=== PATIENT | female | born 1940 | race Hispanic/Latino ===

== ENCOUNTER 2016-11-04 09:41 | Outpatient (CLI) | payer MEDICARE, OTHER ==
[2016-11-04 10:18] LABS: Blood Urea Nitrogen 13 mg/dL (7-17)
[2016-11-04] MEDS ORDERED: NACL ONE (10:26)
--- NOTE | 2016-11-08 09:40 | Cat Scan Report ---
CT ANGIO ABD/FEMORAL ABD AORTA: HISTORY: Abdominal aortic aneurysm without rupture. TECHNIQUE: Helical CT imaging with 1.25mm reconstructions following IV contrast. Sagittal and Coronal 2D reformatted images. 3 dimensional volume rendering technique. Stenosis was measured using NASCET criteria. COMPARISON: 08/18/15. FINDINGS: ABDOMINAL AORTA: Moderate diffuse partially calcified plaques are identified throughout the abdominal aorta. Fusiform dilatation of the infrarenal aorta has increased slightly since the comparison exam and now measures 4.5 cm. Mural thrombus is stable. No aortic stenosis. The celiac axis and superior mesenteric artery are patent with less than 50% stenosis. The origin of the inferior mesenteric artery is occluded. The left renal artery is widely patent with less than 20% stenosis. There is moderate partially calcified plaque in the proximal right renal artery with stenosis measuring 60%. ILIAC ARTERIES: The right common iliac artery is occluded which is unchanged. Collateral vessels reconstitute flow in the right internal and external iliac arteries which demonstrate less than 30% stenosis. There is moderate irregular calcified plaque in the distal left common iliac artery with 60% stenosis. The left internal and external iliac arteries demonstrate less than 30% stenosis. RIGHT LOWER EXTREMITY: The superficial femoral artery is widely patent with less than 20% stenosis. There is a focal calcific plaque in the right popliteal artery with 70% stenosis. The arterial structures distal to the knee demonstrate mild disease but are patent to the ankle.. LEFT LOWER EXTREMITY: The superficial femoral artery is widely patent with less than 20% stenosis. There is also a focal area of narrowing in the left popliteal artery with 50% stenosis. The arterial structures distal to knee are patent to the ankle. Abdominal and pelvic viscera remain unremarkable. No evidence for mass, adenopathy or inflammatory changes. Right inguinal hernia containing a short segment of small bowel loops is again noted, no obstruction. Impression: The fusiform AAA has increased from 4.2 cm to 4.5 cm. Chronic occlusion of the right common iliac artery. Unchanged. 60 % stenosis in the left common iliac artery. 70% stenosis in the right popliteal artery. Possible right renal artery stenosis measuring 60% or greater.
== END 2016-11-04 09:42 | disposition home or self-care (01) ==
LOC: CT 09:41
PROVIDERS: ATTEND Surgery Vascular Surgery
DX: I66.23 Occlusion and stenosis of bilateral posterior cerebral arteries (principal); I71.4 Abdominal aortic aneurysm, without rupture
CPT/HCPCS: 36415; 75635; 82565; 84520; Q9967

== ENCOUNTER 2017-11-17 10:43 | Emergency (ER) | payer MEDICARE, OTHER ==
[2017-11-17 10:59] VITALS: BP 139/47
[2017-11-17] MEDS ORDERED: NORCO 5/325 PO ONE (11:58)
--- NOTE | 2017-11-17 11:58 | Emergency Department Report ---
Blank Doc - Documentation Documentation: Patient is 77-year-old female who tripped over a suitcase and fell yesterday. Patient has left foot and left rib pain. Patient is having a difficult time taking a deep breath secondary to pain in the ribs. Patient also is unable to bear weight. Patient will be sent to x-ray for x-rays of the left foot and left ribs and be reassessed by the NALLELY
--- NOTE | 2017-11-17 14:06 | XRay Report ---
LEFT FOOT, 3 views: History: Injury. Osteopenia. There is a questionable nondisplaced fracture through the fourth metatarsal neck. Correlate for point tenderness. The remaining bony structures are intact. No erosive joint pathology is appreciated. the soft tissues are unremarkable. IMPRESSION: Osteopenia. Questionable nondisplaced fracture of the fourth metatarsal neck. Correlate for point tenderness.
--- NOTE | 2017-11-17 14:07 | XRay Report ---
LEFT RIBS, 3 VIEWS: History: pain. Routine views of the rib cage demonstrate normal mineralization with no significant contour abnormalities, fractures or destructive lesions. PA view of the chest demonstrates no underlying cardiopulmonary abnormalities, fluid or pneumothorax. IMPRESSION: Unremarkable left rib series.
--- NOTE | 2017-11-17 15:02 | Emergency Department Report ---
ED Lower Extremity HPI - General Chief Complaint: Extremity Injury, Lower Stated Complaint: FALL Time Seen by Provider: 11/17/17 11:46 Source: patient, family Mode of arrival: Wheelchair Limitations: No Limitations - History of Present Illness Initial Comments: This is a 77-year-old female nontoxic, well nourished in appearance, no acute signs of distress presents to the ED with c/o of left foot and left rib pain status post fall. Patient stated she was walking last night and tripped over a suitcase and landed while falling she fell hit her left rib region against the lamp. Patient stated that she has slight difficulty taking deep breaths secondary to pain in the left rib region. Patient states she is unable to bear weight. Patient denies any head trauma or loss of consciousness. Patient denies any other trauma. Patient denies any chest pain, shortness of breath, fever, chills, nausea, vomiting, headache or stiff neck. Denies any numbness or tingling. Denies any joint swelling or joint redness. States allergies to penicillin. MD Complaint: foot injury, other (left rib pain) -: Last night Injury: Foot: Left Type of Injury: blunt Place: home Severity: mild Severity scale (0 -10): 8 Improves With: immobilization Worsens With: movement, palpation Context: fall, direct blow Associated Symptoms: unable to bear weight. denies: snap/pop sensation, swelling, numbness, tingling, able to partially bear weight, ambulatory - Related Data Previous Rx's Medication Instructions Recorded Last Taken Type Acetaminophen/Codeine [Tylenol 1 tab PO Q6H PRN #15 tab 11/17/17 Unknown Rx /Codeine # 3 tab] Allergies Allergy/AdvReac Type Severity Reaction Status Date / Time Penicillins AdvReac Unknown Unverified 06/15/13 12:59 ED Review of Systems ROS: Stated complaint: FALL Other details as noted in HPI Constitutional: denies: chills, fever Eyes: denies: eye pain, eye discharge, vision change ENT: denies: ear pain, throat pain Respiratory: denies: cough, shortness of breath, wheezing Cardiovascular: denies: chest pain, palpitations Endocrine: no symptoms reported Gastrointestinal: denies: abdominal pain, nausea, diarrhea Genitourinary: denies: urgency, dysuria, discharge Musculoskeletal: arthralgia. denies: back pain, joint swelling Skin: denies: rash, lesions Neurological: denies: headache, weakness, paresthesias Psychiatric: denies: anxiety, depression Hematological/Lymphatic: denies: easy bleeding, easy bruising ED Past Medical Hx - Past Medical History Hx Diabetes: Yes Hx COPD: Yes Additional medical history: Hx of A fib. - Surgical History Hx Cholecystectomy: Yes - Social History Smoking Status: Former Smoker Substance Use Type: None - Medications Home Medications: Home Medications Medication Instructions Recorded Confirmed Last Taken Type Acetaminophen/Codeine [Tylenol 1 tab PO Q6H PRN #15 tab 11/17/17 Unknown Rx /Codeine # 3 tab] ED Physical Exam - General Limitations: No Limitations General appearance: alert, in no apparent distress - Head Head exam: Present: atraumatic, normocephalic - Eye Eye exam: Present: normal appearance, PERRL, EOMI Pupils: Present: normal accommodation - ENT ENT exam: Present: normal exam, mucous membranes moist - Neck Neck exam: Present: normal inspection, full ROM. Absent: tenderness, meningismus - Respiratory Respiratory exam: Present: normal lung sounds bilaterally, chest wall tenderness (left lateral rib area). Absent: respiratory distress, wheezes, rales, rhonchi, stridor, accessory muscle use, decreased breath sounds, prolonged expiratory - Cardiovascular Cardiovascular Exam: Present: regular rate, normal rhythm, normal heart sounds. Absent: bradycardia, tachycardia, irregular rhythm, systolic murmur, diastolic murmur, rubs, gallop - GI/Abdominal GI/Abdominal exam: Present: soft, normal bowel sounds - Extremities Exam Extremities exam: Present: normal inspection, full ROM, tenderness, normal capillary refill. Absent: pedal edema, joint swelling, calf tenderness - Expanded Lower Extremity Exam Left Hip exam: Present: normal inspection, full ROM Upper Leg exam: Present: normal inspection, full ROM Knee exam: Present: normal inspection, full ROM Lower Leg exam: Present: normal inspection, full ROM Ankle exam: Present: normal inspection, full ROM. Absent: tenderness, swelling , abrasion, laceration, ecchymosis, deformity, crepidus, dislocation, erythema, anterior draw sign Foot/Toe exam: Present: normal inspection, full ROM, tenderness. Absent: swelling, abrasion, laceration, ecchymosis, deformity, crepidus, dislocation, erythema, amputation, puncture wound, foreign body, calcaneal tenderness, tenderness at base of 5th metatarsal, nail avulsion, subungual hematoma Neuro vascular tendon exam: Present: no vascular compromise. Absent: pulse deficit, abnormal cap refill, motor deficit, sensory deficit, tendon deficit, extremity cold to touch, pallor, abnormal 2-point discrimination, decreased fine /light touch, foot drop, peroneal nerve deficit, significant pain with passive ROM of distal joint Gait: Positive: unable to bear weight 1 - pain - Back Exam Back exam: Present: normal inspection, full ROM. Absent: tenderness, CVA tenderness (R), CVA tenderness (L), muscle spasm, paraspinal tenderness, vertebral tenderness, rash noted - Neurological Exam Neurological exam: Present: alert, oriented X3, normal gait - Psychiatric Psychiatric exam: Present: normal affect, normal mood - Skin Skin exam: Present: warm, dry, intact, normal color. Absent: rash ED Course Vital Signs 11/17/17 10:54 Temperature 98.0 F Pulse Rate 84 Respiratory 16 Rate Blood Pressure 139/47 O2 Sat by Pulse 94 Oximetry - Reevaluation(s) Reevaluation #1: 11/17/17 15:01 Patient is speaking in full sentences with no signs of distress noted. - Consultations Consultation #1: 11/17/17 15:02 Patient has been consulted with Dr. Rhodes about patient history, physical exam , and labs/xray and examined and screened patient and agrees to ED plan of care and discharge plan of care. ED Lower Extremity MDM - Medical Decision Making This is a 77-year-old female that presents with left rib contusion and left 5th metatarsal neck fracture. Patient is stable and was examined by me and Dr. Rhodes. X-ray has been obtained and dictated by the radiologist. Patient is notified of the x-ray report with noted by the patient. No joint swelling. No ecchymosis. no joint redness or swelling. Not warm to touch. No signs of cellulites present. Patient received a ortho shoe and patient stated has a walker at home. Patient was instructed to RICE therapy. Patient received medication for pain and was instructed not to operate any machinery after discharge and stated her son will drive her home.. Patient is discharged with Tylenol No. 3. At time of discharge, the patient does not seem toxic or ill in appearance. No acute signs of distress noted. Patient agrees to discharge treatment plan of care. No further questions noted by the patient. Critical care attestation.: If time is entered above; I have spent that time in minutes in the direct care of this critically ill patient, excluding procedure time. ED Disposition Clinical Impression: Fracture of fifth metatarsal bone Qualifiers: Encounter type: initial encounter Fracture type: closed Fracture alignment: nondisplaced Laterality: left Qualified Code(s): S92.355A - Nondisplaced fracture of fifth metatarsal bone, left foot, initial encounter for closed fracture Contusion of rib on left side Qualifiers: Encounter type: initial encounter Qualified Code(s): S20.212A - Contusion of left front wall of thorax, initial encounter Disposition: TO HOME OR SELFCARE Is pt being admited?: No Does the pt Need Aspirin: No Condition: Stable Instructions: Fall Prevention for Older Adults (ED), RICE Therapy (ED), Acetaminophen/Codeine (By mouth) Additional Instructions: Follow-up with a orthopedic doctor in 3-5 days or if symptoms worsen and continue return to emergency room as soon as possible. Prescriptions: Acetaminophen/Codeine [Tylenol /Codeine # 3 tab] 1 tab PO Q6H PRN #15 tab PRN Reason: Pain Referrals: PRIMARY CARE, [Primary Care Provider] - 3-5 Days NORMA CAMARENA MD [Staff Physician] - 3-5 Days [facility] [Outside] - 3-5 Days [facility] [Outside] - 3-5 Days
== END 2017-11-17 15:41 | disposition home or self-care (01) ==
LOC: ED 10:43
DX: S92.355A Nondisplaced fracture of fifth metatarsal bone, left foot, initial encounter for closed fracture (principal); S20.212A Contusion of left front wall of thorax, initial encounter; E11.9 Type 2 diabetes mellitus without complications; J44.9 Chronic obstructive pulmonary disease, unspecified; Z87.891 Personal history of nicotine dependence; Z88.8 Allergy status to other drugs, medicaments and biological substances; Z88.0 Allergy status to penicillin; W01.190A Fall on same level from slipping, tripping and stumbling with subsequent striking against furniture, initial encounter; Y93.89 Activity, other specified; Y92.89 Other specified places as the place of occurrence of the external cause; Y99.8 Other external cause status
CPT/HCPCS: 99283

== ENCOUNTER 2018-03-01 12:23 | Outpatient (CLI) | payer MEDICARE, OTHER ==
--- NOTE | 2018-03-01 16:29 | XRay Report ---
RIGHT FOOT THREE VIEWS: 03/01/18 12:31:00 CLINICAL: Right foot pain. FINDINGS: No fracture or dislocation. Normal joint spaces. Mild soft tissue swelling of the dorsum of the foot No soft tissue air or foreign body. IMPRESSION: Mild nonspecific soft tissue swelling.
== END 2018-03-01 12:24 | disposition home or self-care (01) ==
LOC: XRAY 12:23
PROVIDERS: ATTEND Orthopaedic Surgery
DX: R22.41 Localized swelling, mass and lump, right lower limb (principal); J44.9 Chronic obstructive pulmonary disease, unspecified; Z88.0 Allergy status to penicillin; Z87.891 Personal history of nicotine dependence; Z90.710 Acquired absence of both cervix and uterus; Z90.49 Acquired absence of other specified parts of digestive tract

== ENCOUNTER 2018-12-11 06:56 | Inpatient (IN) | payer MEDICARE, OTHER ==
[2018-12-11] MEDS ORDERED: DUONEB *Not for PRN Use IH ONE ×2 (07:09→11:39)
--- NOTE | 2018-12-11 07:18 | Emergency Department Report ---
ED Shortness of Breath HPI - General Stated Complaint: KISHAN Time Seen by Provider: 12/11/18 07:04 - History of Present Illness Initial Comments: This is an 78-year-old female with COPD. She states she has not been at this facility for 40 years since she had her last baby. She states she usually goes to [facility]. She was last admitted in September with pneumonia. She is here today for difficulty in breathing. She states that despite her home nebs her breathing difficulty has worsened for the last at least 1 week. She does take prednisone now. She denies chest pain. She denies significant productive sputum. She denies fever or chills. Patient has received breathing treatments en route. Gear Tester states that she is on home O2 and had a pulse oximetry of 90% on their arrival. She had appreciable improvement of her respiratory difficulty since they've begun nebulized therapy, Solu-Medrol and magnesium sulfate. Complaint: shortness of breath -: Gradual, week(s) Known History Of: COPD Associated Symptoms: denies other symptoms Treatments Prior to Arrival: bronchodilator (steroids and magnesium) - Related Data Home Oxygen Therapy: Yes Home Oxygen Amount: 2 Liters Previous Rx's Medication Instructions Recorded Last Taken Type Acetaminophen/Codeine [Tylenol 1 tab PO Q6H PRN #15 tab 11/17/17 Unknown Rx /Codeine # 3 tab] Allergies Allergy/AdvReac Type Severity Reaction Status Date / Time Penicillins AdvReac Unknown Verified 12/11/18 09:40 ED Review of Systems ROS: Stated complaint: KISHAN Other details as noted in HPI Constitutional: denies: chills, fever Eyes: denies: eye pain, eye discharge, vision change ENT: denies: ear pain, throat pain Respiratory: see HPI, shortness of breath, wheezing. denies: cough (denies s ignificant cough) Cardiovascular: denies: chest pain, palpitations Endocrine: no symptoms reported Gastrointestinal: denies: abdominal pain, nausea, diarrhea Genitourinary: denies: urgency, dysuria, discharge Musculoskeletal: denies: back pain, joint swelling, arthralgia Skin: denies: rash, lesions Neurological: denies: headache, weakness, paresthesias Psychiatric: denies: anxiety, depression Hematological/Lymphatic: denies: easy bleeding, easy bruising ED Past Medical Hx - Past Medical History Hx Diabetes: Yes Hx COPD: Yes Additional medical history: Hx of A fib. States history of stenotic vessel in her left shoulder and right groin and abdominal aortic aneurysm. states she has been told that she is not a surgical candidate. Denies any history of percutaneous interventions. - Surgical History Hx Cholecystectomy: Yes - Social History Smoking Status: Former Smoker Substance Use Type: None - Medications Home Medications: Home Medications Medication Instructions Recorded Confirmed Last Taken Type Acetaminophen/Codeine [Tylenol 1 tab PO Q6H PRN #15 tab 11/17/17 Unknown Rx /Codeine # 3 tab] ED Physical Exam - General Limitations: Physical Limitation General appearance: alert, in no apparent distress - Head Head exam: Present: atraumatic, normocephalic - Eye Eye exam: Present: normal appearance. Absent: scleral icterus - ENT ENT exam: Present: mucous membranes moist - Neck Neck exam: Present: normal inspection. Absent: tenderness, meningismus - Respiratory Respiratory exam: Present: wheezes (end expiratory), decreased breath sounds. Absent: respiratory distress - Cardiovascular Cardiovascular Exam: Present: regular rate, normal rhythm. Absent: systolic murmur, diastolic murmur, rubs, gallop - GI/Abdominal GI/Abdominal exam: Present: soft, normal bowel sounds. Absent: distended, tenderness, guarding, rebound - Extremities Exam Extremities exam: Present: normal inspection, pedal edema (mild) - Back Exam Back exam: Present: normal inspection - Neurological Exam Neurological exam: Present: alert, oriented X3, CN II-XII intact. Absent: motor sensory deficit - Psychiatric Psychiatric exam: Present: normal mood, flat affect - Skin Skin exam: Present: warm, dry, intact, normal color. Absent: rash ED Course Vital Signs 12/11/18 07:15 Temperature 97.7 F Pulse Rate 113 H Respiratory 21 Rate Blood Pressure 133/66 O2 Sat by Pulse 97 Oximetry - Reevaluation(s) Reevaluation #1: Patient reiterated her lack of chest pain tightness or pressure. She does have increased [place] phase but no genie wheezing. She has improved somewhat. She does look volume repleted. She'll be given fluids. She was noted to have a mildly elevated troponin. She is noted to be tachycardic. Lactic acid level was normal. I do not know her baseline creatinine but it is not surprising that it is elevated. I'm going to give her a dose of azithromycin* 12/11/18 09:36 Reevaluation #2: Discussed with hospitalist. Empiric antibiotics. Admission. 12/11/18 10:05 ED Medical Decision Making - Lab Data Result diagrams: 12/11/18 08:06 12/11/18 08:06 Laboratory Results - last 24 hr 12/11/18 12/11/18 12/11/18 08:06 08:06 08:06 WBC 10.7 RBC 3.44 L Hgb 8.4 L Hct 25.6 L MCV 74 L MCH 25 L MCHC 33 RDW 17.2 H Plt Count 317 Lymph % (Auto) 5.9 L [place] % (Auto) 5.4 Eos % (Auto) 0.2 Baso % (Auto) 0.2 Lymph # 0.6 L [place] # 0.6 Eos # 0.0 Baso # 0.0 Seg Neutrophils % 88.3 H Seg Neutrophils # 9.5 H PT 16.6 H INR 1.26 H APTT 33.1 Sodium 141 Potassium 3.6 Chloride 100.3 Carbon Dioxide 28 Anion Gap 16 BUN 28 H Creatinine 1.9 H Estimated GFR 25 BUN/Creatinine Ratio 15 Glucose 190 H Lactic Acid Calcium 8.6 Total Bilirubin 0.30 Direct Bilirubin < 0.2 Indirect Bilirubin 0.1 AST 70 H ALT 61 H Alkaline Phosphatase 113 Total Creatine Kinase 41 CK-MB (CK-2) 3.1 CK-MB (CK-2) Rel Index 7.5 H Troponin T 0.048 H NT-Pro-B Natriuret Pep > 67931 H Total Protein 6.5 Albumin 3.1 L Albumin/Globulin Ratio 0.9 Triglycerides 67 Cholesterol 151 LDL Cholesterol Direct 67 HDL Cholesterol 77 H Cholesterol/HDL Ratio 1.96 12/11/18 08:06 WBC RBC Hgb Hct MCV MCH MCHC RDW Plt Count Lymph % (Auto) [place] % (Auto) Eos % (Auto) Baso % (Auto) Lymph # [place] # Eos # Baso # Seg Neutrophils % Seg Neutrophils # PT INR APTT Sodium Potassium Chloride Carbon Dioxide Anion Gap BUN Creatinine Estimated GFR BUN/Creatinine Ratio Glucose Lactic Acid 1.50 Calcium Total Bilirubin Direct Bilirubin Indirect Bilirubin AST ALT Alkaline Phosphatase Total Creatine Kinase CK-MB (CK-2) CK-MB (CK-2) Rel Index Troponin T NT-Pro-B Natriuret Pep Total Protein Albumin Albumin/Globulin Ratio Triglycerides Cholesterol LDL Cholesterol Direct HDL Cholesterol Cholesterol/HDL Ratio - EKG Data -: EKG Interpreted by Me EKG shows normal: sinus rhythm, axis, intervals, QRS complexes, ST-T waves Rate: normal - EKG Data Interpretation: no acute changes - Radiology Data Radiology results: report reviewed (looked to me like the patient had at least mild left infiltrate predominantly. Radiologist read as bilateral infiltrates) Critical care attestation.: If time is entered above; I have spent that time in minutes in the direct care of this critically ill patient, excluding procedure time. ED Disposition Clinical Impression: Pulmonary infiltrates, COPD exacerbation, Elevated troponin, Renal insufficiency Disposition: OP ADMIT IP TO THIS HOSP Is pt being admited?: Yes Does the pt Need Aspirin: Yes Condition: Stable Instructions: Chronic Obstructive Pulmonary Disease (ED) Referrals: PRIMARY CAREMD [Primary Care Provider] - 3-5 Days Time of Disposition: 10:06
[2018-12-11 08:33] LABS: Basophils % (Auto) 0.2 % (0.0-1.8); Eosinophils % (Auto) 0.2 % (0.0-4.3); Hematocrit 25.6 % (30.3-42.9); Hemoglobin 8.4 gm/dl (10.1-14.3); Lymphocytes # (Auto) 0.6 K/mm3 (1.2-5.4); Lymphocytes % (Auto) 5.9 % (13.4-35.0); Mean Corpuscular HGB Conc 33 % (30-34); Mean Corpuscular Volume 74 fl (79-97); Monocytes # (Auto) 0.6 K/mm3 (0.0-0.8); Monocytes % (Auto) 5.4 % (0.0-7.3); Platelet Count 317 K/mm3 (140-440); Red Blood Count 3.44 M/mm3 (3.65-5.03); Red Cell Distribution Width 17.2 % (13.2-15.2)
[2018-12-11 08:41] LABS: INR 1.26 (0.87-1.13)
[2018-12-11 08:42] LABS: Partial Thromboplastin Time 33.1 Sec. (24.2-36.6)
[2018-12-11 08:49] LABS: Creatine Kinase MB 3.1 ng/mL (0.0-4.0)
[2018-12-11 08:52] LABS: Alanine Aminotransferase 61 units/L (7-56); Albumin 3.1 g/dL (3.9-5); BUN/Creatinine Ratio 15; Blood Urea Nitrogen 28 mg/dL (7-17); Calcium 8.6 mg/dL (8.4-10.2); Hemolysis Index 1
[2018-12-11 09:01] LABS: Bilirubin,Direct < 0.2 mg/dL (0-0.2)
[2018-12-11 09:05] LABS: Chol/HDL Ratio 1.96 %; HDL Cholesterol 77 mg/dL (40-59); LDL Cholesterol,Direct 67 mg/dL (50-130)
--- NOTE | 2018-12-11 09:17 | XRay Report ---
AP CHEST: HISTORY: Difficulty in breathing, COPD Underlying emphysema is suspected. Mild cardiomegaly, mild pulmonary venous congestion and trace right pleural effusion are identified. No obvious mass, infiltrate or pneumothorax. The bony structures are grossly intact. Right arm PICC appears to terminate in the right axillary vein. IMPRESSION: Emphysematous changes. Mild CHF.
[2018-12-11] MEDS ORDERED: NACL 0.9% 1000 ML 1,000 ML IV ONE (09:33)
[2018-12-11] MEDS ORDERED: SODIUM CHLORIDE FLUSH SYRINGE 10 ML IV PRN (09:48)
[2018-12-11] MEDS ORDERED: ZOFRAN IV PRN (09:48)
[2018-12-11] MEDS ORDERED: TYLENOL PO PRN (09:48)
--- NOTE | 2018-12-11 09:48 | History and Physical Report ---
History of Present Illness Date of examination: 12/11/18 Date of admission: 12/11/18 Chief complaint: Increasing SOB for 1 month History of present illness: 78 year old female with history of COPD comes in for SOB for one month but worsining over last 24 hours.No fever or chills.No recent travel.Cough productive of mucoid to green sputum.Has been using Nebulizer machine at home with no relief.Smoker till few years ago.On Home O2 2 liters. Past Medical History Diabetes: Yes COPD: Yes Hx of A fib. 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 states she has been told that she is not a surgical candidate. Denies any history of percutaneous interventions. Surgical History Hx Cholecystectomy: Yes Social History Smoking Status: Former Smoker Substance Use Type: None Medications Home Medications: Home Medications Medication Instructions Recorded Confirmed Last Taken Type Acetaminophen/Codeine [Tylenol 1 tab PO Q6H PRN #15 tab 11/17/17 Unknown Rx /Codeine # 3 tab] Review of Systems ROS: Stated complaint: KISHAN Other details as noted in HPI Constitutional: denies: chills, fever Eyes: denies: eye pain, eye discharge, vision change ENT: denies: ear pain, throat pain Respiratory: see HPI, shortness of breath, wheezing. denies: cough (denies significant cough) Cardiovascular: denies: chest pain, palpitations Endocrine: no symptoms reported Gastrointestinal: denies: abdominal pain, nausea, diarrhea Genitourinary: denies: urgency, dysuria, discharge Musculoskeletal: denies: back pain, joint swelling, arthralgia Skin: denies: rash, lesions Neurological: denies: headache, weakness, paresthesias Psychiatric: denies: anxiety, depression Hematological/Lymphatic: denies: easy bleeding, easy bruising Medications and Allergies Allergies Allergy/AdvReac Type Severity Reaction Status Date / Time Penicillins AdvReac Unknown Verified 12/11/18 09:40 Home Medications Medication Instructions Recorded Confirmed Last Taken Type ALBUTEROL Inhaler (OR & NICU) 1 puff IH Q4H PRN 12/11/18 12/11/18 Unknown History [Proair] Doxazosin [Cardura] 1 mg PO QHS 12/11/18 12/11/18 Unknown History Fluticasone/Salmeterol [Advair 1 puff IH BID 12/11/18 12/11/18 Unknown History Diskus 250-50 mcg] dilTIAZem CD [Cardizem Cd] 240 mg PO QDAY 12/11/18 12/11/18 Unknown History prednisoLONE [Millipred] 10 mg PO Q2D 12/11/18 12/11/18 Unknown History Active Meds: Active Medications Sodium Chloride (Nacl 0.9% 1000 Ml) 1,000 mls @ 125 mls/hr IV ONCE ONE Stop: 12/11/18 17:32 Exam - Constitutional Vitals: Temp Pulse Resp BP Pulse Ox 97.7 F 113 H 21 133/66 97 12/11/18 07:15 12/11/18 07:15 12/11/18 07:15 12/11/18 07:15 12/11/18 07:15 General appearance: Present: severe distress, well-nourished - EENT Eyes: Present: PERRL ENT: hearing intact, clear oral mucosa - Neck Neck: Present: supple, normal ROM - Respiratory Respiratory effort: normal Respiratory: bilateral: diminished, rhonchi, wheezing - Cardiovascular Heart rate: 78 Rhythm: regular Heart Sounds: Present: S1 & S2. Absent: rub, click - Extremities Extremities: no ischemia, pulses intact, pulses symmetrical, No edema Peripheral Pulses: within normal limits - Abdominal General gastrointestinal: Present: soft, non-tender, non-distended, normal bowel sounds Female genitourinary: Present: normal - Integumentary Integumentary: Present: clear, warm, dry - Musculoskeletal Musculoskeletal: gait normal, strength equal bilaterally - Psychiatric Psychiatric: appropriate mood/affect, intact judgment & insight - Neurologic Neurologic: CNII-XII intact, moves all extremities - Allied Health Allied health notes reviewed: nursing, case management Results - Labs CBC & Chem 7: 12/11/18 08:06 12/11/18 08:06 Labs: Laboratory Last Values WBC 10.7 K/mm3 (4.5-11.0) 12/11/18 08:06 RBC 3.44 M/mm3 (3.65-5.03) L 12/11/18 08:06 Hgb 8.4 gm/dl (10.1-14.3) L 12/11/18 08:06 Hct 25.6 % (30.3-42.9) L 12/11/18 08:06 MCV 74 fl (79-97) L 12/11/18 08:06 MCH 25 pg (28-32) L 12/11/18 08:06 MCHC 33 % (30-34) 12/11/18 08:06 RDW 17.2 % (13.2-15.2) H 12/11/18 08:06 Plt Count 317 K/mm3 (140-440) 12/11/18 08:06 Lymph % (Auto) 5.9 % (13.4-35.0) L 12/11/18 08:06 [place] % (Auto) 5.4 % (0.0-7.3) 12/11/18 08:06 Eos % (Auto) 0.2 % (0.0-4.3) 12/11/18 08:06 Baso % (Auto) 0.2 % (0.0-1.8) 12/11/18 08:06 Lymph # 0.6 K/mm3 (1.2-5.4) L 12/11/18 08:06 [place] # 0.6 K/mm3 (0.0-0.8) 12/11/18 08:06 Eos # 0.0 K/mm3 (0.0-0.4) 12/11/18 08:06 Baso # 0.0 K/mm3 (0.0-0.1) 12/11/18 08:06 Seg Neutrophils % 88.3 % (40.0-70.0) H 12/11/18 08:06 Seg Neutrophils # 9.5 K/mm3 (1.8-7.7) H 12/11/18 08:06 PT 16.6 Sec. (12.2-14.9) H 12/11/18 08:06 INR 1.26 (0.87-1.13) H 12/11/18 08:06 APTT 33.1 Sec. (24.2-36.6) 12/11/18 08:06 Sodium 141 mmol/L (137-145) 12/11/18 08:06 Potassium 3.6 mmol/L (3.6-5.0) 12/11/18 08:06 Chloride 100.3 mmol/L (98-107) 12/11/18 08:06 Carbon Dioxide 28 mmol/L (22-30) 12/11/18 08:06 16 mmol/L 12/11/18 08:06 BUN 28 mg/dL (7-17) H 12/11/18 08:06 1.9 mg/dL (0.7-1.2) H 12/11/18 08:06 Estimated GFR 25 ml/min 12/11/18 08:06 15 % 12/11/18 08:06 Glucose 190 mg/dL (65-100) H 12/11/18 08:06 Lactic Acid 1.50 mmol/L (0.7-2.0) 12/11/18 08:06 Calcium 8.6 mg/dL (8.4-10.2) 12/11/18 08:06 0.30 mg/dL (0.1-1.2) 12/11/18 08:06 < 0.2 mg/dL (0-0.2) 12/11/18 08:06 0.1 mg/dL 12/11/18 08:06 AST 70 units/L (5-40) H 12/11/18 08:06 ALT 61 units/L (7-56) H 12/11/18 08:06 113 units/L (35-129) 12/11/18 08:06 41 units/L (30-135) 12/11/18 08:06 CK-MB (CK-2) 3.1 ng/mL (0.0-4.0) 12/11/18 08:06 CK-MB (CK-2) Rel Index 7.5 (0-4) H 12/11/18 08:06 0.048 ng/mL (0.00-0.029) H 12/11/18 08:06 NT-Pro-B Natriuret Pep > 20584 pg/mL (0-900) H 12/11/18 08:06 6.5 g/dL (6.3-8.2) 12/11/18 08:06 3.1 g/dL (3.9-5) L 12/11/18 08:06 0.9 % 12/11/18 08:06 Triglycerides 67 mg/dL (2-149) 12/11/18 08:06 Cholesterol 151 mg/dL (50-199) 12/11/18 08:06 67 mg/dL (50-130) 12/11/18 08:06 77 mg/dL (40-59) H 12/11/18 08:06 1.96 % 12/11/18 08:06 Short CBC 12/11/18 Range/Units 08:06 WBC 10.7 (4.5-11.0) K/mm3 Hgb 8.4 L (10.1-14.3) gm/dl Hct 25.6 L (30.3-42.9) % Plt Count 317 (140-440) K/mm3 BMP 12/11/18 08:06 Sodium 141 Potassium 3.6 Chloride 100.3 Carbon Dioxide 28 BUN 28 H Creatinine 1.9 H Glucose 190 H Calcium 8.6 Cardiac Enzymes 12/11/18 Range/Units 08:06 Total Creatine Kinase 41 (30-135) units/L CK-MB (CK-2) 3.1 (0.0-4.0) ng/mL Troponin T 0.048 H (0.00-0.029) ng/mL Liver Function 12/11/18 Range/Units 08:06 Total Bilirubin 0.30 (0.1-1.2) mg/dL Direct Bilirubin < 0.2 (0-0.2) mg/dL AST 70 H (5-40) units/L ALT 61 H (7-56) units/L Alkaline Phosphatase 113 (35-129) units/L Albumin 3.1 L (3.9-5) g/dL Urine 12/11/18 Range/Units 12:59 Urine Color Yellow (Yellow) Urine pH 5.0 (5.0-7.0) Ur Specific [place] 1.015 (1.003-1.030) Urine Protein 30 mg/dl (Negative) mg/dL Urine Glucose (UA) Neg (Negative) mg/dL - Imaging and Cardiology EKG: report reviewed Chest x-ray: report reviewed Imaging and Cardiology: CXR Underlying emphysema is suspected. Mild cardiomegaly, mild pulmonary venous congestion and trace right pleural effusion are identified. No obvious mass, infiltrate or pneumothorax. The bony structures are grossly intact. Right arm PICC appears to terminate in the right axillary vein. IMPRESSION: Emphysematous changes. Mild CHF. Assessment and Plan Advance Directives: Yes (Full code) VTE prophylaxis?: Chemical Plan of care discussed with patient/family: Yes - Patient Problems (1) Respiratory failure with hypoxia Current Visit: Yes Status: Acute Qualifiers: Chronicity: acute on chronic Qualified Code(s): J96.21 - Acute and chronic respiratory failure with hypoxia Plan to address problem: Patient initiated on IV Solumedrol IV Abx and Duonebs RTX and ALbuterol prn (2) COPD exacerbation Current Visit: Yes Status: Acute Plan to address problem: Patient initiated on IV Solumedrol IV Abx and Duonebs RTX and ALbuterol prn (3) T2DM (type 2 diabetes mellitus) Current Visit: Yes Status: Chronic Qualifiers: Diabetes mellitus group home insulin use: unspecified group home insulin use status Plan to address problem: Check A1c Accucheks AC /HS Insulin coverage (4) Anemia Current Visit: Yes Status: Chronic Qualifiers: Anemia type: unspecified type Qualified Code(s): D64.9 - Anemia, unspecified Plan to address problem: Anemia work up (5) Elevated brain natriuretic peptide (BNP) level Current Visit: Yes Status: Acute Plan to address problem: Will get ECHO and cardiology consult IV Lasix q12 (6) ROSITA (acute kidney injury) Current Visit: Yes Status: Acute Plan to address problem: Patient on diuretics will get Nephrology consult (7) Transaminitis Current Visit: Yes Status: Acute Plan to address problem: Hepatic congestion?? Hepatitis profile ordered (8) UTI (urinary tract infection) Current Visit: Yes Status: Acute Qualifiers: Urinary tract infection type: acute cystitis Plan to address problem: On Ceftriaxone for COPD exacerbation (9) Malnutrition Current Visit: Yes Status: Chronic Qualifiers: Protein-calorie malnutrition severity: moderate Plan to address problem: Dietitian consult (10) DVT prophylaxis Current Visit: Yes Status: Acute Plan to address problem: On lovenox and GI prophylaxis
[2018-12-11] MEDS ORDERED: LOVENOX SUB-Q SCH (10:00)
[2018-12-11] MEDS ORDERED: BABY ASPIRIN PO ONE (10:06)
[2018-12-11 11:05] LABS: Free T4 (Free Thyroxine) 1.55 ng/dL (0.76-1.46)
[2018-12-11] MEDS: LOVENOX SUB-Q SCH (11:54)
[2018-12-11] MEDS: SODIUM CHLORIDE FLUSH SYRINGE 10 ML IV SCH ×2 (11:55→22:31)
[2018-12-11] MEDS: SOLU-Medrol IV SCH ×3 (12:42→22:31)
[2018-12-11] MEDS: DUONEB *Not for PRN Use IH SCH ×3 (12:52→19:59)
[2018-12-11] MEDS: ZITHROMAX 500 MG in NACL 0.9% 250ML 250 ML IV SCH (13:29)
[2018-12-11 13:57] LABS: Bilirubin,Urine NEG (Negative); Blood,Urine NEG (Negative); Color,Urine Yellow (Yellow); Hyaline Casts,Urine 1 /LPF; Mucus,Urine FEW /HPF; Urobilinogen,Urine < 2.0 mg/dL (<2.0)
[2018-12-11] MEDS: ROCEPHIN/NS 2 GM/100 ML 2 GM/100 ML BAG IV SCH (14:59)
[2018-12-11] MEDS: PROVENTIL IH PRN (20:08)
[2018-12-11] MEDS ORDERED: NACL 0.9% 1000 ML 1,000 ML ONE (20:13)
[2018-12-11] MEDS ORDERED: ATIVAN IV ONE (22:23)
[2018-12-12] MEDS ORDERED: ATIVAN IV ONE (01:00)
[2018-12-12] MEDS: SOLU-Medrol IV SCH ×3 (05:42→22:02)
[2018-12-12] MEDS ORDERED: TYLENOL PO PRN (06:18)
[2018-12-12] MEDS ORDERED: SODIUM CHLORIDE FLUSH SYRINGE 10 ML IV PRN (06:18)
[2018-12-12] MEDS: PROVENTIL IH PRN (06:18)
[2018-12-12] MEDS ORDERED: ZOFRAN IV PRN (06:18)
[2018-12-12 08:28] LABS: % Iron Saturation 5.2 %
[2018-12-12] MEDS: PULMICORT IH SCH ×2 (09:00→20:27)
[2018-12-12] MEDS: DUONEB *Not for PRN Use IH SCH ×4 (09:00→20:27)
[2018-12-12] MEDS: BROVANA NEBU IH SCH ×2 (09:00→20:27)
--- NOTE | 2018-12-12 09:37 | Consultation ---
History of Present Illness Consult date: 12/12/18 Consult reason: congestive heart failure History of present illness: This is an 78 year old woman with chronic lung disease, severe COPD on home oxygen who presents to the emergency department with shortness of breath, wheezing admitted with COPD exacerbation, acute renal failure and dehydration. Initial labs shows a creatinine at 1.9 and hematocrit of 25. Chest x-ray reports emphysematous changes. Patient denies chest pain and there is no lower extremity edema. EKG is sinus tachycardia, likely physiologic due to bronchodilators. Patient is known to [facility]. She has a cardiac history of MAT, managed with diltiazem. Her latest echocardiogram documents a normal ejection fraction 55-60%. Medications and Allergies Allergies Allergy/AdvReac Type Severity Reaction Status Date / Time Penicillins AdvReac Unknown Verified 12/11/18 09:40 Home Medications Medication Instructions Recorded Confirmed Last Taken Type ALBUTEROL Inhaler (OR & NICU) 1 puff IH Q4H PRN 12/11/18 12/11/18 Unknown History [Proair] Doxazosin [Cardura] 1 mg PO QHS 12/11/18 12/11/18 Unknown History Fluticasone/Salmeterol [Advair 1 puff IH BID 12/11/18 12/11/18 Unknown History Diskus 250-50 mcg] dilTIAZem CD [Cardizem Cd] 240 mg PO QDAY 12/11/18 12/11/18 Unknown History prednisoLONE [Millipred] 10 mg PO Q2D 12/11/18 12/11/18 Unknown History Active Meds: Active Medications Acetaminophen (Tylenol) 650 mg PO Q4H PRN PRN Reason: Pain MILD(1-3)/Fever >100.5/JOAQUIN Albuterol (Proventil) 2.5 mg IH Q4HRT PRN PRN Reason: Shortness Of Breath Last Admin: 12/12/18 06:18 Dose: 2.5 mg Documented by: Albuterol/Ipratropium (Duoneb *Not For Prn Use*) 1 ampul IH QIDRT [facility] Last Admin: 12/12/18 09:00 Dose: 1 ampul Documented by: Arformoterol Tartrate (Brovana Nebu) 15 mcg IH Q12HRT [facility] Last Admin: 12/12/18 09:00 Dose: 15 mcg Documented by: Budesonide (Pulmicort) 0.5 mg IH Q12HRT [facility] Last Admin: 12/12/18 09:00 Dose: 0.5 mg Documented by: Diltiazem HCl (Cardizem Cd) 240 mg PO QDAY [facility] Doxazosin Mesylate (Cardura) 1 mg PO QHS [facility] Enoxaparin Sodium (Lovenox) 30 mg SUB-Q QDAY [facility] Last Admin: 12/11/18 11:54 Dose: 30 mg Documented by: Furosemide (Lasix) 40 mg IV 0600,1800 [facility] Azithromycin 500 mg/ Sodium (Chloride) 250 mls @ 250 mls/hr IV Q24HR [facility] Last Admin: 12/11/18 13:29 Dose: 250 mls/hr Documented by: Ceftriaxone Sodium (Rocephin/Ns 2 Gm/100 Ml) 2 gm in 100 mls @ 200 mls/hr IV Q24HR [facility]; Protocol Last Admin: 12/11/18 14:59 Dose: 200 mls/hr Documented by: Insulin Human Lispro (Humalog) 0 unit SUB-Q ACHS [facility]; Protocol Methylprednisolone Sodium Succinate (Solu-Medrol) 125 mg IV Q8HR [facility] Last Admin: 12/12/18 05:42 Dose: 125 mg Documented by: Ondansetron HCl (Zofran) 4 mg IV Q8H PRN PRN Reason: Nausea And Vomiting Potassium Chloride (K-Dur) 20 meq PO Q12HR [facility] Sodium Chloride (Sodium Chloride Flush Syringe 10 Ml) 10 ml IV BID [facility] Last Admin: 12/11/18 22:31 Dose: 10 ml Documented by: Sodium Chloride (Sodium Chloride Flush Syringe 10 Ml) 10 ml IV PRN PRN PRN Reason: LINE FLUSH Physical Examination Vital Signs Pulse Ox 97 12/11/18 07:07 General appearance: no acute distress HEENT: Positive: PERRL Cardiac: Positive: Tachycardia Lungs: Positive: Decreased Breath Sounds, Wheezes Neuro: Positive: Grossly Intact Extremities: Absent: edema Results 12/11/18 08:06 12/11/18 08:06 Assessment and Plan COPD exacerbation Acute renal failure Dehydration Hypertension History of MAT on diltiazem for suppression History of Anemia/GI bleed History of AAA measuring 4.5 cm. followed by vascular as an outpatient
[2018-12-12 09:44] LABS: Albumin 3.5 g/dL (3.9-5); Calcium 8.8 mg/dL (8.4-10.2)
[2018-12-12] MEDS: ZITHROMAX 500 MG in NACL 0.9% 250ML 250 ML IV SCH (09:50)
[2018-12-12] MEDS: LOVENOX SUB-Q SCH (09:51)
[2018-12-12] MEDS ORDERED: SODIUM CHLORIDE FLUSH SYRINGE 10 ML IV SCH (10:00)
[2018-12-12] MEDS ORDERED: NON-FORMULARY (Fluticasone/Salmeterol [Advair Diskus 250-50 Mcg] 1 PUFF) IH SCH (10:00)
[2018-12-12] MEDS ORDERED: K-DUR PO SCH (10:00)
[2018-12-12] MEDS: CARDIZEM CD PO SCH (10:00)
--- NOTE | 2018-12-12 10:31 | Progress Note ---
Assessment and Plan Assessment and plan: --Acute exacerbation of COPD; Home oxygen dependent, oxygen O2 sats more than 90%, nebulizers IV steroids, IV antibiotics, pulmonary consultation if needed --Acute hypoxic respiratory failure; secondary to COPD exacerbation Continue about treatment --Type 2 diabetes mellitus; Accu-Chek sliding scale coverage and ADA diet Insulin as needed, hemoglobin A1c 5.7, diabetic diet --Elevated BNP; normal echocardiogram, ejection fraction normal Cardiology evaluated the patient, no evidence of congestive heart --Acute kidney injury; secondary to ATN Closely monitor renal function, avoid nephrotoxins, nephrology following --History of iron deficiency anemia; closely monitor H&H Transfuse as needed, iron supplements --History of GI bleed in the past; closely monitor --Mild malnutrition. Albumin 3.1-3.5 Supportive care --DVT prophylaxis; Lovenox renal dose Monitor closely and adjust his management as needed History Interval history: Patient seen and examined medical records reviewed No new events reported by the nursing Admitted with COPD exacerbation seems slightly better Hospitalist Physical - Constitutional Vitals: Temp Pulse Resp BP Pulse Ox 98.0 F 120 H 26 H 102/62 98 12/12/18 03:16 12/12/18 09:12 12/12/18 10:00 12/12/18 03:16 12/12/18 10:00 General appearance: Present: no acute distress, well-nourished - EENT Eyes: Present: PERRL, EOM intact - Neck Neck: Present: supple, normal ROM - Respiratory Respiratory effort: normal Respiratory: bilateral: diminished, negative: rales, rhonchi, wheezing - Cardiovascular Rhythm: regular Heart Sounds: Present: S1 & S2 - Extremities Extremities: no ischemia, No edema - Abdominal General gastrointestinal: soft, non-tender, non-distended, normal bowel sounds - Integumentary Integumentary: Present: clear, warm - Psychiatric Psychiatric: appropriate mood/affect, cooperative - Neurologic Neurologic: CNII-XII intact, moves all extremities Results - Labs CBC & Chem 7: 12/11/18 08:06 12/12/18 06:58 Labs: Laboratory Last Values WBC 10.7 K/mm3 (4.5-11.0) 12/11/18 08:06 RBC 3.44 M/mm3 (3.65-5.03) L 12/11/18 08:06 Hgb 8.4 gm/dl (10.1-14.3) L 12/11/18 08:06 Hct 25.6 % (30.3-42.9) L 12/11/18 08:06 MCV 74 fl (79-97) L 12/11/18 08:06 MCH 25 pg (28-32) L 12/11/18 08:06 MCHC 33 % (30-34) 12/11/18 08:06 RDW 17.2 % (13.2-15.2) H 12/11/18 08:06 Plt Count 317 K/mm3 (140-440) 12/11/18 08:06 Lymph % (Auto) 5.9 % (13.4-35.0) L 12/11/18 08:06 [place] % (Auto) 5.4 % (0.0-7.3) 12/11/18 08:06 Eos % (Auto) 0.2 % (0.0-4.3) 12/11/18 08:06 Baso % (Auto) 0.2 % (0.0-1.8) 12/11/18 08:06 Lymph # 0.6 K/mm3 (1.2-5.4) L 12/11/18 08:06 [place] # 0.6 K/mm3 (0.0-0.8) 12/11/18 08:06 Eos # 0.0 K/mm3 (0.0-0.4) 12/11/18 08:06 Baso # 0.0 K/mm3 (0.0-0.1) 12/11/18 08:06 Seg Neutrophils % 88.3 % (40.0-70.0) H 12/11/18 08:06 Seg Neutrophils # 9.5 K/mm3 (1.8-7.7) H 12/11/18 08:06 PT 16.6 Sec. (12.2-14.9) H 12/11/18 08:06 INR 1.26 (0.87-1.13) H 12/11/18 08:06 APTT 33.1 Sec. (24.2-36.6) 12/11/18 08:06 Sodium 141 mmol/L (137-145) 12/12/18 06:58 Potassium 5.0 mmol/L (3.6-5.0) D 12/12/18 06:58 Chloride 101.0 mmol/L (98-107) 12/12/18 06:58 Carbon Dioxide 24 mmol/L (22-30) 12/12/18 06:58 21 mmol/L 12/12/18 06:58 BUN 38 mg/dL (7-17) H 12/12/18 06:58 2.0 mg/dL (0.7-1.2) H 12/12/18 06:58 Estimated GFR 24 ml/min 12/12/18 06:58 19 % 12/12/18 06:58 Glucose 224 mg/dL (65-100) H 12/12/18 06:58 POC Glucose 231 (70-105) H 12/12/18 07:39 5.7 % (4-6) 12/11/18 08:06 Lactic Acid 1.50 mmol/L (0.7-2.0) 12/11/18 08:06 Calcium 8.8 mg/dL (8.4-10.2) 12/12/18 06:58 Phosphorus 6.10 mg/dL (2.5-4.5) H 12/12/18 06:58 Magnesium 2.60 mg/dL (1.7-2.3) H 12/12/18 06:58 Iron 14 ug/dL (37-170) L 12/12/18 06:58 TIBC 269 mcg/dL (250-450) 12/12/18 06:58 % Saturation 5.20 % 12/12/18 06:58 235 mg/dl (192-382) 12/12/18 06:58 0.20 mg/dL (0.1-1.2) 12/12/18 06:58 < 0.2 mg/dL (0-0.2) 12/11/18 08:06 0.1 mg/dL 12/11/18 08:06 AST 72 units/L (5-40) H 12/12/18 06:58 ALT 99 units/L (7-56) H 12/12/18 06:58 118 units/L (35-129) 12/12/18 06:58 41 units/L (30-135) 12/11/18 08:06 CK-MB (CK-2) 3.1 ng/mL (0.0-4.0) 12/11/18 08:06 CK-MB (CK-2) Rel Index 7.5 (0-4) H 12/11/18 08:06 0.048 ng/mL (0.00-0.029) H 12/11/18 08:06 NT-Pro-B Natriuret Pep > 35705 pg/mL (0-900) H 12/11/18 08:06 6.5 g/dL (6.3-8.2) 12/12/18 06:58 3.5 g/dL (3.9-5) L 12/12/18 06:58 1.2 % 12/12/18 06:58 Triglycerides 67 mg/dL (2-149) 12/11/18 08:06 Cholesterol 151 mg/dL (50-199) 12/11/18 08:06 67 mg/dL (50-130) 12/11/18 08:06 77 mg/dL (40-59) H 12/11/18 08:06 1.96 % 12/11/18 08:06 Vitamin B12 686.2 pg/mL (211-911) 12/12/18 06:58 TSH 1.010 mlU/mL (0.270-4.200) 12/11/18 08:06 Free T4 1.55 ng/dL (0.76-1.46) H 12/11/18 08:06 Yellow (Yellow) 12/11/18 12:59 Slightly-cloudy (Clear) 12/11/18 12:59 5.0 (5.0-7.0) 12/11/18 12:59 Ur Specific [place] 1.015 (1.003-1.030) 12/11/18 12:59 30 mg/dl mg/dL (Negative) 12/11/18 12:59 Neg mg/dL (Negative) 12/11/18 12:59 Neg mg/dL (Negative) 12/11/18 12:59 Neg (Negative) 12/11/18 12:59 Neg (Negative) 12/11/18 12:59 Neg (Negative) 12/11/18 12:59 < 2.0 mg/dL (<2.0) 12/11/18 12:59 Ur Leukocyte Esterase Mod (Negative) 12/11/18 12:59 15.0 /HPF (0.0-6.0) H 12/11/18 12:59 1.0 /HPF (0.0-6.0) 12/11/18 12:59 U Epithel Cells (Auto) 2.0 /HPF (0-13.0) 12/11/18 12:59 Hyaline Casts 1 /LPF 12/11/18 12:59 Few /HPF 12/11/18 12:59 Active Medications - Current Medications Current Medications: Generic Name Dose Route Start Last Admin Trade Name Freq PRN Reason Stop Dose Admin Acetaminophen 650 mg 12/11/18 09:48 Tylenol PO Q4H PRN Pain MILD(1-3)/Fever >100.5/JOAQUIN Albuterol 2.5 mg 12/11/18 09:51 12/12/18 06:18 Proventil IH 2.5 mg Q4HRT PRN Administration Shortness Of Breath Albuterol/Ipratropium 1 ampul 12/11/18 12:00 12/12/18 09:00 Duoneb *Not For Prn Use* IH 1 ampul QIDRT ABDIFATAH Administration Arformoterol Tartrate 15 mcg 12/12/18 08:00 12/12/18 09:00 Brovana Nebu IH 15 mcg Q12HRT ABDIFATAH Administration Budesonide 0.5 mg 12/12/18 08:00 12/12/18 09:00 Pulmicort IH 0.5 mg Q12HRT ABD[facility]ATAH Administration Diltiazem HCl 240 mg 12/12/18 10:00 Cardizem Cd PO QDAY [facility] Doxazosin Mesylate 1 mg 12/12/18 22:00 Cardura PO QHS [facility]BD[facility]ATA[facility] Enoxaparin Sodium 30 mg 12/11/18 10:00 12/12/18 09:51 Lovenox SUB-Q 30 mg QDAY [facility] Administration Furosemide 40 mg 12/12/18 18:00 Lasix IV 0600,1800 [facility] Azithromycin 500 mg/ Sodium 250 mls @ 250 mls/hr 12/11/18 10:00 12/12/18 09:50 Chloride IV 250 mls/hr Q24HR [facility] Administration Ceftriaxone Sodium 2 gm in 100 mls @ 200 mls/hr 12/11/18 10:00 12/11/18 14:59 Rocephin/Ns 2 Gm/100 Ml IV 200 mls/hr Q24HR ABD[facility]ATA[facility] Administration Protocol Insulin Human Lispro 0 unit 12/12/18 07:30 Humalog SUB-Q ACHS ABD[facility] Protocol Methylprednisolone Sodium Succinate 125 mg 12/11/18 10:00 12/12/18 05:42 Solu-Medrol IV 125 mg Q8HR ABDIFATAH Administration Ondansetron HCl 4 mg 12/11/18 09:48 Zofran IV Q8H PRN Nausea And Vomiting Potassium Chloride 20 meq 12/12/18 10:00 12/12/18 09:52 K-Dur PO 20 meq Q12HR ABDIFATAH Administration Sodium Chloride 10 ml 12/11/18 10:00 12/11/18 22:31 Sodium Chloride Flush Syringe 10 Ml IV 10 ml BID ABDIFATAH Administration Sodium Chloride 10 ml 12/11/18 09:48 Sodium Chloride Flush Syringe 10 Ml IV PRN PRN LINE FLUSH
--- NOTE | 2018-12-12 11:24 | Consultation ---
History of Present Illness - Reason for Consult Consult date: 12/12/18 acute renal failure - History of Present Illness The patient is an 78 YO female with history significant for Hypertension, MAT and COPD on home oxygen who presented to [facility] with shortness of breath and wheezing for the past 10 days. Her symptoms are worse for the past few days. She also reports decreased appetite and poor PO intake. Patient denies any N, V, D, abd pain, dysuria, hematuria, dizziness, leg swelling, cp or syncope. Initial labs showed creatinine at 1.9 and Hb 8.4. Chest x-ray reports emphysematous changes. Patient was admitted with COPD exacerbation and ROSITA. Her creatinine was normal about 2 years ago. Nephrology was consulted for further evaluation. Past History Past Medical History: COPD, hypertension Medications and Allergies Allergies Allergy/AdvReac Type Severity Reaction Status Date / Time Penicillins AdvReac Unknown Verified 12/11/18 09:40 Home Medications Medication Instructions Recorded Confirmed Last Taken Type ALBUTEROL Inhaler (OR & NICU) 1 puff IH Q4H PRN 12/11/18 12/11/18 Unknown History [Proair] Doxazosin [Cardura] 1 mg PO QHS 12/11/18 12/11/18 Unknown History Fluticasone/Salmeterol [Advair 1 puff IH BID 12/11/18 12/11/18 Unknown History Diskus 250-50 mcg] dilTIAZem CD [Cardizem Cd] 240 mg PO QDAY 12/11/18 12/11/18 Unknown History prednisoLONE [Millipred] 10 mg PO Q2D 12/11/18 12/11/18 Unknown History Active Meds: Active Medications Acetaminophen (Tylenol) 650 mg PO Q4H PRN PRN Reason: Pain MILD(1-3)/Fever >100.5/JOAQUIN Albuterol (Proventil) 2.5 mg IH Q4HRT PRN PRN Reason: Shortness Of Breath Last Admin: 12/12/18 06:18 Dose: 2.5 mg Documented by: Albuterol/Ipratropium (Duoneb *Not For Prn Use*) 1 ampul IH QIDRT [facility] Last Admin: 12/12/18 09:00 Dose: 1 ampul Documented by: Arformoterol Tartrate (Brovana Nebu) 15 mcg IH Q12HRT [facility] Last Admin: 12/12/18 09:00 Dose: 15 mcg Documented by: Budesonide (Pulmicort) 0.5 mg IH Q12HRT [facility] Last Admin: 12/12/18 09:00 Dose: 0.5 mg Documented by: Diltiazem HCl (Cardizem Cd) 240 mg PO QDAY [facility] Doxazosin Mesylate (Cardura) 1 mg PO QHS [facility] Enoxaparin Sodium (Lovenox) 30 mg SUB-Q QDAY [facility] Last Admin: 12/12/18 09:51 Dose: 30 mg Documented by: Furosemide (Lasix) 40 mg IV 0600,1800 [facility] Azithromycin 500 mg/ Sodium (Chloride) 250 mls @ 250 mls/hr IV Q24HR [facility] Last Admin: 12/12/18 09:50 Dose: 250 mls/hr Documented by: Ceftriaxone Sodium (Rocephin/Ns 2 Gm/100 Ml) 2 gm in 100 mls @ 200 mls/hr IV Q24HR [facility]; Protocol Last Admin: 12/11/18 14:59 Dose: 200 mls/hr Documented by: Insulin Human Lispro (Humalog) 0 unit SUB-Q ACHS [facility]; Protocol Methylprednisolone Sodium Succinate (Solu-Medrol) 125 mg IV Q8HR [facility] Last Admin: 12/12/18 05:42 Dose: 125 mg Documented by: Ondansetron HCl (Zofran) 4 mg IV Q8H PRN PRN Reason: Nausea And Vomiting Potassium Chloride (K-Dur) 20 meq PO Q12HR [facility] Last Admin: 12/12/18 09:52 Dose: 20 meq Documented by: Sodium Chloride (Sodium Chloride Flush Syringe 10 Ml) 10 ml IV BID [facility] Last Admin: 12/11/18 22:31 Dose: 10 ml Documented by: Sodium Chloride (Sodium Chloride Flush Syringe 10 Ml) 10 ml IV PRN PRN PRN Reason: LINE FLUSH Review of Systems Constitutional: weight loss, sweats, night sweats, anorexia, weakness, poor appetite, no weight gain, no fever, no chills Breasts: deferred Cardiovascular: dyspnea on exertion, high blood pressure, no chest pain, no orthopnea, no edema, no syncope, no lightheadedness, no shortness of breath, no leg edema Respiratory: cough, shortness of breath, dyspnea on exertion, home oxygen, no hemoptysis Gastrointestinal: no abdominal pain, no nausea, no vomiting, no diarrhea, no h ematemesis, no melena, no hematochezia Genitourinary Female: no dysuria, no hematuria, no kidney stones Rectal: no bleeding Musculoskeletal: no prior amputations Integumentary: no rash, no wounds, no jaundice Neurological: no paralysis, no weakness, no vertigo, no convulsions, no aphasia, no change in speech, no change in mentation, no confusion, no memory loss Psychiatric: no memory loss Exam - Vital Signs Vital signs: Vital Signs Pulse Ox 97 12/11/18 07:07 - General Appearance General appearance: well-developed, well-nourished, appears stated age, other (mild distress) EENT: ATNC, PERRL, hearing intact, vision intact Neck: Present: neck supple, trachea midline Respiratory: Clear to Ascultation Heart: regular, S1S2, no murmurs Gastrointestinal: Present: normoactive bowel sounds. Absent: tenderness, distended Integumentary: no rash, warm and dry Neurologic: no focal deficit, no asterixis, alert and oriented x3 Musculoskeletal: Present: other (no edema) Psychiatric: cooperative Results - Lab Results 12/11/18 08:06 12/12/18 06:58 Most recent lab results Calcium 8.8 mg/dL (8.4-10.2) 12/12/18 06:58 Phosphorus 6.10 mg/dL (2.5-4.5) H 12/12/18 06:58 Magnesium 2.60 mg/dL (1.7-2.3) H 12/12/18 06:58 - Image Kidney/bladder ultrasound: pending Assessment and Plan 1. Acute kidney injury: Likely vasomotor ROSITA in the setting of volume depletion. Urine studies and Renal US ordered. Start on IV fluids. Monitor renal function. Avoid nephrotoxic agents. Meds dosage based on GFR. 2. FEN: IV fluids. Monitor lytes. 3. Hypoxic respiratory failure: Likely from COPD exacerbation. 4. UTI. 5. Elevated Transaminases. 6. Anemia: POA.
[2018-12-12] MEDS: XANAX PO PRN (11:51)
[2018-12-12] MEDS: HumaLOG SUB-Q SCH ×4 (13:16→22:03)
[2018-12-12] MEDS: ROCEPHIN/NS 2 GM/100 ML 2 GM/100 ML BAG IV SCH (13:20)
[2018-12-12] MEDS ORDERED: LASIX IV SCH (18:00)
[2018-12-12] MEDS: SODIUM CHLORIDE FLUSH SYRINGE 10 ML IV SCH ×2 (18:40→22:03)
[2018-12-12] MEDS: NACL 0.9% 1000 ML 1,000 ML IV SCH (22:01)
[2018-12-12] MEDS: FEOSOL PO SCH (22:02)
[2018-12-12] MEDS: CARDURA PO SCH (22:03)
[2018-12-13] MEDS: XANAX PO PRN ×2 (01:03→12:41)
[2018-12-13] MEDS: PROVENTIL IH PRN (03:51)
[2018-12-13] MEDS: SOLU-Medrol IV SCH ×3 (05:42→20:18)
[2018-12-13 07:11] LABS: Hematocrit 25.6 % (30.3-42.9); Hemoglobin 8.1 gm/dl (10.1-14.3); Mean Corpuscular HGB Conc 32 % (30-34); Mean Corpuscular Volume 75 fl (79-97); Platelet Count 338 K/mm3 (140-440); Red Blood Count 3.42 M/mm3 (3.65-5.03); Red Cell Distribution Width 17.6 % (13.2-15.2)
[2018-12-13 07:37] LABS: Albumin 3.2 g/dL (3.9-5); Calcium 8.5 mg/dL (8.4-10.2)
[2018-12-13] MEDS: BROVANA NEBU IH SCH ×2 (07:44→20:40)
[2018-12-13] MEDS: PULMICORT IH SCH ×2 (07:44→20:40)
[2018-12-13] MEDS: DUONEB *Not for PRN Use IH SCH ×4 (07:44→20:40)
--- NOTE | 2018-12-13 09:06 | Progress Note ---
Assessment and Plan 1. Acute kidney injury: Likely vasomotor ROSITA in the setting of volume depletion. Renal US was negative for hydro. Creatinine level increasing. Continue IV fluids. Monitor renal function. Avoid nephrotoxic agents. Meds dosage based on GFR. 2. FEN: IV fluids. Monitor lytes. 3. Hypoxic respiratory failure: Likely from COPD exacerbation. 4. UTI. 5. Elevated Transaminases. 6. Anemia: POA. D/w her son at the bedside. Subjective Date of service: 12/13/18 Interval history: Patient was seen and examined at the bedside. Continues to have sob. Objective - Vital Signs Vital signs: Vital Signs - 12hr 12/12/18 12/12/18 12/12/18 22:03 22:35 23:22 Temperature 97.8 F Pulse Rate 114 H 110 H Pulse Rate [ Anterior Bilateral Throughout] Pulse Rate [ 114 H Apical] Respiratory 26 H 18 Rate Respiratory Rate [Anterior Bilateral Throughout] Blood Pressure 121/79 128/70 O2 Sat by Pulse 97 94 Oximetry 12/13/18 12/13/18 12/13/18 03:47 03:52 04:00 Temperature 97.8 F Pulse Rate 117 H Pulse Rate [ 111 H Anterior Bilateral Throughout] Pulse Rate [ Apical] Respiratory 22 Rate Respiratory 17 Rate [Anterior Bilateral Throughout] Blood Pressure 129/77 O2 Sat by Pulse 96 Oximetry 12/13/18 12/13/18 12/13/18 04:01 07:44 07:48 Temperature Pulse Rate Pulse Rate [ 108 H 109 H Anterior Bilateral Throughout] Pulse Rate [ Apical] Respiratory Rate Respiratory 17 24 Rate [Anterior Bilateral Throughout] Blood Pressure O2 Sat by Pulse 96 Oximetry 12/13/18 08:17 Temperature Pulse Rate Pulse Rate [ 112 H Anterior Bilateral Throughout] Pulse Rate [ Apical] Respiratory Rate Respiratory 20 Rate [Anterior Bilateral Throughout] Blood Pressure O2 Sat by Pulse Oximetry - General Appearance General appearance: well-developed, appears stated age, other (not in distress) EENT: ATNC, PERRL Neck: supple Respiratory: Present: Clear to Ascultation Cardiology: regular, S1S2, no murmurs Gastrointestinal: normoactive bowel sounds, no tenderness, no distended Integumentary: no rash, warm and dry Neurologic: no focal deficit, no asterixis Musculoskeletal: other (no edema) Psychiatric: cooperative - Lab 12/14/18 05:11 12/14/18 05:11 Most recent lab results Calcium 8.5 mg/dL (8.4-10.2) 12/13/18 04:49 Phosphorus 6.10 mg/dL (2.5-4.5) H 12/12/18 06:58 Magnesium 2.60 mg/dL (1.7-2.3) H 12/12/18 06:58 Medications & Allergies - Medications Allergies/Adverse Reactions: Allergies Penicillins Adverse Reaction (Verified 12/11/18 09:40) Unknown Home Medications: Home Medications Medication Instructions Recorded Confirmed Last Taken Type ALBUTEROL Inhaler (OR & NICU) 1 puff IH Q4H PRN 12/11/18 12/11/18 Unknown History [Proair] Doxazosin [Cardura] 1 mg PO QHS 12/11/18 12/11/18 Unknown History Fluticasone/Salmeterol [Advair 1 puff IH BID 12/11/18 12/11/18 Unknown History Diskus 250-50 mcg] dilTIAZem CD [Cardizem Cd] 240 mg PO QDAY 12/11/18 12/11/18 Unknown History prednisoLONE [Millipred] 10 mg PO Q2D 12/11/18 12/11/18 Unknown History Active Medications: Generic Name Dose Route Start Last Admin Trade Name Freq PRN Reason Stop Dose Admin Acetaminophen 650 mg 12/11/18 09:48 Tylenol PO Q4H PRN Pain MILD(1-3)/Fever >100.5/JOAQUIN Albuterol 2.5 mg 12/11/18 09:51 12/13/18 03:51 Proventil IH 2.5 mg Q4HRT PRN Administration Shortness Of Breath Albuterol/Ipratropium 1 ampul 12/11/18 12:00 12/13/18 07:44 Duoneb *Not For Prn Use* IH 1 ampul QIDRT [facility] Administration Alprazolam 0.5 mg 12/12/18 11:29 12/13/18 01:03 Xanax PO 0.5 mg Q8H PRN Administration Anxiety Arformoterol Tartrate 15 mcg 12/12/18 08:00 12/13/18 07:44 Brovana Nebu IH 15 mcg Q12HRT [facility] Administration Budesonide 0.5 mg 12/12/18 08:00 12/13/18 07:44 Pulmicort IH 0.5 mg Q12HRT [facility] Administration Diltiazem HCl 240 mg 12/12/18 10:00 12/12/18 10:00 Cardizem Cd PO 240 mg QDAY [facility] Administration Doxazosin Mesylate 1 mg 12/12/18 22:00 12/12/18 22:03 Cardura PO 1 mg QHS [facility] Administration Enoxaparin Sodium 30 mg 12/11/18 10:00 12/12/18 09:51 Lovenox SUB-Q 30 mg QDAY [facility] Administration Ferrous Sulfate 325 mg 12/12/18 22:00 12/12/18 22:02 Feosol PO 325 mg BID [facility] Administration Azithromycin 500 mg/ Sodium 250 mls @ 250 mls/hr 12/11/18 10:00 12/12/18 09:50 Chloride IV 250 mls/hr Q24HR [facility] Administration Ceftriaxone Sodium 2 gm in 100 mls @ 200 mls/hr 12/11/18 10:00 12/12/18 13:20 Rocephin/Ns 2 Gm/100 Ml IV 200 mls/hr Q24HR [facility] Administration Protocol Sodium Chloride 1,000 mls @ 50 mls/hr 12/12/18 12:00 12/12/18 22:01 Nacl 0.9% 1000 Ml IV 50 mls/hr DIRECT [facility] Administration Insulin Human Lispro 0 unit 12/12/18 07:30 12/12/18 22:03 Humalog SUB-Q 3 unit ACHS [facility] Administration Protocol Loratadine/Pseudoephedrine Sulfate 1 each 12/13/18 10:00 Claritin-D 24hr PO Q24HR [facility] Methylprednisolone Sodium Succinate 60 mg 12/12/18 11:30 12/13/18 05:42 Solu-Medrol IV 60 mg Q8HR [facility] Administration Ondansetron HCl 4 mg 12/11/18 09:48 Zofran IV Q8H PRN Nausea And Vomiting Sodium Chloride 10 ml 12/11/18 10:00 12/12/18 22:03 Sodium Chloride Flush Syringe 10 Ml IV 10 ml BID [facility]BDIFTAA[facility] Administration Sodium Chloride 10 ml 12/11/18 09:48 Sodium Chloride Flush Syringe 10 Ml IV PRN PRN LINE FLUSH
--- NOTE | 2018-12-13 09:19 | Progress Note ---
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 followed by vascular as an outpatient Recommend: Pulmonary follow-up and management of her shortness of breath, chronic lung disease and pulmonary infection. Otherwise, conservative cardiac management. Subjective Date of service: 12/13/18 Interval history: Still short of breath with active wheezing. Objective Vital Signs Temp Pulse Pulse Pulse Resp Resp BP 12/13/18 08:17 112 H 20 12/13/18 07:48 12/13/18 07:44 109 H 24 12/13/18 04:01 108 H 17 12/13/18 04:00 117 H 12/13/18 03:52 111 H 17 12/13/18 03:47 97.8 F 22 129/77 12/12/18 23:22 97.8 F 110 H 18 128/70 12/12/18 22:35 114 H 26 H 12/12/18 22:03 114 H 121/79 12/12/18 20:37 116 H 25 H 12/12/18 20:29 12/12/18 20:27 114 H 21 12/12/18 20:00 111 H 12/12/18 19:27 97.7 F 114 H 19 121/79 12/12/18 15:13 122 H 26 H 12/12/18 15:08 97.2 F L 18 140/84 12/12/18 15:05 128 H 25 H 12/12/18 12:00 110 H 14 12/12/18 11:43 114 H 16 12/12/18 11:42 110 H 18 12/12/18 10:00 75 26 H 142/82 Pulse Ox 12/13/18 08:17 12/13/18 07:48 96 12/13/18 07:44 12/13/18 04:01 12/13/18 04:00 96 12/13/18 03:52 12/13/18 03:47 12/12/18 23:22 94 12/12/18 22:35 97 12/12/18 22:03 12/12/18 20:37 12/12/18 20:29 97 12/12/18 20:27 12/12/18 20:00 12/12/18 19:27 97 12/12/18 15:13 12/12/18 15:08 12/12/18 15:05 12/12/18 12:00 12/12/18 11:43 12/12/18 11:42 12/12/18 10:00 98 - Physical Examination General: No Apparent Distress HEENT: Positive: PERRL Neck: Positive: neck supple, trachea midline Cardiac: Positive: Tachycardia Lungs: Positive: Decreased Breath Sounds, Wheezes Neuro: Positive: Grossly Intact Extremities: Absent: edema - Labs and Meds Cardiac Enzymes 12/12/18 12/13/18 Range/Units 06:58 04:49 AST 72 H 48 H (5-40) units/L CBC 12/13/18 Range/Units 04:49 WBC 11.5 H (4.5-11.0) K/mm3 RBC 3.42 L (3.65-5.03) M/mm3 Hgb 8.1 L (10.1-14.3) gm/dl Hct 25.6 L (30.3-42.9) % Plt Count 338 (140-440) K/mm3 Comprehensive Metabolic Panel 12/12/18 12/13/18 Range/Units 06:58 04:49 Sodium 141 141 (137-145) mmol/L Potassium 5.0 D 4.6 (3.6-5.0) mmol/L Chloride 101.0 99.4 (98-107) mmol/L Carbon Dioxide 24 23 (22-30) mmol/L BUN 38 H 53 H (7-17) mg/dL Creatinine 2.0 H 2.3 H (0.7-1.2) mg/dL Glucose 224 H 198 H (65-100) mg/dL Calcium 8.8 8.5 (8.4-10.2) mg/dL AST 72 H 48 H (5-40) units/L ALT 99 H 88 H (7-56) units/L Alkaline Phosphatase 118 104 (35-129) units/L Total Protein 6.5 6.3 (6.3-8.2) g/dL Albumin 3.5 L 3.2 L (3.9-5) g/dL
[2018-12-13] MEDS: FEOSOL PO SCH ×2 (09:50→23:21)
[2018-12-13] MEDS: ROCEPHIN/NS 2 GM/100 ML 2 GM/100 ML BAG IV SCH (09:50)
[2018-12-13] MEDS: CARDIZEM CD PO SCH (09:50)
[2018-12-13] MEDS: SODIUM CHLORIDE FLUSH SYRINGE 10 ML IV SCH ×2 (09:51→23:22)
[2018-12-13] MEDS: LOVENOX SUB-Q SCH (09:51)
[2018-12-13] MEDS: HumaLOG SUB-Q SCH ×4 (09:59→23:22)
[2018-12-13] MEDS: ZITHROMAX 500 MG in NACL 0.9% 250ML 250 ML IV SCH (10:00)
[2018-12-13] MEDS: CLARITIN-D 24HR PO SCH (10:33)
[2018-12-13 10:37] LABS: Anisocytosis 1+; Basophils % (Manual) 0 % (0.0-1.8); Eosinophils % (Manual) 0 % (0.0-4.3); Hypochromasia 1+; Ovalocytes Few; Platelet Estimate Consistent w Auto; Poikilocytosis 1+; Total Cells Counted 100
--- NOTE | 2018-12-13 11:56 | Progress Note ---
Assessment and Plan Assessment and plan: --Acute hypoxic respiratory failure; secondary to COPD exacerbation Patient is in no acute distress today, son is at the bedside --Acute exacerbation of COPD; Home oxygen dependent, oxygen O2 sats more than 90%, nebulizers IV steroids, IV antibiotics, pulmonary consultation Name and--Type 2 diabetes mellitus; Accu-Chek sliding scale coverage and ADA diet Insulin as needed, hemoglobin A1c 5.7, diabetic diet --Elevated BNP; normal echocardiogram, ejection fraction normal Cardiology evaluated the patient, no evidence of congestive heart --Acute kidney injury; secondary to ATN Closely monitor renal function, avoid nephrotoxins, nephrology following --History of iron deficiency anemia; closely monitor H&H Transfuse as needed, iron supplements --History of GI bleed in the past; closely monitor --Mild malnutrition. Albumin 3.1-3.5, Supportive care --DVT prophylaxis; Lovenox renal dose Patient is critically ill, unable to complete sentences Using accessory muscles Since critical condition and poor prognosis discussed in detail with the patient and son at the bedside And explained that if patient respiratory status does not improve, patient may need to be intubated And placed on ventilatory support and transferred to ICU for close monitoring. The patient and her son at the bedside informed me that patient is DO NOT RESUSCITATE status Do not want intubation or CPR, Signed the necessary papers Patient is DO NOT RESUSCITATE. We'll request hospice evaluation Continue all the current management History Interval history: Patient seen and examined medical records reviewed Patient is in acute respiratory distress, on nasal cannula oxygen Saturating 94-95% Responding appropriately Vital signs reviewed Hospitalist Physical - Constitutional Vitals: Temp Pulse Resp BP Pulse Ox 97.5 F L 103 H 22 127/73 99 12/13/18 08:39 12/13/18 11:47 12/13/18 11:47 12/13/18 09:50 12/13/18 11:38 General appearance: Present: mild distress, cachectic, disheveled - EENT Eyes: Present: PERRL, EOM intact - Neck Neck: Present: supple, normal ROM - Respiratory Respiratory effort: labored Respiratory: bilateral: diminished, rhonchi, wheezing, negative: rales - Cardiovascular Rhythm: regular Heart Sounds: Present: S1 & S2 - Extremities Extremities: no ischemia, No edema - Abdominal General gastrointestinal: soft, non-tender, non-distended, normal bowel sounds - Integumentary Integumentary: Present: clear, warm - Psychiatric Psychiatric: appropriate mood/affect, cooperative, other (in distress) - Neurologic Neurologic: moves all extremities Results - Labs CBC & Chem 7: 12/13/18 04:49 12/13/18 04:49 Labs: Laboratory Last Values WBC 11.5 K/mm3 (4.5-11.0) H 12/13/18 04:49 RBC 3.42 M/mm3 (3.65-5.03) L 12/13/18 04:49 Hgb 8.1 gm/dl (10.1-14.3) L 12/13/18 04:49 Hct 25.6 % (30.3-42.9) L 12/13/18 04:49 MCV 75 fl (79-97) L 12/13/18 04:49 MCH 24 pg (28-32) L 12/13/18 04:49 MCHC 32 % (30-34) 12/13/18 04:49 RDW 17.6 % (13.2-15.2) H 12/13/18 04:49 Plt Count 338 K/mm3 (140-440) 12/13/18 04:49 Lymph % (Auto) 5.9 % (13.4-35.0) L 12/11/18 08:06 [place] % (Auto) 5.4 % (0.0-7.3) 12/11/18 08:06 Eos % (Auto) 0.2 % (0.0-4.3) 12/11/18 08:06 Baso % (Auto) 0.2 % (0.0-1.8) 12/11/18 08:06 Lymph # 0.6 K/mm3 (1.2-5.4) L 12/11/18 08:06 [place] # 0.6 K/mm3 (0.0-0.8) 12/11/18 08:06 Eos # 0.0 K/mm3 (0.0-0.4) 12/11/18 08:06 Baso # 0.0 K/mm3 (0.0-0.1) 12/11/18 08:06 Add Manual Diff Complete 12/13/18 04:49 Total Counted 100 12/13/18 04:49 Seg Neutrophils % 88.3 % (40.0-70.0) H 12/11/18 08:06 Seg Neuts % (Manual) 95.0 % (40.0-70.0) H 12/13/18 04:49 0 % 12/13/18 04:49 2.0 % (13.4-35.0) L 12/13/18 04:49 Reactive Lymphs % (Man) 0 % 12/13/18 04:49 2.0 % (0.0-7.3) 12/13/18 04:49 0 % (0.0-4.3) 12/13/18 04:49 0 % (0.0-1.8) 12/13/18 04:49 1.0 % 12/13/18 04:49 0 % 12/13/18 04:49 0 % 12/13/18 04:49 0 % 12/13/18 04:49 Nucleated RBC % Not Reportable 12/13/18 04:49 Seg Neutrophils # 9.5 K/mm3 (1.8-7.7) H 12/11/18 08:06 Seg Neutrophils # Man 10.9 K/mm3 (1.8-7.7) H 12/13/18 04:49 Band Neutrophils # 0.0 K/mm3 12/13/18 04:49 0.2 K/mm3 (1.2-5.4) L 12/13/18 04:49 Abs React Lymphs (Man) 0.0 K/mm3 12/13/18 04:49 0.2 K/mm3 (0.0-0.8) 12/13/18 04:49 0.0 K/mm3 (0.0-0.4) 12/13/18 04:49 0.0 K/mm3 (0.0-0.1) 12/13/18 04:49 0.1 K/mm3 12/13/18 04:49 0.0 K/mm3 12/13/18 04:49 0.0 K/mm3 12/13/18 04:49 Blast Cells # 0.0 K/mm3 12/13/18 04:49 WBC Morphology Not Reportable 12/13/18 04:49 Hypersegmented Neuts Not Reportable 12/13/18 04:49 Hyposegmented Neuts Not Reportable 12/13/18 04:49 Hypogranular Neuts Not Reportable 12/13/18 04:49 Not Reportable 12/13/18 04:49 Not Reportable 12/13/18 04:49 Not Reportable 12/13/18 04:49 Not Reportable 12/13/18 04:49 Not Reportable 12/13/18 04:49 Not Reportable 12/13/18 04:49 Consistent w auto 12/13/18 04:49 Not Reportable 12/13/18 04:49 Plt Clumps, EDTA Not Reportable 12/13/18 04:49 Not Reportable 12/13/18 04:49 Not Reportable 12/13/18 04:49 Not Reportable 12/13/18 04:49 Plt Morphology Comment Not Reportable 12/13/18 04:49 RBC Morphology Not Reportable 12/13/18 04:49 Dimorphic RBCs Not Reportable 12/13/18 04:49 Not Reportable 12/13/18 04:49 1+ 12/13/18 04:49 1+ 12/13/18 04:49 1+ 12/13/18 04:49 Not Reportable 12/13/18 04:49 Not Reportable 12/13/18 04:49 Not Reportable 12/13/18 04:49 Not Reportable 12/13/18 04:49 Not Reportable 12/13/18 04:49 Not Reportable 12/13/18 04:49 Not Reportable 12/13/18 04:49 Few 12/13/18 04:49 Not Reportable 12/13/18 04:49 Not Reportable 12/13/18 04:49 Not Reportable 12/13/18 04:49 Not Reportable 12/13/18 04:49 Not Reportable 12/13/18 04:49 Not Reportable 12/13/18 04:49 Few 12/13/18 04:49 Acanthocytes (Spur) Not Reportable 12/13/18 04:49 Rouleaux Not Reportable 12/13/18 04:49 Not Reportable 12/13/18 04:49 Not Reportable 12/13/18 04:49 Not Reportable 12/13/18 04:49 Not Reportable 12/13/18 04:49 Hem Pathologist Commnt No 12/13/18 04:49 PT 16.6 Sec. (12.2-14.9) H 12/11/18 08:06 INR 1.26 (0.87-1.13) H 12/11/18 08:06 APTT 33.1 Sec. (24.2-36.6) 12/11/18 08:06 Sodium 141 mmol/L (137-145) 12/13/18 04:49 Potassium 4.6 mmol/L (3.6-5.0) 12/13/18 04:49 Chloride 99.4 mmol/L (98-107) 12/13/18 04:49 Carbon Dioxide 23 mmol/L (22-30) 12/13/18 04:49 23 mmol/L 12/13/18 04:49 BUN 53 mg/dL (7-17) H 12/13/18 04:49 2.3 mg/dL (0.7-1.2) H 12/13/18 04:49 Estimated GFR 20 ml/min 12/13/18 04:49 23 % 12/13/18 04:49 Glucose 198 mg/dL (65-100) H 12/13/18 04:49 POC Glucose 213 (70-105) H 12/13/18 07:53 5.7 % (4-6) 12/11/18 08:06 Lactic Acid 1.50 mmol/L (0.7-2.0) 12/11/18 08:06 Calcium 8.5 mg/dL (8.4-10.2) 12/13/18 04:49 Phosphorus 6.10 mg/dL (2.5-4.5) H 12/12/18 06:58 Magnesium 2.60 mg/dL (1.7-2.3) H 12/12/18 06:58 Iron 14 ug/dL (37-170) L 12/12/18 06:58 TIBC 269 mcg/dL (250-450) 12/12/18 06:58 % Saturation 5.20 % 12/12/18 06:58 235 mg/dl (192-382) 12/12/18 06:58 0.20 mg/dL (0.1-1.2) 12/13/18 04:49 < 0.2 mg/dL (0-0.2) 12/11/18 08:06 0.1 mg/dL 12/11/18 08:06 AST 48 units/L (5-40) H 12/13/18 04:49 ALT 88 units/L (7-56) H 12/13/18 04:49 104 units/L (35-129) 12/13/18 04:49 41 units/L (30-135) 12/11/18 08:06 CK-MB (CK-2) 3.1 ng/mL (0.0-4.0) 12/11/18 08:06 CK-MB (CK-2) Rel Index 7.5 (0-4) H 12/11/18 08:06 0.048 ng/mL (0.00-0.029) H 12/11/18 08:06 NT-Pro-B Natriuret Pep > 04863 pg/mL (0-900) H 12/11/18 08:06 6.3 g/dL (6.3-8.2) 12/13/18 04:49 3.2 g/dL (3.9-5) L 12/13/18 04:49 1.0 % 12/13/18 04:49 Triglycerides 67 mg/dL (2-149) 12/11/18 08:06 Cholesterol 151 mg/dL (50-199) 12/11/18 08:06 67 mg/dL (50-130) 12/11/18 08:06 77 mg/dL (40-59) H 12/11/18 08:06 1.96 % 12/11/18 08:06 Vitamin B12 686.2 pg/mL (211-911) 12/12/18 06:58 TSH 1.010 mlU/mL (0.270-4.200) 12/11/18 08:06 Free T4 1.55 ng/dL (0.76-1.46) H 12/11/18 08:06 Yellow (Yellow) 12/11/18 12:59 Slightly-cloudy (Clear) 12/11/18 12:59 5.0 (5.0-7.0) 12/11/18 12:59 Ur Specific [place] 1.015 (1.003-1.030) 12/11/18 12:59 30 mg/dl mg/dL (Negative) 12/11/18 12:59 Neg mg/dL (Negative) 12/11/18 12:59 Neg mg/dL (Negative) 12/11/18 12:59 Neg (Negative) 12/11/18 12:59 Neg (Negative) 12/11/18 12:59 Neg (Negative) 12/11/18 12:59 < 2.0 mg/dL (<2.0) 12/11/18 12:59 Ur Leukocyte Esterase Mod (Negative) 12/11/18 12:59 15.0 /HPF (0.0-6.0) H 12/11/18 12:59 1.0 /HPF (0.0-6.0) 12/11/18 12:59 U Epithel Cells (Auto) 2.0 /HPF (0-13.0) 12/11/18 12:59 Hyaline Casts 1 /LPF 12/11/18 12:59 Few /HPF 12/11/18 12:59 Active Medications - Current Medications Current Medications: Generic Name Dose Route Start Last Admin Trade Name Freq PRN Reason Stop Dose Admin Acetaminophen 650 mg 12/11/18 09:48 Tylenol PO Q4H PRN Pain MILD(1-3)/Fever >100.5/JOAQUIN Albuterol 2.5 mg 12/11/18 09:51 12/13/18 03:51 Proventil IH 2.5 mg Q4HRT PRN Administration Shortness Of Breath Albuterol/Ipratropium 1 ampul 12/11/18 12:00 12/13/18 11:34 Duoneb *Not For Prn Use* IH 1 ampul QIDRT ABDIFATAH Administration Alprazolam 0.5 mg 12/12/18 11:29 12/13/18 01:03 Xanax PO 0.5 mg Q8H PRN Administration Anxiety Arformoterol Tartrate 15 mcg 12/12/18 08:00 12/13/18 07:44 Brovana Nebu IH 15 mcg Q12HRT ABDIFATAH Administration Budesonide 0.5 mg 12/12/18 08:00 12/13/18 07:44 Pulmicort IH 0.5 mg Q12HRT ABDIFATAH Administration Diltiazem HCl 240 mg 12/12/18 10:00 12/13/18 09:50 Cardizem Cd PO 240 mg QDAY ABDIFATAH Administration Doxazosin Mesylate 1 mg 12/12/18 22:00 12/12/18 22:03 Cardura PO 1 mg QHS ABDIFATAH Administration Enoxaparin Sodium 30 mg 12/11/18 10:00 12/13/18 09:51 Lovenox SUB-Q 30 mg QDAY ABDIFATAH Administration Ferrous Sulfate 325 mg 12/12/18 22:00 12/13/18 09:50 Feosol PO 325 mg BID ABDIFATAH Administration Azithromycin 500 mg/ Sodium 250 mls @ 250 mls/hr 12/11/18 10:00 12/13/18 10:00 Chloride IV 250 mls/hr Q24HR ABDIFATAH Administration Ceftriaxone Sodium 2 gm in 100 mls @ 200 mls/hr 12/11/18 10:00 12/13/18 09:50 Rocephin/Ns 2 Gm/100 Ml IV 200 mls/hr Q24HR ABDIFATAH Administration Protocol Sodium Chloride 1,000 mls @ 50 mls/hr 12/12/18 12:00 12/12/18 22:01 Nacl 0.9% 1000 Ml IV 50 mls/hr DIRECT ABDIFATAH Administration Insulin Human Lispro 0 unit 12/12/18 07:30 12/13/18 09:59 Humalog SUB-Q 3 unit ACHS ABDIFATAH Administration Protocol Loratadine/Pseudoephedrine Sulfate 1 each 12/13/18 10:00 12/13/18 10:33 Claritin-D 24hr PO 1 each Q24HR ABDIFATAH Administration Methylprednisolone Sodium Succinate 60 mg 12/12/18 11:30 12/13/18 05:42 Solu-Medrol IV 60 mg Q8HR ABDIFATAH Administration Ondansetron HCl 4 mg 12/11/18 09:48 Zofran IV Q8H PRN Nausea And Vomiting Sodium Chloride 10 ml 12/11/18 10:00 12/13/18 09:51 Sodium Chloride Flush Syringe 10 Ml IV 10 ml BID ABDIFATAH Administration Sodium Chloride 10 ml 12/11/18 09:48 Sodium Chloride Flush Syringe 10 Ml IV PRN PRN LINE FLUSH Nutrition/Malnutrition Assess - Dietary Evaluation Nutrition/Malnutrition Findings: Nutrition Notes Start: 12/12/18 16:00 Freq: Status: Active Protocol: Document 12/12/18 16:00 RM (Rec: 12/12/18 16:08 RM [email or web address]) Nutrition Notes Need for Assessment generated from: MD Order Initial or Follow up Assessment Current Diagnosis Acute Kidney Injury,COPD, Diabetes,Hypertension Other Pertinent Diagnosis UTI, Sacral PU Current Diet Cardiac Labs/Tests Reviewed Pertinent Medications Solu-Medrol Height 5 ft 6 in Weight 61.7 kg Usual Body Weight 62.73 kg [place] Body Weight (kg) 59.09 BMI 21.9 Subjective/Other Information Consulted for nutrition recommendation. Screened for malnutrition risk and skin risk. Pt and pt son in room at time of visit. Pt son answered most of questions on behalf of pt. Stated that [employer] pt appetite was poor and that she ate 3 small meals daily e.g: half cup of cereal, pb&j sandwich, fortify ONS, etc. Stated that pt ate half of her breakfast today. Admitted to pt tiring when chewing food. Stated UBW was 136-140 lbs 3 months ago. Noted temporal wasting. 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 No Is Patient Ambulatory and/or Out of Bed Yes REE-([facility]-ambulatory/OOB) [ 1434.875 [id number]] Calculation Used for Recommendations [facility] Additional Notes Protein Needs: 74-93g (1.2-1. 5g/kg) Fluid needs: 1 ml/kcal Nutrition Intervention Change Diet Order: Cardiac,Consistent CHO, Mech soft w/ground meat Add Supplement/Snack (indicate name/kcal Glucerna 1 daily /protein ) Provides kCal: 220 Provides Protein (gm) 10 Goal #1 Meet at least 75% of calorie and protein needs via PO and ONS intakes Anticipated Discharge Needs: Cardiac/Consistent CHO diet Follow-Up By: 12/19/18 Additional Comments Follow for PO and ONS intakes
--- NOTE | 2018-12-13 12:30 | Consultation ---
History of Present Illness Consult date: 12/13/18 Requesting physician: PAWEL PARIKH Reason for consult: COPD History of present illness: 78 y/o female admitted with shortness of breath. Concern for heart failure initially so cardiology was consulted. Per report, complains of shortness of breath for 1 month but worse in the 24 hours prior to admission. Had green sputum production. Apparently had seen Dr. Marroquin one week prior to admission and finished a course of abx therapy but had no improvement. Called by IMS today to see patient as her breathing is not improving. Per IMS patient is a DNR/DNI but listed in computer as full code. BNP was >35k on admission. Patient well known to me from her previous admission to [facility]. She has had a significant clinical decline since i last saw her. Past History Past Medical History: COPD, hypertension, other (pulmonary fibrosis) Medications and Allergies Allergies Allergy/AdvReac Type Severity Reaction Status Date / Time Penicillins AdvReac Unknown Verified 12/11/18 09:40 Home Medications Medication Instructions Recorded Confirmed Last Taken Type ALBUTEROL Inhaler (OR & NICU) 1 puff IH Q4H PRN 12/11/18 12/11/18 Unknown History [Proair] Doxazosin [Cardura] 1 mg PO QHS 12/11/18 12/11/18 Unknown History Fluticasone/Salmeterol [Advair 1 puff IH BID 12/11/18 12/11/18 Unknown History Diskus 250-50 mcg] dilTIAZem CD [Cardizem Cd] 240 mg PO QDAY 12/11/18 12/11/18 Unknown History prednisoLONE [Millipred] 10 mg PO Q2D 12/11/18 12/11/18 Unknown History Active Meds: Active Medications Acetaminophen (Tylenol) 650 mg PO Q4H PRN PRN Reason: Pain MILD(1-3)/Fever >100.5/JOAQUIN Albuterol (Proventil) 2.5 mg IH Q4HRT PRN PRN Reason: Shortness Of Breath Last Admin: 12/13/18 03:51 Dose: 2.5 mg Documented by: Albuterol/Ipratropium (Duoneb *Not For Prn Use*) 1 ampul IH QIDRT ABDIFATAH Last Admin: 12/13/18 11:34 Dose: 1 ampul Documented by: Alprazolam (Xanax) 0.5 mg PO Q8H PRN PRN Reason: Anxiety Last Admin: 12/13/18 01:03 Dose: 0.5 mg Documented by: Arformoterol Tartrate (Brovana Nebu) 15 mcg IH Q12HRT [facility] Last Admin: 12/13/18 07:44 Dose: 15 mcg Documented by: Budesonide (Pulmicort) 0.5 mg IH Q12HRT [facility] Last Admin: 12/13/18 07:44 Dose: 0.5 mg Documented by: Diltiazem HCl (Cardizem Cd) 240 mg PO QDAY [facility] Last Admin: 12/13/18 09:50 Dose: 240 mg Documented by: Doxazosin Mesylate (Cardura) 1 mg PO QHS [facility] Last Admin: 12/12/18 22:03 Dose: 1 mg Documented by: Enoxaparin Sodium (Lovenox) 30 mg SUB-Q QDAY [facility] Last Admin: 12/13/18 09:51 Dose: 30 mg Documented by: Ferrous Sulfate (Feosol) 325 mg PO BID [facility] Last Admin: 12/13/18 09:50 Dose: 325 mg Documented by: Azithromycin 500 mg/ Sodium (Chloride) 250 mls @ 250 mls/hr IV Q24HR [facility] Last Admin: 12/13/18 10:00 Dose: 250 mls/hr Documented by: Ceftriaxone Sodium (Rocephin/Ns 2 Gm/100 Ml) 2 gm in 100 mls @ 200 mls/hr IV Q24HR [facility]; Protocol Last Admin: 12/13/18 09:50 Dose: 200 mls/hr Documented by: Sodium Chloride (Nacl 0.9% 1000 Ml) 1,000 mls @ 50 mls/hr IV DIRECT [facility] Last Admin: 12/12/18 22:01 Dose: 50 mls/hr Documented by: Insulin Human Lispro (Humalog) 0 unit SUB-Q ACHS [facility]; Protocol Last Admin: 12/13/18 09:59 Dose: 3 unit Documented by: Loratadine/Pseudoephedrine Sulfate (Claritin-D 24hr) 1 each PO Q24HR [facility] Last Admin: 12/13/18 10:33 Dose: 1 each Documented by: Methylprednisolone Sodium Succinate (Solu-Medrol) 60 mg IV Q8HR [facility] Last Admin: 12/13/18 05:42 Dose: 60 mg Documented by: Ondansetron HCl (Zofran) 4 mg IV Q8H PRN PRN Reason: Nausea And Vomiting Sodium Chloride (Sodium Chloride Flush Syringe 10 Ml) 10 ml IV BID ABDIFATAH Last Admin: 12/13/18 09:51 Dose: 10 ml Documented by: Sodium Chloride (Sodium Chloride Flush Syringe 10 Ml) 10 ml IV PRN PRN PRN Reason: LINE FLUSH Review of Systems Constitutional: weight loss, fever, night sweats, anorexia, poor appetite Physical Examination Vital signs: Vital Signs Pulse Ox 97 12/11/18 07:07 General appearance: asleep, appears uncomfortable Eyes: non-icteric ENT: oropharynx moist Neck: supple Effort: mildly labored Ascultation: Bilateral: rales Percussion: Bilateral: not dull Tactile fremitus: Bilateral: normal Cardiovascular: regular rate and rhythm Gastrointestinal: soft, non-tender Results - Laboratory Findings CBC and BMP: 12/13/18 04:49 12/13/18 04:49 PT/INR, D-dimer PT 16.6 Sec. (12.2-14.9) H 12/11/18 08:06 INR 1.26 (0.87-1.13) H 12/11/18 08:06 Abnormal lab findings: Abnormal Labs 12/11/18 12/11/18 12/11/18 08:06 08:06 08:06 WBC RBC 3.44 L Hgb 8.4 L Hct 25.6 L MCV 74 L MCH 25 L RDW 17.2 H Lymph % (Auto) 5.9 L Lymph # 0.6 L Seg Neutrophils % 88.3 H Seg Neuts % (Manual) Lymphocytes % (Manual) Seg Neutrophils # 9.5 H Seg Neutrophils # Man Lymphocytes # (Manual) PT 16.6 H INR 1.26 H BUN 28 H Creatinine 1.9 H Glucose 190 H POC Glucose Phosphorus Magnesium Iron AST 70 H ALT 61 H CK-MB (CK-2) Rel Index 7.5 H Troponin T 0.048 H NT-Pro-B Natriuret Pep > 52276 H Albumin 3.1 L HDL Cholesterol 77 H Free T4 Urine WBC (Auto) 12/11/18 12/11/18 12/12/18 08:06 12:59 06:58 WBC RBC Hgb Hct MCV MCH RDW Lymph % (Auto) Lymph # Seg Neutrophils % Seg Neuts % (Manual) Lymphocytes % (Manual) Seg Neutrophils # Seg Neutrophils # Man Lymphocytes # (Manual) PT INR BUN Creatinine Glucose POC Glucose Phosphorus Magnesium Iron 14 L AST ALT CK-MB (CK-2) Rel Index Troponin T NT-Pro-B Natriuret Pep Albumin HDL Cholesterol Free T4 1.55 H Urine WBC (Auto) 15.0 H 12/12/18 12/12/18 12/12/18 06:58 07:39 12:34 WBC RBC Hgb Hct MCV MCH RDW Lymph % (Auto) Lymph # Seg Neutrophils % Seg Neuts % (Manual) Lymphocytes % (Manual) Seg Neutrophils # Seg Neutrophils # Man Lymphocytes # (Manual) PT INR BUN 38 H Creatinine 2.0 H Glucose 224 H POC Glucose 231 H 298 H Phosphorus 6.10 H Magnesium 2.60 H Iron AST 72 H ALT 99 H CK-MB (CK-2) Rel Index Troponin T NT-Pro-B Natriuret Pep Albumin 3.5 L HDL Cholesterol Free T4 Urine WBC (Auto) 12/12/18 12/12/18 12/13/18 18:31 21:19 04:49 WBC 11.5 H RBC 3.42 L Hgb 8.1 L Hct 25.6 L MCV 75 L MCH 24 L RDW 17.6 H Lymph % (Auto) Lymph # Seg Neutrophils % Seg Neuts % (Manual) 95.0 H Lymphocytes % (Manual) 2.0 L Seg Neutrophils # Seg Neutrophils # Man 10.9 H Lymphocytes # (Manual) 0.2 L PT INR BUN Creatinine Glucose POC Glucose 240 H 208 H Phosphorus Magnesium Iron AST ALT CK-MB (CK-2) Rel Index Troponin T NT-Pro-B Natriuret Pep Albumin HDL Cholesterol Free T4 Urine WBC (Auto) 12/13/18 12/13/18 04:49 07:53 WBC RBC Hgb Hct MCV MCH RDW Lymph % (Auto) Lymph # Seg Neutrophils % Seg Neuts % (Manual) Lymphocytes % (Manual) Seg Neutrophils # Seg Neutrophils # Man Lymphocytes # (Manual) PT INR BUN 53 H Creatinine 2.3 H Glucose 198 H POC Glucose 213 H Phosphorus Magnesium Iron AST 48 H ALT 88 H CK-MB (CK-2) Rel Index Troponin T NT-Pro-B Natriuret Pep Albumin 3.2 L HDL Cholesterol Free T4 Urine WBC (Auto) - Diagnostic Findings Chest x-ray: image reviewed (Hyperinflation with bilateral interstitial changes, most likely chronic and scarring. Could be fibrosis) Assessment and Plan 78 y/o female with acute exacerbation of COPD, Worsening renal failure and persistent shortness of breath. 1. Patient is already on BID long acting bronchodilator therapy 2. Agree with PRN regimen as ordered 3. Will increase steroids to 60q6 compared to the q8 dosing ordered 4. Renal on board and reviewed cardiology notes, if possible needs more volume removed. 5. Long discussion with son at bedside who confirms progressive decline. Suggest trying current therapy now and if no improvement, may need to consider palliative/comfort measures.
--- NOTE | 2018-12-13 22:46 | Ultrasound Report ---
PROCEDURE: US RENAL BILAT TECHNIQUE: Real-time sonography was performed of the kidneys with image documentation. HISTORY: Acute renal failure. COMPARISONS: None . FINDINGS: Real-time ultrasound of the kidneys was performed. The right kidney measures 10.4 x 3.7 x 4.4 cm. Cortical thickness is 1.3 cm which is normal. There is no evidence of hydronephrosis. Cortical echotexture is increased from normal consistent with acute r enal disease. The left kidney measures 10.2 x 4.7 x 4.9 cm. Cortical thickness was 1.0 cm which is normal. There is an upper pole cyst 1.2 x 1.4 x 1.6 cm and there are 2 lower pole cysts 1.0 x 1.0 cm and 1.2 x 1.4 cm . There is a midpole calculus, 0.8 cm. No hydronephrosis is seen. Cortical echotexture is within norm al limits. The urinary bladder is unremarkable. IMPRESSION: The kidneys appear normal in size but are increasing cortical echotexture consistent with acute renal disease This document is electronically signed by Mohamud Fan MD., Dec 13 2018 10:44:45 PM ET
[2018-12-13] MEDS: NACL 0.9% 1000 ML 1,000 ML IV SCH (23:18)
[2018-12-13] MEDS: CARDURA PO SCH (23:21)
[2018-12-14] MEDS: SOLU-Medrol IV SCH ×3 (01:45→12:03)
[2018-12-14] MEDS: XANAX PO PRN ×2 (01:46→21:34)
[2018-12-14] MEDS ORDERED: NACL 0.9% 1000 ML 1,000 ML IV ONE (05:35)
[2018-12-14 05:53] LABS: Hematocrit 25.9 % (30.3-42.9); Hemoglobin 8.3 gm/dl (10.1-14.3); Mean Corpuscular HGB Conc 32 % (30-34); Mean Corpuscular Volume 75 fl (79-97); Platelet Count 301 K/mm3 (140-440); Red Blood Count 3.44 M/mm3 (3.65-5.03)
[2018-12-14 06:12] LABS: Calcium 8.2 mg/dL (8.4-10.2)
[2018-12-14 06:40] LABS: Band Neutrophils # (Manual) 0.1 K/mm3; Basophils % (Manual) 0 % (0.0-1.8); Eosinophils % (Manual) 0 % (0.0-4.3); Total Cells Counted 100
[2018-12-14 06:41] LABS: Anisocytosis 1+; Platelet Estimate Consistent w Auto; Poikilocytosis 1+
[2018-12-14] MEDS: HumaLOG SUB-Q SCH ×4 (07:52→21:33)
[2018-12-14] MEDS: PULMICORT IH SCH ×2 (08:23→20:48)
[2018-12-14] MEDS: DUONEB *Not for PRN Use IH SCH ×4 (08:23→20:48)
[2018-12-14] MEDS: BROVANA NEBU IH SCH ×2 (08:23→20:48)
--- NOTE | 2018-12-14 08:55 | Progress Note ---
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 followed by vascular as an outpatient DNR/AND status Conservative cardiac management. Subjective Date of service: 12/14/18 Interval history: Mild sinus tachycardia on telemetry this morning. Family member at bedside. Objective Vital Signs Temp Pulse Pulse Pulse Pulse Resp Resp 12/14/18 08:32 12/14/18 08:25 105 H 18 12/13/18 23:21 110 H 12/13/18 23:08 97.4 F L 110 H 19 12/13/18 21:22 112 H 24 12/13/18 20:57 12/13/18 20:46 112 H 20 12/13/18 19:43 111 H 12/13/18 19:24 97.2 F L 111 H 17 12/13/18 17:50 97.3 F L 109 H 16 12/13/18 17:11 102 H 20 12/13/18 17:03 104 H 20 12/13/18 12:35 97.4 F L 101 H 16 12/13/18 11:47 103 H 22 12/13/18 11:38 12/13/18 11:36 102 H 22 12/13/18 10:00 105 H 105 H 12/13/18 09:50 116 H BP Pulse Ox 12/14/18 08:32 99 12/14/18 08:25 12/13/18 23:21 135/65 12/13/18 23:08 133/65 94 12/13/18 21:22 96 12/13/18 20:57 96 12/13/18 20:46 12/13/18 19:43 12/13/18 19:24 111/68 98 12/13/18 17:50 106/64 99 12/13/18 17:11 12/13/18 17:03 12/13/18 12:35 98/49 95 12/13/18 11:47 12/13/18 11:38 99 12/13/18 11:36 12/13/18 10:00 12/13/18 09:50 127/73 - Physical Examination General: No Apparent Distress HEENT: Positive: PERRL Neck: Positive: trachea midline Cardiac: Positive: Tachycardia Lungs: Positive: Rales Neuro: Positive: Grossly Intact Extremities: Absent: edema - Labs and Meds CBC 12/14/18 Range/Units 05:11 WBC 9.8 (4.5-11.0) K/mm3 RBC 3.44 L (3.65-5.03) M/mm3 Hgb 8.3 L (10.1-14.3) gm/dl Hct 25.9 L (30.3-42.9) % Plt Count 301 (140-440) K/mm3 Comprehensive Metabolic Panel 12/14/18 Range/Units 05:11 Sodium 135 L (137-145) mmol/L Potassium 5.1 H (3.6-5.0) mmol/L Chloride 97.7 L (98-107) mmol/L Carbon Dioxide 19 L (22-30) mmol/L BUN 65 H (7-17) mg/dL Creatinine 2.5 H (0.7-1.2) mg/dL Glucose 177 H (65-100) mg/dL Calcium 8.2 L (8.4-10.2) mg/dL
[2018-12-14] MEDS: CARDIZEM CD PO SCH (09:42)
[2018-12-14] MEDS: LOVENOX SUB-Q SCH (09:42)
[2018-12-14] MEDS: FEOSOL PO SCH ×2 (09:42→21:31)
[2018-12-14] MEDS: ROCEPHIN/NS 2 GM/100 ML 2 GM/100 ML BAG IV SCH (09:43)
[2018-12-14] MEDS ORDERED: KIONEX PO NR (09:56)
--- NOTE | 2018-12-14 09:56 | Progress Note ---
Assessment and Plan 1. Acute kidney injury: Likely vasomotor ROSITA in the setting of volume depletion. Renal US was negative for hydro. Renal function continue to decline. Renal prognosis is guarded. Continue IV fluids. Monitor renal function. Avoid nephrotoxic agents. Meds dosage based on GFR. 2. FEN: Hyperkalemia, kayexalate ordered. Metabolic acidosis, monitor. IV fluids. Monitor lytes. 3. Hypoxic respiratory failure: Likely from COPD exacerbation. 4. Suspected UTI. 5. Elevated Transaminases. 6. Anemia: POA. D/w her son at the bedside. Subjective Date of service: 12/14/18 Interval history: Patient was seen and examined at the bedside. Continues to have sob. Objective - Vital Signs Vital signs: Vital Signs - 12hr 12/13/18 12/13/18 12/14/18 23:08 23:21 04:04 Temperature 97.4 F L 97.4 F L Pulse Rate 110 H 110 H 120 H Pulse Rate [ Anterior Bilateral Throughout] Respiratory 19 19 Rate Respiratory Rate [Anterior Bilateral Throughout] Blood Pressure 133/65 135/65 96/49 O2 Sat by Pulse 94 97 Oximetry 12/14/18 12/14/18 12/14/18 04:27 04:55 05:48 Temperature Pulse Rate 106 H Pulse Rate [ Anterior Bilateral Throughout] Respiratory 24 20 18 Rate Respiratory Rate [Anterior Bilateral Throughout] Blood Pressure 88/61 100/62 111/77 O2 Sat by Pulse 95 Oximetry 12/14/18 12/14/18 12/14/18 08:25 08:32 08:39 Temperature 97.3 F L Pulse Rate 115 H Pulse Rate [ 105 H Anterior Bilateral Throughout] Respiratory 18 Rate Respiratory 18 Rate [Anterior Bilateral Throughout] Blood Pressure 132/74 O2 Sat by Pulse 99 96 Oximetry 12/14/18 09:42 Temperature Pulse Rate 115 H Pulse Rate [ Anterior Bilateral Throughout] Respiratory Rate Respiratory Rate [Anterior Bilateral Throughout] Blood Pressure 132/74 O2 Sat by Pulse Oximetry - General Appearance General appearance: well-developed, appears stated age, other (some respiratory distress) EENT: ATNC, PERRL, mucous membranes dry, hearing intact, vision intact Neck: supple Respiratory: Present: Clear to Ascultation Cardiology: regular, S1S2, no murmurs Gastrointestinal: normoactive bowel sounds, no tenderness, no distended Integumentary: no rash, warm and dry Neurologic: no focal deficit, no asterixis Musculoskeletal: other (trace LE edema) - Lab 12/14/18 05:11 12/14/18 05:11 Most recent lab results Calcium 8.2 mg/dL (8.4-10.2) L 12/14/18 05:11 Phosphorus 6.10 mg/dL (2.5-4.5) H 12/12/18 06:58 Magnesium 2.60 mg/dL (1.7-2.3) H 12/12/18 06:58 Medications & Allergies - Medications Allergies/Adverse Reactions: Allergies Penicillins Adverse Reaction (Verified 12/11/18 09:40) Unknown Home Medications: Home Medications Medication Instructions Recorded Confirmed Last Taken Type ALBUTEROL Inhaler (OR & NICU) 1 puff IH Q4H PRN 12/11/18 12/11/18 Unknown His tory [Proair] Doxazosin [Cardura] 1 mg PO QHS 12/11/18 12/11/18 Unknown History Fluticasone/Salmeterol [Advair 1 puff IH BID 12/11/18 12/11/18 Unknown History Diskus 250-50 mcg] dilTIAZem CD [Cardizem Cd] 240 mg PO QDAY 12/11/18 12/11/18 Unknown History prednisoLONE [Millipred] 10 mg PO Q2D 12/11/18 12/11/18 Unknown History Active Medications: Generic Name Dose Route Start Last Admin Trade Name Freq PRN Reason Stop Dose Admin Acetaminophen 650 mg 12/11/18 09:48 Tylenol PO Q4H PRN Pain MILD(1-3)/Fever >100.5/JOAQUIN Albuterol 2.5 mg 12/11/18 09:51 12/13/18 03:51 Proventil IH 2.5 mg Q4HRT PRN Administration Shortness Of Breath Albuterol/Ipratropium 1 ampul 12/11/18 12:00 12/14/18 08:23 Duoneb *Not For Prn Use* IH Not Given QIDRT ABDIFATAH Alprazolam 0.5 mg 12/12/18 11:29 12/14/18 01:46 Xanax PO 0.5 mg Q8H PRN Administration Anxiety Arformoterol Tartrate 15 mcg 12/12/18 08:00 12/14/18 08:23 Brovana Nebu IH 15 mcg Q12HRT ABDIFATAH Administration Budesonide 0.5 mg 12/12/18 08:00 12/14/18 08:23 Pulmicort IH 0.5 mg Q12HRT ABDIFATAH Administration Diltiazem HCl 240 mg 12/12/18 10:00 12/14/18 09:42 Cardizem Cd PO 240 mg QDAY ABDIFATAH Administration Doxazosin Mesylate 1 mg 12/12/18 22:00 12/13/18 23:21 Cardura PO 1 mg QHS ABDIFATAH Administration Enoxaparin Sodium 30 mg 12/11/18 10:00 12/14/18 09:42 Lovenox SUB-Q 30 mg QDAY ABDIFATAH Administration Ferrous Sulfate 325 mg 12/12/18 22:00 12/14/18 09:42 Feosol PO 325 mg BID ABDIFATAH Administration Azithromycin 500 mg/ Sodium 250 mls @ 250 mls/hr 12/11/18 10:00 12/13/18 10:00 Chloride IV 250 mls/hr Q24HR ABDIFATAH Administration Ceftriaxone Sodium 2 gm in 100 mls @ 200 mls/hr 12/11/18 10:00 12/14/18 09:43 Rocephin/Ns 2 Gm/100 Ml IV 200 mls/hr Q24HR ABDIFATAH Administration Protocol Sodium Chloride 1,000 mls @ 50 mls/hr 12/12/18 12:00 12/13/18 23:18 Nacl 0.9% 1000 Ml IV 50 mls/hr DIRECT ABDIFATAH Administration Insulin Human Lispro 0 unit 12/12/18 07:30 12/13/18 23:22 Humalog SUB-Q 2 unit ACHS ABDIFATAH Administration Protocol Loratadine/Pseudoephedrine Sulfate 1 each 12/13/18 10:00 12/13/18 10:33 Claritin-D 24hr PO 1 each Q24HR ABDIFATAH Administration Methylprednisolone Sodium Succinate 60 mg 12/13/18 20:00 12/14/18 05:43 Solu-Medrol IV 60 mg Q6HR ABDIFATAH Administration Ondansetron HCl 4 mg 12/11/18 09:48 Zofran IV Q8H PRN Nausea And Vomiting Sodium Chloride 10 ml 12/11/18 10:00 12/13/18 23:22 Sodium Chloride Flush Syringe 10 Ml IV 10 ml BID ABDIFATAH Administration Sodium Chloride 10 ml 12/11/18 09:48 Sodium Chloride Flush Syringe 10 Ml IV PRN PRN LINE FLUSH
[2018-12-14] MEDS: CLARITIN-D 24HR PO SCH (10:11)
[2018-12-14] MEDS: SODIUM CHLORIDE FLUSH SYRINGE 10 ML IV SCH ×2 (12:04→21:43)
[2018-12-14] MEDS: ZITHROMAX 500 MG in NACL 0.9% 250ML 250 ML IV SCH (12:17)
--- NOTE | 2018-12-14 16:05 | Progress Note ---
Assessment and Plan 78 y/o female with acute exacerbation of COPD, Worsening renal failure and persistent shortness of breath. 1. Patient is already on BID long acting bronchodilator therapy 2. Agree with PRN regimen as ordered 3. Continue steroids at q6 hour dosing. 4. Hopeful renal can given some insight into prognosis of renal function 5. Family is preparing for possible hospice, palliative care which I agree is appropriate. Subjective Date of service: 12/14/18 Interval history: Kidney function continues to worsen. Per Son, at bedside, patient looks better today compared to last night but to me she looks the same. Sats are the same but still very short of breath just at rest. Objective Vital Signs - 12hr 12/14/18 12/14/18 12/14/18 04:04 04:27 04:55 Temperature 97.4 F L Pulse Rate 120 H Pulse Rate [ Anterior Bilateral Throughout] Respiratory 19 24 20 Rate Respiratory Rate [Anterior Bilateral Throughout] Blood Pressure 96/49 88/61 100/62 O2 Sat by Pulse 97 Oximetry 12/14/18 12/14/18 12/14/18 05:48 08:25 08:32 Temperature Pulse Rate 106 H Pulse Rate [ 105 H Anterior Bilateral Throughout] Respiratory 18 Rate Respiratory 18 Rate [Anterior Bilateral Throughout] Blood Pressure 111/77 O2 Sat by Pulse 95 99 Oximetry 12/14/18 12/14/18 12/14/18 08:39 08:45 09:42 Temperature 97.3 F L Pulse Rate 115 H 115 H Pulse Rate [ 105 H Anterior Bilateral Throughout] Respiratory 18 Rate Respiratory 20 Rate [Anterior Bilateral Throughout] Blood Pressure 132/74 132/74 O2 Sat by Pulse 96 Oximetry 12/14/18 12/14/18 14:12 14:30 Temperature Pulse Rate Pulse Rate [ 98 H 108 H Anterior Bilateral Throughout] Respiratory Rate Respiratory 18 20 Rate [Anterior Bilateral Throughout] Blood Pressure O2 Sat by Pulse Oximetry Constitutional: asleep, appears uncomfortable Eyes: non-icteric ENT: oropharynx moist Neck: supple Effort: mildly labored Ascultation: Bilateral: rales Percussion: Bilateral: not dull Tactile fremitus: Bilateral: normal Cardiovascular: regular rate and rhythm Gastrointestinal: soft, non-tender CBC and BMP: 12/14/18 05:11 12/14/18 05:11 ABG, PT/INR, D-dimer: ABG POC ABG pH 7.341 (7.35-7.45) L 12/13/18 15:52 POC ABG pCO2 41.4 (35-45) 12/13/18 15:52 POC ABG pO2 95 (80-105) 12/13/18 15:52 POC ABG HCO3 22.4 (22-26 mml/L) 12/13/18 15:52 POC ABG Total CO2 24 (23-27mmol/L) 12/13/18 15:52 POC ABG O2 Sat 97 12/13/18 15:52 PT/INR, D-dimer PT 16.6 Sec. (12.2-14.9) H 12/11/18 08:06 INR 1.26 (0.87-1.13) H 12/11/18 08:06 Abnormal lab findings: Abnormal Labs 12/11/18 12/11/18 12/11/18 08:06 08:06 08:06 WBC RBC 3.44 L Hgb 8.4 L Hct 25.6 L MCV 74 L MCH 25 L RDW 17.2 H Lymph % (Auto) 5.9 L Lymph # 0.6 L Seg Neutrophils % 88.3 H Seg Neuts % (Manual) Lymphocytes % (Manual) Nucleated RBC % Seg Neutrophils # 9.5 H Seg Neutrophils # Man Lymphocytes # (Manual) PT 16.6 H INR 1.26 H POC ABG pH Sodium Potassium Chloride Carbon Dioxide BUN 28 H Creatinine 1.9 H Glucose 190 H POC Glucose Calcium Phosphorus Magnesium Iron AST 70 H ALT 61 H CK-MB (CK-2) Rel Index 7.5 H Troponin T 0.048 H NT-Pro-B Natriuret Pep > 66190 H Albumin 3.1 L HDL Cholesterol 77 H Free T4 Urine WBC (Auto) 12/11/18 12/11/18 12/12/18 08:06 12:59 06:58 WBC RBC Hgb Hct MCV MCH RDW Lymph % (Auto) Lymph # Seg Neutrophils % Seg Neuts % (Manual) Lymphocytes % (Manual) Nucleated RBC % Seg Neutrophils # Seg Neutrophils # Man Lymphocytes # (Manual) PT INR POC ABG pH Sodium Potassium Chloride Carbon Dioxide BUN Creatinine Glucose POC Glucose Calcium Phosphorus Magnesium Iron 14 L AST ALT CK-MB (CK-2) Rel Index Troponin T NT-Pro-B Natriuret Pep Albumin HDL Cholesterol Free T4 1.55 H Urine WBC (Auto) 15.0 H 12/12/18 12/12/18 12/12/18 06:58 07:39 12:34 WBC RBC Hgb Hct MCV MCH RDW Lymph % (Auto) Lymph # Seg Neutrophils % Seg Neuts % (Manual) Lymphocytes % (Manual) Nucleated RBC % Seg Neutrophils # Seg Neutrophils # Man Lymphocytes # (Manual) PT INR POC ABG pH Sodium Potassium Chloride Carbon Dioxide BUN 38 H Creatinine 2.0 H Glucose 224 H POC Glucose 231 H 298 H Calcium Phosphorus 6.10 H Magnesium 2.60 H Iron AST 72 H ALT 99 H CK-MB (CK-2) Rel Index Troponin T NT-Pro-B Natriuret Pep Albumin 3.5 L HDL Cholesterol Free T4 Urine WBC (Auto) 12/12/18 12/12/18 12/13/18 18:31 21:19 04:49 WBC 11.5 H RBC 3.42 L Hgb 8.1 L Hct 25.6 L MCV 75 L MCH 24 L RDW 17.6 H Lymph % (Auto) Lymph # Seg Neutrophils % Seg Neuts % (Manual) 95.0 H Lymphocytes % (Manual) 2.0 L Nucleated RBC % Seg Neutrophils # Seg Neutrophils # Man 10.9 H Lymphocytes # (Manual) 0.2 L PT INR POC ABG pH Sodium Potassium Chloride Carbon Dioxide BUN Creatinine Glucose POC Glucose 240 H 208 H Calcium Phosphorus Magnesium Iron AST ALT CK-MB (CK-2) Rel Index Troponin T NT-Pro-B Natriuret Pep Albumin HDL Cholesterol Free T4 Urine WBC (Auto) 12/13/18 12/13/18 12/13/18 04:49 07:53 12:42 WBC RBC Hgb Hct MCV MCH RDW Lymph % (Auto) Lymph # Seg Neutrophils % Seg Neuts % (Manual) Lymphocytes % (Manual) Nucleated RBC % Seg Neutrophils # Seg Neutrophils # Man Lymphocytes # (Manual) PT INR POC ABG pH Sodium Potassium Chloride Carbon Dioxide BUN 53 H Creatinine 2.3 H Glucose 198 H POC Glucose 213 H 337 H Calcium Phosphorus Magnesium Iron AST 48 H ALT 88 H CK-MB (CK-2) Rel Index Troponin T NT-Pro-B Natriuret Pep Albumin 3.2 L HDL Cholesterol Free T4 Urine WBC (Auto) 12/13/18 12/13/18 12/13/18 15:52 17:57 21:27 WBC RBC Hgb Hct MCV MCH RDW Lymph % (Auto) Lymph # Seg Neutrophils % Seg Neuts % (Manual) Lymphocytes % (Manual) Nucleated RBC % Seg Neutrophils # Seg Neutrophils # Man Lymphocytes # (Manual) PT INR POC ABG pH 7.341 L Sodium Potassium Chloride Carbon Dioxide BUN Creatinine Glucose POC Glucose 152 H 177 H Calcium Phosphorus Magnesium Iron AST ALT CK-MB (CK-2) Rel Index Troponin T NT-Pro-B Natriuret Pep Albumin HDL Cholesterol Free T4 Urine WBC (Auto) 12/14/18 12/14/18 12/14/18 05:11 05:11 08:45 WBC RBC 3.44 L Hgb 8.3 L Hct 25.9 L MCV 75 L MCH 24 L RDW 18.0 H Lymph % (Auto) Lymph # Seg Neutrophils % Seg Neuts % (Manual) 91.0 H Lymphocytes % (Manual) 4.0 L Nucleated RBC % 1.0 H Seg Neutrophils # Seg Neutrophils # Man 8.9 H Lymphocytes # (Manual) 0.4 L PT INR POC ABG pH Sodium 135 L Potassium 5.1 H Chloride 97.7 L Carbon Dioxide 19 L BUN 65 H Creatinine 2.5 H Glucose 177 H POC Glucose 179 H Calcium 8.2 L Phosphorus Magnesium Iron AST ALT CK-MB (CK-2) Rel Index Troponin T NT-Pro-B Natriuret Pep Albumin HDL Cholesterol Free T4 Urine WBC (Auto) 12/14/18 12:43 WBC RBC Hgb Hct MCV MCH RDW Lymph % (Auto) Lymph # Seg Neutrophils % Seg Neuts % (Manual) Lymphocytes % (Manual) Nucleated RBC % Seg Neutrophils # Seg Neutrophils # Man Lymphocytes # (Manual) PT INR POC ABG pH Sodium Potassium Chloride Carbon Dioxide BUN Creatinine Glucose POC Glucose 207 H Calcium Phosphorus Magnesium Iron AST ALT CK-MB (CK-2) Rel Index Troponin T NT-Pro-B Natriuret Pep Albumin HDL Cholesterol Free T4 Urine WBC (Auto)
--- NOTE | 2018-12-14 19:32 | Progress Note ---
Assessment and Plan Assessment and plan: --Acute hypoxic respiratory failure; secondary to COPD exacerbation Patient is in no acute distress today, son is at the bedside --Acute exacerbation of end-stage COPD; Home oxygen dependent, oxygen O2 sats more than 90%, nebulizers IV steroids, IV antibiotics, pulmonary consultation very poor prognosis --Type 2 diabetes mellitus; Accu-Chek sliding scale coverage and ADA diet Insulin as needed, hemoglobin A1c 5.7, diabetic diet --Elevated BNP; normal echocardiogram, ejection fraction normal Cardiology evaluated the patient, no evidence of congestive heart --Acute kidney injury; secondary to ATN Closely monitor renal function, avoid nephrotoxins, nephrology following --History of iron deficiency anemia; closely monitor H&H Transfuse as needed, iron supplements --History of GI bleed in the past; closely monitor --Mild malnutrition. Albumin 3.1-3.5, Supportive care --DVT prophylaxis; Lovenox renal dose Patient is critically ill, unable to complete sentences Using accessory muscles, Very poor Prognosis --DO NOT RESUSCITATE status Discharge plan. Case management/hospice evaluation Consults and recommendations noted Plan of care reviewed with the patient's son at the bedside and the nurse History Interval history: Patient seen and examined, Son is at the bedside Medical records reviewed, patient is in mild distress Vital signs reviewed Hospitalist Physical - Constitutional Vitals: Temp Pulse Resp BP Pulse Ox 98.0 F 112 H 22 112/62 96 12/14/18 16:57 12/14/18 16:57 12/14/18 16:57 12/14/18 16:57 12/14/18 16:57 General appearance: Present: mild distress, cachectic, disheveled - EENT Eyes: Present: PERRL, EOM intact - Neck Neck: Present: supple, normal ROM - Respiratory Respiratory effort: labored Respiratory: bilateral: diminished, rhonchi, negative: rales, wheezing - Cardiovascular Rhythm: regular Heart Sounds: Present: S1 & S2 - Extremities Extremities: no ischemia, No edema - Abdominal General gastrointestinal: soft, non-tender, non-distended, normal bowel sounds - Integumentary Integumentary: Present: clear, warm - Psychiatric Psychiatric: appropriate mood/affect, agitated, other (in distress) - Neurologic Neurologic: moves all extremities Results - Labs CBC & Chem 7: 12/14/18 05:11 12/14/18 05:11 Labs: Laboratory Last Values WBC 9.8 K/mm3 (4.5-11.0) 12/14/18 05:11 RBC 3.44 M/mm3 (3.65-5.03) L 12/14/18 05:11 Hgb 8.3 gm/dl (10.1-14.3) L 12/14/18 05:11 Hct 25.9 % (30.3-42.9) L 12/14/18 05:11 MCV 75 fl (79-97) L 12/14/18 05:11 MCH 24 pg (28-32) L 12/14/18 05:11 MCHC 32 % (30-34) 12/14/18 05:11 RDW 18.0 % (13.2-15.2) H 12/14/18 05:11 Plt Count 301 K/mm3 (140-440) 12/14/18 05:11 Lymph % (Auto) 5.9 % (13.4-35.0) L 12/11/18 08:06 Banks % (Auto) 5.4 % (0.0-7.3) 12/11/18 08:06 Eos % (Auto) 0.2 % (0.0-4.3) 12/11/18 08:06 Baso % (Auto) 0.2 % (0.0-1.8) 12/11/18 08:06 Lymph # 0.6 K/mm3 (1.2-5.4) L 12/11/18 08:06 Banks # 0.6 K/mm3 (0.0-0.8) 12/11/18 08:06 Eos # 0.0 K/mm3 (0.0-0.4) 12/11/18 08:06 Baso # 0.0 K/mm3 (0.0-0.1) 12/11/18 08:06 Add Manual Diff Complete 12/14/18 05:11 Total Counted 100 12/14/18 05:11 Seg Neutrophils % 88.3 % (40.0-70.0) H 12/11/18 08:06 Seg Neuts % (Manual) 91.0 % (40.0-70.0) H 12/14/18 05:11 1.0 % 12/14/18 05:11 4.0 % (13.4-35.0) L 12/14/18 05:11 Reactive Lymphs % (Man) 0 % 12/14/18 05:11 4.0 % (0.0-7.3) 12/14/18 05:11 0 % (0.0-4.3) 12/14/18 05:11 0 % (0.0-1.8) 12/14/18 05:11 0 % 12/14/18 05:11 0 % 12/14/18 05:11 0 % 12/14/18 05:11 0 % 12/14/18 05:11 Nucleated RBC % 1.0 % (0.0-0.9) H 12/14/18 05:11 Seg Neutrophils # 9.5 K/mm3 (1.8-7.7) H 12/11/18 08:06 Seg Neutrophils # Man 8.9 K/mm3 (1.8-7.7) H 12/14/18 05:11 Band Neutrophils # 0.1 K/mm3 12/14/18 05:11 0.4 K/mm3 (1.2-5.4) L 12/14/18 05:11 Abs React Lymphs (Man) 0.0 K/mm3 12/14/18 05:11 0.4 K/mm3 (0.0-0.8) 12/14/18 05:11 0.0 K/mm3 (0.0-0.4) 12/14/18 05:11 0.0 K/mm3 (0.0-0.1) 12/14/18 05:11 0.0 K/mm3 12/14/18 05:11 0.0 K/mm3 12/14/18 05:11 0.0 K/mm3 12/14/18 05:11 Blast Cells # 0.0 K/mm3 12/14/18 05:11 WBC Morphology Not Reportable 12/14/18 05:11 WBC Morphology TNR 12/14/18 05:11 Hypersegmented Neuts Not Reportable 12/14/18 05:11 Hyposegmented Neuts Not Reportable 12/14/18 05:11 Hypogranular Neuts Not Reportable 12/14/18 05:11 Not Reportable 12/14/18 05:11 Not Reportable 12/14/18 05:11 Not Reportable 12/14/18 05:11 Not Reportable 12/14/18 05:11 Not Reportable 12/14/18 05:11 Not Reportable 12/14/18 05:11 Consistent w auto 12/14/18 05:11 Not Reportable 12/14/18 05:11 Plt Clumps, EDTA Not Reportable 12/14/18 05:11 Not Reportable 12/14/18 05:11 Not Reportable 12/14/18 05:11 Not Reportable 12/14/18 05:11 Plt Morphology Comment Not Reportable 12/14/18 05:11 RBC Morphology Not Reportable 12/14/18 05:11 Dimorphic RBCs Not Reportable 12/14/18 05:11 Not Reportable 12/14/18 05:11 Not Reportable 12/14/18 05:11 1+ 12/14/18 05:11 1+ 12/14/18 05:11 Not Reportable 12/14/18 05:11 Not Reportable 12/14/18 05:11 Not Reportable 12/14/18 05:11 Not Reportable 12/14/18 05:11 Not Reportable 12/14/18 05:11 Not Reportable 12/14/18 05:11 Not Reportable 12/14/18 05:11 Not Reportable 12/14/18 05:11 Not Reportable 12/14/18 05:11 Not Reportable 12/14/18 05:11 Not Reportable 12/14/18 05:11 Not Reportable 12/14/18 05:11 Not Reportable 12/14/18 05:11 Not Reportable 12/14/18 05:11 1+ 12/14/18 05:11 Acanthocytes (Spur) Not Reportable 12/14/18 05:11 Rouleaux Not Reportable 12/14/18 05:11 Not Reportable 12/14/18 05:11 Not Reportable 12/14/18 05:11 Not Reportable 12/14/18 05:11 Not Reportable 12/14/18 05:11 Hem Pathologist Commnt No 12/14/18 05:11 PT 16.6 Sec. (12.2-14.9) H 12/11/18 08:06 INR 1.26 (0.87-1.13) H 12/11/18 08:06 APTT 33.1 Sec. (24.2-36.6) 12/11/18 08:06 POC ABG pH 7.341 (7.35-7.45) L 12/13/18 15:52 POC ABG pCO2 41.4 (35-45) 12/13/18 15:52 POC ABG pO2 95 (80-105) 12/13/18 15:52 POC ABG HCO3 22.4 (22-26 mml/L) 12/13/18 15:52 POC ABG Total CO2 24 (23-27mmol/L) 12/13/18 15:52 POC ABG O2 Sat 97 12/13/18 15:52 POC ABG Base Excess -3 ((-2) - (+3)mmol/L) 12/13/18 15:52 36 % 12/13/18 15:52 Sodium 135 mmol/L (137-145) L 12/14/18 05:11 Potassium 5.1 mmol/L (3.6-5.0) H 12/14/18 05:11 Chloride 97.7 mmol/L (98-107) L 12/14/18 05:11 Carbon Dioxide 19 mmol/L (22-30) L 12/14/18 05:11 23 mmol/L 12/14/18 05:11 BUN 65 mg/dL (7-17) H 12/14/18 05:11 2.5 mg/dL (0.7-1.2) H 12/14/18 05:11 Estimated GFR 19 ml/min 12/14/18 05:11 26 % 12/14/18 05:11 Glucose 177 mg/dL (65-100) H 12/14/18 05:11 POC Glucose 228 (70-105) H 12/14/18 16:59 5.7 % (4-6) 12/11/18 08:06 Lactic Acid 1.50 mmol/L (0.7-2.0) 12/11/18 08:06 Calcium 8.2 mg/dL (8.4-10.2) L 12/14/18 05:11 Phosphorus 6.10 mg/dL (2.5-4.5) H 12/12/18 06:58 Magnesium 2.60 mg/dL (1.7-2.3) H 12/12/18 06:58 Iron 14 ug/dL (37-170) L 12/12/18 06:58 TIBC 269 mcg/dL (250-450) 12/12/18 06:58 % Saturation 5.20 % 12/12/18 06:58 235 mg/dl (192-382) 12/12/18 06:58 0.20 mg/dL (0.1-1.2) 12/13/18 04:49 < 0.2 mg/dL (0-0.2) 12/11/18 08:06 0.1 mg/dL 12/11/18 08:06 AST 48 units/L (5-40) H 12/13/18 04:49 ALT 88 units/L (7-56) H 12/13/18 04:49 104 units/L (35-129) 12/13/18 04:49 41 units/L (30-135) 12/11/18 08:06 CK-MB (CK-2) 3.1 ng/mL (0.0-4.0) 12/11/18 08:06 CK-MB (CK-2) Rel Index 7.5 (0-4) H 12/11/18 08:06 0.048 ng/mL (0.00-0.029) H 12/11/18 08:06 NT-Pro-B Natriuret Pep > 79672 pg/mL (0-900) H 12/11/18 08:06 6.3 g/dL (6.3-8.2) 12/13/18 04:49 3.2 g/dL (3.9-5) L 12/13/18 04:49 1.0 % 12/13/18 04:49 Triglycerides 67 mg/dL (2-149) 12/11/18 08:06 Cholesterol 151 mg/dL (50-199) 12/11/18 08:06 67 mg/dL (50-130) 12/11/18 08:06 77 mg/dL (40-59) H 12/11/18 08:06 1.96 % 12/11/18 08:06 Vitamin B12 686.2 pg/mL (211-911) 12/12/18 06:58 13.48 ng/mL (7.3-26.0) 12/14/18 13:06 TSH 1.010 mlU/mL (0.270-4.200) 12/11/18 08:06 Free T4 1.55 ng/dL (0.76-1.46) H 12/11/18 08:06 Yellow (Yellow) 12/11/18 12:59 Slightly-cloudy (Clear) 12/11/18 12:59 5.0 (5.0-7.0) 12/11/18 12:59 Ur Specific [place] 1.015 (1.003-1.030) 12/11/18 12:59 30 mg/dl mg/dL (Negative) 12/11/18 12:59 Neg mg/dL (Negative) 12/11/18 12:59 Neg mg/dL (Negative) 12/11/18 12:59 Neg (Negative) 12/11/18 12:59 Neg (Negative) 12/11/18 12:59 Neg (Negative) 12/11/18 12:59 < 2.0 mg/dL (<2.0) 12/11/18 12:59 Ur Leukocyte Esterase Mod (Negative) 12/11/18 12:59 15.0 /HPF (0.0-6.0) H 12/11/18 12:59 1.0 /HPF (0.0-6.0) 12/11/18 12:59 U Epithel Cells (Auto) 2.0 /HPF (0-13.0) 12/11/18 12:59 Hyaline Casts 1 /LPF 12/11/18 12:59 Few /HPF 12/11/18 12:59 Active Medications - Current Medications Current Medications: Generic Name Dose Route Start Last Admin Trade Name Freq PRN Reason Stop Dose Admin Acetaminophen 650 mg 12/11/18 09:48 Tylenol PO Q4H PRN Pain MILD(1-3)/Fever >100.5/JOAQUIN Albuterol 2.5 mg 12/11/18 09:51 12/13/18 03:51 Proventil IH 2.5 mg Q4HRT PRN Administration Shortness Of Breath Albuterol/Ipratropium 1 ampul 12/11/18 12:00 12/14/18 17:42 Duoneb *Not For Prn Use* IH Not Given QIDRT ABDIFATAH Alprazolam 0.5 mg 12/12/18 11:29 12/14/18 01:46 Xanax PO 0.5 mg Q8H PRN Administration Anxiety Arformoterol Tartrate 15 mcg 12/12/18 08:00 12/14/18 08:23 Brovana Nebu IH 15 mcg Q12HRT ABDIFATAH Administration Budesonide 0.5 mg 12/12/18 08:00 12/14/18 08:23 Pulmicort IH 0.5 mg Q12HRT ABDIFATAH Administration Diltiazem HCl 240 mg 12/12/18 10:00 12/14/18 09:42 Cardizem Cd PO 240 mg QDAY ABDIFATAH Administration Doxazosin Mesylate 1 mg 12/12/18 22:00 12/13/18 23:21 Cardura PO 1 mg QHS ABDIFATAH Administration Enoxaparin Sodium 30 mg 12/11/18 10:00 12/14/18 09:42 Lovenox SUB-Q 30 mg QDAY ABDIFATAH Administration Ferrous Sulfate 325 mg 12/12/18 22:00 12/14/18 09:42 Feosol PO 325 mg BID ABDIFATAH Administration Azithromycin 500 mg/ Sodium 250 mls @ 250 mls/hr 12/11/18 10:00 12/14/18 12:17 Chloride IV 250 mls/hr Q24HR ABDIFATAH Administration Ceftriaxone Sodium 2 gm in 100 mls @ 200 mls/hr 12/11/18 10:00 12/14/18 09:43 Rocephin/Ns 2 Gm/100 Ml IV 200 mls/hr Q24HR ABDIFATAH Administration Protocol Sodium Chloride 1,000 mls @ 50 mls/hr 12/12/18 12:00 12/13/18 23:18 Nacl 0.9% 1000 Ml IV 50 mls/hr DIRECT ABDIFATAH Administration Insulin Human Lispro 0 unit 12/12/18 07:30 12/14/18 18:01 Humalog SUB-Q 3 unit ACHS ABDIFATAH Administration Protocol Loratadine/Pseudoephedrine Sulfate 1 each 12/13/18 10:00 12/14/18 10:11 Claritin-D 24hr PO 1 each Q24HR ABDIFATAH Administration Methylprednisolone Sodium Succinate 60 mg 12/13/18 20:00 12/14/18 12:03 Solu-Medrol IV 60 mg Q6HR ABDIFATAH Administration Ondansetron HCl 4 mg 12/11/18 09:48 Zofran IV Q8H PRN Nausea And Vomiting Sodium Chloride 10 ml 12/11/18 10:00 12/14/18 12:04 Sodium Chloride Flush Syringe 10 Ml IV 10 ml BID ABDIFATAH Administration Sodium Chloride 10 ml 12/11/18 09:48 Sodium Chloride Flush Syringe 10 Ml IV PRN PRN LINE FLUSH Nutrition/Malnutrition Assess - Dietary Evaluation Nutrition/Malnutrition Findings: Nutrition Notes Start: 12/12/18 16:00 Freq: Status: Active Protocol: Document 12/12/18 16:00 RM (Rec: 12/12/18 16:08 RM [id number]) Nutrition Notes Need for Assessment generated from: MD Order Initial or Follow up Assessment Current Diagnosis Acute Kidney Injury,COPD, Diabetes,Hypertension Other Pertinent Diagnosis UTI, Sacral PU Current Diet Cardiac Labs/Tests Reviewed Pertinent Medications Solu-Medrol Height 5 ft 6 in Weight 61.7 kg Usual Body Weight 62.73 kg [place] Body Weight (kg) 59.09 BMI 21.9 Subjective/Other Information Consulted for nutrition recommendation. Screened for malnutrition risk and skin risk. Pt and pt son in room at time of visit. Pt son answered most of questions on behalf of pt. 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 Stated that pt ate half of her breakfast today. Admitted to pt tiring when chewing food. Stated UBW was 136-140 lbs 3 months ago. Noted temporal wasting. 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 No Is Patient Ambulatory and/or Out of Bed Yes REE-([place]-St. Jeor-ambulatory/OOB) [ 6964.875 [id number]] [facility] Additional Notes Protein Needs: 74-93g (1.2-1. 5g/kg) Fluid needs: 1 ml/kcal Nutrition Intervention Change Diet Order: Cardiac,Consistent CHO, Mech soft w/ground meat Add Supplement/Snack (indicate name/kcal Glucerna 1 daily /protein ) Provides kCal: 220 Provides Protein (gm) 10 Goal #1 Meet at least 75% of calorie and protein needs via PO and ONS intakes Anticipated Discharge Needs: Cardiac/Consistent CHO diet Follow-Up By: 12/19/18 Additional Comments Follow for PO and ONS intakes
[2018-12-14] MEDS: CARDURA PO SCH (21:31)
[2018-12-15] MEDS: SOLU-Medrol IV SCH ×6 (00:05→23:08)
[2018-12-15] MEDS: XANAX PO PRN ×2 (06:39→21:10)
[2018-12-15] MEDS: NACL 0.9% 1000 ML 1,000 ML IV SCH (06:41)
[2018-12-15 06:51] LABS: Calcium 8.3 mg/dL (8.4-10.2)
[2018-12-15] MEDS: BROVANA NEBU IH SCH ×2 (08:01→20:07)
[2018-12-15] MEDS: DUONEB *Not for PRN Use IH SCH ×4 (08:01→20:08)
[2018-12-15] MEDS: PULMICORT IH SCH ×2 (08:01→20:07)
--- NOTE | 2018-12-15 08:03 | Progress Note ---
Assessment and Plan 1. Acute kidney injury: Likely vasomotor ROSITA in the setting of volume depletion. Renal US was negative for hydro. Renal function continue to decline. Renal prognosis is guarded. Monitor renal function. Avoid nephrotoxic agents. Meds dosage based on GFR. 2. FEN: Hyperkalemia, improved. Metabolic acidosis, monitor. Monitor lytes. 3. Hypoxic respiratory failure: Likely from COPD exacerbation. 4. Suspected UTI. 5. Elevated Transaminases. 6. Anemia: POA. D/w her son at the bedside. Overall prognosis is slim. Hospice is appropriate. Subjective Date of service: 12/15/18 Interval history: Patient was seen and examined at the bedside. Continues to have sob. Objective - Vital Signs Vital signs: Vital Signs - 12hr 12/14/18 12/14/18 12/14/18 20:58 20:59 21:25 Temperature Pulse Rate Pulse Rate [ 114 H 114 H Anterior Bilateral Throughout] Respiratory Rate Respiratory 20 22 Rate [Anterior Bilateral Throughout] Blood Pressure O2 Sat by Pulse 94 Oximetry 12/14/18 12/14/18 12/15/18 21:31 23:16 03:40 Temperature 97.3 F L 97.5 F L Pulse Rate 114 H 60 116 H Pulse Rate [ Anterior Bilateral Throughout] Respiratory 19 20 Rate Respiratory Rate [Anterior Bilateral Throughout] Blood Pressure 137/75 103/71 O2 Sat by Pulse 99 97 Oximetry 12/15/18 07:54 Temperature 96.3 F L Pulse Rate 119 H Pulse Rate [ Anterior Bilateral Throughout] Respiratory 18 Rate Respiratory Rate [Anterior Bilateral Throughout] Blood Pressure 149/77 O2 Sat by Pulse 93 Oximetry - General Appearance General appearance: well-developed, appears stated age, other (tachypneic) EENT: ATNC, PERRL Neck: supple Respiratory: Present: Decreased Breath Sounds Cardiology: regular, S1S2, no murmurs Gastrointestinal: normoactive bowel sounds, no tenderness, no distended Integumentary: no rash, warm and dry Neurologic: confused, other (stuporous) Musculoskeletal: other (LE edema noted) - Lab 12/14/18 05:11 12/15/18 04:27 Most recent lab results Calcium 8.3 mg/dL (8.4-10.2) L 12/15/18 04:27 Phosphorus 6.10 mg/dL (2.5-4.5) H 12/12/18 06:58 Magnesium 2.60 mg/dL (1.7-2.3) H 12/12/18 06:58 Medications & Allergies - Medications Allergies/Adverse Reactions: Allergies Penicillins Adverse Reaction (Verified 12/11/18 09:40) Unknown Home Medications: Home Medications Medication Instructions Recorded Confirmed Last Taken Type ALBUTEROL Inhaler (OR & NICU) 1 puff IH Q4H PRN 12/11/18 12/11/18 Unknown History [Proair] Doxazosin [Cardura] 1 mg PO QHS 12/11/18 12/11/18 Unknown History Fluticasone/Salmeterol [Advair 1 puff IH BID 12/11/18 12/11/18 Unknown History Diskus 250-50 mcg] dilTIAZem CD [Cardizem Cd] 240 mg PO QDAY 12/11/18 12/11/18 Unknown History prednisoLONE [Millipred] 10 mg PO Q2D 12/11/18 12/11/18 Unknown History Active Medications: Generic Name Dose Route Start Last Admin Trade Name Freq PRN Reason Stop Dose Admin Acetaminophen 650 mg 12/11/18 09:48 12/15/18 00:02 Tylenol PO 650 mg Q4H PRN Administration Pain MILD(1-3)/Fever >100.5/JOAQUIN Albuterol 2.5 mg 12/11/18 09:51 12/13/18 03:51 Proventil IH 2.5 mg Q4HRT PRN Administration Shortness Of Breath Albuterol/Ipratropium 1 ampul 12/11/18 12:00 12/14/18 20:48 Duoneb *Not For Prn Use* IH Not Given QIDRT ABDIFATAH Alprazolam 0.5 mg 12/12/18 11:29 12/15/18 06:39 Xanax PO 0.5 mg Q8H PRN Administration Anxiety Arformoterol Tartrate 15 mcg 12/12/18 08:00 12/14/18 20:48 Brovana Nebu IH 15 mcg Q12HRT ABDIFATAH Administration Budesonide 0.5 mg 12/12/18 08:00 12/14/18 20:48 Pulmicort IH 0.5 mg Q12HRT ABDIFATAH Administration Diltiazem HCl 240 mg 12/12/18 10:00 12/14/18 09:42 Cardizem Cd PO 240 mg QDAY ABDIFATAH Administration Doxazosin Mesylate 1 mg 12/12/18 22:00 12/14/18 21:31 Cardura PO 1 mg QHS ABDIFATAH Administration Enoxaparin Sodium 30 mg 12/11/18 10:00 12/14/18 09:42 Lovenox SUB-Q 30 mg QDAY ABDIFATAH Administration Ferrous Sulfate 325 mg 12/12/18 22:00 12/14/18 21:31 Feosol PO 325 mg BID ABDIFATAH Administration Azithromycin 500 mg/ Sodium 250 mls @ 250 mls/hr 12/11/18 10:00 12/14/18 12:17 Chloride IV 250 mls/hr Q24HR ABDIFATAH Administration Ceftriaxone Sodium 2 gm in 100 mls @ 200 mls/hr 12/11/18 10:00 12/14/18 09:43 Rocephin/Ns 2 Gm/100 Ml IV 200 mls/hr Q24HR ABDIFATAH Administration Protocol Sodium Chloride 1,000 mls @ 50 mls/hr 12/12/18 12:00 12/15/18 06:41 Nacl 0.9% 1000 Ml IV 50 mls/hr DIRECT ABDIFATAH Administration Insulin Human Lispro 0 unit 12/12/18 07:30 12/14/18 21:33 Humalog SUB-Q 3 unit ACHS ABDIFATAH Administration Protocol Loratadine/Pseudoephedrine Sulfate 1 each 12/13/18 10:00 12/14/18 10:11 Claritin-D 24hr PO 1 each Q24HR ABDIFATAH Administration Methylprednisolone Sodium Succinate 60 mg 12/13/18 20:00 12/15/18 06:38 Solu-Medrol IV 60 mg Q6HR ABDIFATAH Administration Ondansetron HCl 4 mg 12/11/18 09:48 Zofran IV Q8H PRN Nausea And Vomiting Sodium Chloride 10 ml 12/11/18 10:00 12/14/18 21:43 Sodium Chloride Flush Syringe 10 Ml IV 10 ml BID ABDIFATAH Administration Sodium Chloride 10 ml 12/11/18 09:48 Sodium Chloride Flush Syringe 10 Ml IV PRN PRN LINE FLUSH
--- NOTE | 2018-12-15 08:37 | Progress Note ---
Assessment and Plan Assessment and plan: --Acute hypoxic respiratory failure; secondary to end-stage COPD with exacerbation Patient is in acute distress today, son is at the bedside, poor prognosis --Acute exacerbation of end-stage COPD; Home oxygen dependent, oxygen O2 sats more than 90%, nebulizers IV steroids, IV antibiotics, pulmonary following very poor prognosis --Type 2 diabetes mellitus; Accu-Chek sliding scale coverage and ADA diet Insulin as needed, hemoglobin A1c 5.7, diabetic diet --Elevated BNP; normal echocardiogram, ejection fraction normal Cardiology evaluated the patient, no evidence of congestive heart --Acute kidney injury; worsening renal function, secondary to ATN Closely monitor renal function, avoid nephrotoxins, nephrology following --History of iron deficiency anemia; closely monitor H&H Transfuse as needed, iron supplements --History of GI bleed in the past; closely monitor --Mild malnutrition. Albumin 3.1-3.5, Supportive care --DVT prophylaxis; Lovenox renal dose Patient is critically ill, unable to complete sentences Using accessory muscles, Very poor Prognosis --DO NOT RESUSCITATE status Discharge plan. Case management/hospice evaluation Consults and recommendations noted Plan of care reviewed with the patient's son at the bedside and the nurse History Interval history: Patient seen and examined medical records reviewed Patient is in severe respiratory distress, on BiPAP DNR/DNI status,Pending hospice evaluation Patient's son at the bedside Vital signs noted. Hospitalist Physical - Constitutional Vitals: Temp Pulse Resp BP Pulse Ox 96.3 F L 117 H 20 149/77 98 12/15/18 07:54 12/15/18 08:20 12/15/18 08:20 12/15/18 07:54 12/15/18 08:05 General appearance: Present: severe distress, cachectic, disheveled - EENT Eyes: Present: PERRL, EOM intact - Neck Neck: Present: supple, normal ROM - Respiratory Respiratory effort: labored Respiratory: bilateral: diminished, rhonchi, negative: rales, wheezing - Cardiovascular Rhythm: regular Heart Sounds: Present: S1 & S2 - Extremities Extremities: no ischemia, No edema - Abdominal General gastrointestinal: soft, non-tender, non-distended, normal bowel sounds - Integumentary Integumentary: Present: clear, warm - Psychiatric Psychiatric: appropriate mood/affect, other (patient is tired) - Neurologic Neurologic: CNII-XII intact, moves all extremities Results - Labs CBC & Chem 7: 12/14/18 05:11 12/15/18 04:27 Labs: Laboratory Last Values WBC 9.8 K/mm3 (4.5-11.0) 12/14/18 05:11 RBC 3.44 M/mm3 (3.65-5.03) L 12/14/18 05:11 Hgb 8.3 gm/dl (10.1-14.3) L 12/14/18 05:11 Hct 25.9 % (30.3-42.9) L 12/14/18 05:11 MCV 75 fl (79-97) L 12/14/18 05:11 MCH 24 pg (28-32) L 12/14/18 05:11 MCHC 32 % (30-34) 12/14/18 05:11 RDW 18.0 % (13.2-15.2) H 12/14/18 05:11 Plt Count 301 K/mm3 (140-440) 12/14/18 05:11 Lymph % (Auto) 5.9 % (13.4-35.0) L 12/11/18 08:06 [place] % (Auto) 5.4 % (0.0-7.3) 12/11/18 08:06 Eos % (Auto) 0.2 % (0.0-4.3) 12/11/18 08:06 Baso % (Auto) 0.2 % (0.0-1.8) 12/11/18 08:06 Lymph # 0.6 K/mm3 (1.2-5.4) L 12/11/18 08:06 Forrest # 0.6 K/mm3 (0.0-0.8) 12/11/18 08:06 Eos # 0.0 K/mm3 (0.0-0.4) 12/11/18 08:06 Baso # 0.0 K/mm3 (0.0-0.1) 12/11/18 08:06 Add Manual Diff Complete 12/14/18 05:11 Total Counted 100 12/14/18 05:11 Seg Neutrophils % 88.3 % (40.0-70.0) H 12/11/18 08:06 Seg Neuts % (Manual) 91.0 % (40.0-70.0) H 12/14/18 05:11 1.0 % 12/14/18 05:11 4.0 % (13.4-35.0) L 12/14/18 05:11 Reactive Lymphs % (Man) 0 % 12/14/18 05:11 4.0 % (0.0-7.3) 12/14/18 05:11 0 % (0.0-4.3) 12/14/18 05:11 0 % (0.0-1.8) 12/14/18 05:11 0 % 12/14/18 05:11 0 % 12/14/18 05:11 0 % 12/14/18 05:11 0 % 12/14/18 05:11 Nucleated RBC % 1.0 % (0.0-0.9) H 12/14/18 05:11 Seg Neutrophils # 9.5 K/mm3 (1.8-7.7) H 12/11/18 08:06 Seg Neutrophils # Man 8.9 K/mm3 (1.8-7.7) H 12/14/18 05:11 Band Neutrophils # 0.1 K/mm3 12/14/18 05:11 0.4 K/mm3 (1.2-5.4) L 12/14/18 05:11 Abs React Lymphs (Man) 0.0 K/mm3 12/14/18 05:11 0.4 K/mm3 (0.0-0.8) 12/14/18 05:11 0.0 K/mm3 (0.0-0.4) 12/14/18 05:11 0.0 K/mm3 (0.0-0.1) 12/14/18 05:11 0.0 K/mm3 12/14/18 05:11 0.0 K/mm3 12/14/18 05:11 0.0 K/mm3 12/14/18 05:11 Blast Cells # 0.0 K/mm3 12/14/18 05:11 WBC Morphology Not Reportable 12/14/18 05:11 WBC Morphology TNR 12/14/18 05:11 Hypersegmented Neuts Not Reportable 12/14/18 05:11 Hyposegmented Neuts Not Reportable 12/14/18 05:11 Hypogranular Neuts Not Reportable 12/14/18 05:11 Not Reportable 12/14/18 05:11 Not Reportable 12/14/18 05:11 Not Reportable 12/14/18 05:11 Not Reportable 12/14/18 05:11 Not Reportable 12/14/18 05:11 Not Reportable 12/14/18 05:11 Consistent w auto 12/14/18 05:11 Not Reportable 12/14/18 05:11 Plt Clumps, EDTA Not Reportable 12/14/18 05:11 Not Reportable 12/14/18 05:11 Not Reportable 12/14/18 05:11 Not Reportable 12/14/18 05:11 Plt Morphology Comment Not Reportable 12/14/18 05:11 RBC Morphology Not Reportable 12/14/18 05:11 Dimorphic RBCs Not Reportable 12/14/18 05:11 Not Reportable 12/14/18 05:11 Not Reportable 12/14/18 05:11 1+ 12/14/18 05:11 1+ 12/14/18 05:11 Not Reportable 12/14/18 05:11 Not Reportable 12/14/18 05:11 Not Reportable 12/14/18 05:11 Not Reportable 12/14/18 05:11 Not Reportable 12/14/18 05:11 Not Reportable 12/14/18 05:11 Not Reportable 12/14/18 05:11 Not Reportable 12/14/18 05:11 Not Reportable 12/14/18 05:11 Not Reportable 12/14/18 05:11 Not Reportable 12/14/18 05:11 Not Reportable 12/14/18 05:11 Not Reportable 12/14/18 05:11 Not Reportable 12/14/18 05:11 1+ 12/14/18 05:11 Acanthocytes (Spur) Not Reportable 12/14/18 05:11 Rouleaux Not Reportable 12/14/18 05:11 Not Reportable 12/14/18 05:11 Not Reportable 12/14/18 05:11 Not Reportable 12/14/18 05:11 Not Reportable 12/14/18 05:11 Hem Pathologist Commnt No 12/14/18 05:11 PT 16.6 Sec. (12.2-14.9) H 12/11/18 08:06 INR 1.26 (0.87-1.13) H 12/11/18 08:06 APTT 33.1 Sec. (24.2-36.6) 12/11/18 08:06 POC ABG pH 7.341 (7.35-7.45) L 12/13/18 15:52 POC ABG pCO2 41.4 (35-45) 12/13/18 15:52 POC ABG pO2 95 (80-105) 12/13/18 15:52 POC ABG HCO3 22.4 (22-26 mml/L) 12/13/18 15:52 POC ABG Total CO2 24 (23-27mmol/L) 12/13/18 15:52 POC ABG O2 Sat 97 12/13/18 15:52 POC ABG Base Excess -3 ((-2) - (+3)mmol/L) 12/13/18 15:52 36 % 12/13/18 15:52 Sodium 135 mmol/L (137-145) L 12/15/18 04:27 Potassium 4.9 mmol/L (3.6-5.0) 12/15/18 04:27 Chloride 97.9 mmol/L (98-107) L 12/15/18 04:27 Carbon Dioxide 17 mmol/L (22-30) L 12/15/18 04:27 25 mmol/L 12/15/18 04:27 BUN 75 mg/dL (7-17) H 12/15/18 04:27 2.7 mg/dL (0.7-1.2) H 12/15/18 04:27 Estimated GFR 17 ml/min 12/15/18 04:27 28 % 12/15/18 04:27 Glucose 194 mg/dL (65-100) H 12/15/18 04:27 POC Glucose 216 (70-105) H 12/15/18 07:58 5.7 % (4-6) 12/11/18 08:06 Lactic Acid 1.50 mmol/L (0.7-2.0) 12/11/18 08:06 Calcium 8.3 mg/dL (8.4-10.2) L 12/15/18 04:27 Phosphorus 6.10 mg/dL (2.5-4.5) H 12/12/18 06:58 Magnesium 2.60 mg/dL (1.7-2.3) H 12/12/18 06:58 Iron 14 ug/dL (37-170) L 12/12/18 06:58 TIBC 269 mcg/dL (250-450) 12/12/18 06:58 % Saturation 5.20 % 12/12/18 06:58 235 mg/dl (192-382) 12/12/18 06:58 0.20 mg/dL (0.1-1.2) 12/13/18 04:49 < 0.2 mg/dL (0-0.2) 12/11/18 08:06 0.1 mg/dL 12/11/18 08:06 AST 48 units/L (5-40) H 12/13/18 04:49 ALT 88 units/L (7-56) H 12/13/18 04:49 104 units/L (35-129) 12/13/18 04:49 41 units/L (30-135) 12/11/18 08:06 CK-MB (CK-2) 3.1 ng/mL (0.0-4.0) 12/11/18 08:06 CK-MB (CK-2) Rel Index 7.5 (0-4) H 12/11/18 08:06 0.048 ng/mL (0.00-0.029) H 12/11/18 08:06 NT-Pro-B Natriuret Pep > 87851 pg/mL (0-900) H 12/11/18 08:06 6.3 g/dL (6.3-8.2) 12/13/18 04:49 3.2 g/dL (3.9-5) L 12/13/18 04:49 1.0 % 12/13/18 04:49 Triglycerides 67 mg/dL (2-149) 12/11/18 08:06 Cholesterol 151 mg/dL (50-199) 12/11/18 08:06 67 mg/dL (50-130) 12/11/18 08:06 77 mg/dL (40-59) H 12/11/18 08:06 1.96 % 12/11/18 08:06 Vitamin B12 686.2 pg/mL (211-911) 12/12/18 06:58 13.48 ng/mL (7.3-26.0) 12/14/18 13:06 TSH 1.010 mlU/mL (0.270-4.200) 12/11/18 08:06 Free T4 1.55 ng/dL (0.76-1.46) H 12/11/18 08:06 Yellow (Yellow) 12/11/18 12:59 Slightly-cloudy (Clear) 12/11/18 12:59 5.0 (5.0-7.0) 12/11/18 12:59 Ur Specific [place] 1.015 (1.003-1.030) 12/11/18 12:59 30 mg/dl mg/dL (Negative) 12/11/18 12:59 Neg mg/dL (Negative) 12/11/18 12:59 Neg mg/dL (Negative) 12/11/18 12:59 Neg (Negative) 12/11/18 12:59 Neg (Negative) 12/11/18 12:59 Neg (Negative) 12/11/18 12:59 < 2.0 mg/dL (<2.0) 12/11/18 12:59 Ur Leukocyte Esterase Mod (Negative) 12/11/18 12:59 15.0 /HPF (0.0-6.0) H 12/11/18 12:59 1.0 /HPF (0.0-6.0) 12/11/18 12:59 U Epithel Cells (Auto) 2.0 /HPF (0-13.0) 12/11/18 12:59 Hyaline Casts 1 /LPF 12/11/18 12:59 Few /HPF 12/11/18 12:59 Active Medications - Current Medications Current Medications: Generic Name Dose Route Start Last Admin Trade Name Freq PRN Reason Stop Dose Admin Acetaminophen 650 mg 12/11/18 09:48 12/15/18 00:02 Tylenol PO 650 mg Q4H PRN Administration Pain MILD(1-3)/Fever >100.5/JOAQUIN Albuterol 2.5 mg 12/11/18 09:51 12/13/18 03:51 Proventil IH 2.5 mg Q4HRT PRN Administration Shortness Of Breath Albuterol/Ipratropium 1 ampul 12/11/18 12:00 12/15/18 08:01 Duoneb *Not For Prn Use* IH 1 ampul QIDRT ABDIFATAH Administration Alprazolam 0.5 mg 12/12/18 11:29 12/15/18 06:39 Xanax PO 0.5 mg Q8H PRN Administration Anxiety Arformoterol Tartrate 15 mcg 12/12/18 08:00 12/15/18 08:01 Brovana Nebu IH 15 mcg Q12HRT ABDIFATAH Administration Budesonide 0.5 mg 12/12/18 08:00 12/15/18 08:01 Pulmicort IH 0.5 mg Q12HRT ABDIFATAH Administration Diltiazem HCl 240 mg 12/12/18 10:00 12/14/18 09:42 Cardizem Cd PO 240 mg QDAY ABDIFATAH Administration Doxazosin Mesylate 1 mg 12/12/18 22:00 12/14/18 21:31 Cardura PO 1 mg QHS ABDIFATAH Administration Enoxaparin Sodium 30 mg 12/11/18 10:00 12/14/18 09:42 Lovenox SUB-Q 30 mg QDAY ABDIFATAH Administration Ferrous Sulfate 325 mg 12/12/18 22:00 12/14/18 21:31 Feosol PO 325 mg BID ABDIFATAH Administration Azithromycin 500 mg/ Sodium 250 mls @ 250 mls/hr 12/11/18 10:00 12/14/18 12:17 Chloride IV 250 mls/hr Q24HR ABDIFATAH Administration Ceftriaxone Sodium 2 gm in 100 mls @ 200 mls/hr 12/11/18 10:00 12/14/18 09:43 Rocephin/Ns 2 Gm/100 Ml IV 200 mls/hr Q24HR ABDIFATAH Administration Protocol Sodium Chloride 1,000 mls @ 50 mls/hr 12/12/18 12:00 12/15/18 06:41 Nacl 0.9% 1000 Ml IV 50 mls/hr DIRECT ABDIFATAH Administration Insulin Human Lispro 0 unit 12/12/18 07:30 12/14/18 21:33 Humalog SUB-Q 3 unit ACHS ABDIFATAH Administration Protocol Loratadine/Pseudoephedrine Sulfate 1 each 12/13/18 10:00 12/14/18 10:11 Claritin-D 24hr PO 1 each Q24HR ABDIFATAH Administration Methylprednisolone Sodium Succinate 40 mg 12/15/18 08:31 Solu-Medrol IV Q6HR ABDIFATAH Ondansetron HCl 4 mg 12/11/18 09:48 Zofran IV Q8H PRN Nausea And Vomiting Sodium Chloride 10 ml 12/11/18 10:00 12/14/18 21:43 Sodium Chloride Flush Syringe 10 Ml IV 10 ml BID ABDIFATAH Administration Sodium Chloride 10 ml 12/11/18 09:48 Sodium Chloride Flush Syringe 10 Ml IV PRN PRN LINE FLUSH Nutrition/Malnutrition Assess - Dietary Evaluation Nutrition/Malnutrition Findings: Nutrition Notes Start: 12/12/18 16:00 Freq: Status: Active Protocol: Document 12/12/18 16:00 RM (Rec: 12/12/18 16:08 RM [email or web address]) Nutrition Notes Need for Assessment generated from: MD Order Initial or Follow up Assessment Current Diagnosis Acute Kidney Injury,COPD, Diabetes,Hypertension Other Pertinent Diagnosis UTI, Sacral PU Current Diet Cardiac Labs/Tests Reviewed Pertinent Medications Solu-Medrol Height 5 ft 6 in Weight 61.7 kg Usual Body Weight 62.73 kg [place] Body Weight (kg) 59.09 BMI 21.9 Subjective/Other Information Consulted for nutrition recommendation. Screened for malnutrition risk and skin risk. Pt and pt son in room at time of visit. Pt son answered most of questions on behalf of pt. Stated that [employer] pt appetite was poor and that she ate 3 small meals daily e.g: half cup of cereal, pb&j sandwich, fortify ONS, etc. Stated that pt ate half of her breakfast today. Admitted to pt tiring when chewing food. Stated UBW was 136-140 lbs 3 months ago. Noted temporal wasting. Percent of energy/protein needs met: 74%/56% Burn Absent Trauma Absent #1 Nutrition Diagnosis Malnutrition Etiology decreased appetite, COPD As Evidenced by Signs and Symptoms pt son statement that [employer] TE[employer]IST pt ate 3 small meals daily, temporal wasting Is patient on ventilator? No Is Patient Ambulatory and/or Out of Bed Yes REE-([facility]-ambulatory/OOB) [ 9964.875 [id number]] Calculation Used for Recommendations [facility] Additional Notes Protein Needs: 74-93g (1.2-1. 5g/kg) Fluid needs: 1 ml/kcal Nutrition Intervention Change Diet Order: Cardiac,Consistent CHO, Mech soft w/ground meat Add Supplement/Snack (indicate name/kcal Glucerna 1 daily /protein ) Provides kCal: 220 Provides Protein (gm) 10 Goal #1 Meet at least 75% of calorie and protein needs via PO and ONS intakes Anticipated Discharge Needs: Cardiac/Consistent CHO diet Follow-Up By: 12/19/18 Additional Comments Follow for PO and ONS intakes
--- NOTE | 2018-12-15 08:58 | Progress Note ---
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 followed by vascular as an outpatient DNR/AND status Conservative cardiac management. Subjective Date of service: 12/15/18 Interval history: No interval changes. Family member at bedside. Objective Vital Signs Temp Pulse Pulse Resp Resp BP BP 12/15/18 08:20 117 H 20 12/15/18 08:05 12/15/18 08:00 117 H 18 12/15/18 07:54 96.3 F L 119 H 18 149/77 12/15/18 03:40 97.5 F L 116 H 20 103/71 12/14/18 23:16 97.3 F L 60 19 137/75 12/14/18 21:31 114 H 12/14/18 21:25 114 H 22 12/14/18 20:59 12/14/18 20:58 114 H 20 12/14/18 19:11 97.5 F L 113 H 19 121/66 12/14/18 16:57 98.0 F 112 H 22 112/62 12/14/18 14:30 108 H 20 12/14/18 14:12 98 H 18 12/14/18 09:42 115 H 132/74 Pulse Ox 12/15/18 08:20 12/15/18 08:05 98 12/15/18 08:00 12/15/18 07:54 93 12/15/18 03:40 97 12/14/18 23:16 99 12/14/18 21:31 12/14/18 21:25 12/14/18 20:59 94 12/14/18 20:58 12/14/18 19:11 98 12/14/18 16:57 96 12/14/18 14:30 12/14/18 14:12 12/14/18 09:42 - Physical Examination General: No Apparent Distress Cardiac: Positive: Tachycardia Lungs: Positive: Decreased Breath Sounds, Wheezes Neuro: Positive: Weakness Extremities: Absent: edema - Labs and Meds Comprehensive Metabolic Panel 12/15/18 Range/Units 04:27 Sodium 135 L (137-145) mmol/L Potassium 4.9 (3.6-5.0) mmol/L Chloride 97.9 L (98-107) mmol/L Carbon Dioxide 17 L (22-30) mmol/L BUN 75 H (7-17) mg/dL Creatinine 2.7 H (0.7-1.2) mg/dL Glucose 194 H (65-100) mg/dL Calcium 8.3 L (8.4-10.2) mg/dL
[2018-12-15] MEDS: ROCEPHIN/NS 2 GM/100 ML 2 GM/100 ML BAG IV SCH (10:28)
[2018-12-15] MEDS: CARDIZEM CD PO SCH (10:28)
[2018-12-15] MEDS: FEOSOL PO SCH ×2 (10:30→21:10)
[2018-12-15] MEDS: SODIUM CHLORIDE FLUSH SYRINGE 10 ML IV SCH ×2 (10:36→21:10)
[2018-12-15] MEDS: LOVENOX SUB-Q SCH (10:45)
[2018-12-15] MEDS: CLARITIN-D 24HR PO SCH (10:52)
[2018-12-15] MEDS: ZITHROMAX 500 MG in NACL 0.9% 250ML 250 ML IV SCH (10:53)
--- NOTE | 2018-12-15 12:02 | Progress Note ---
Assessment and Plan 78 y/o female with acute exacerbation of COPD, Worsening renal failure and persistent shortness of breath. 1. Patient is already on BID long acting bronchodilator therapy 2. Agree with PRN regimen as ordered 3. Continue steroids at q6 hour dosing. 4. Hopeful renal spoke with them this am about prognosis. 5. Family is preparing for possible hospice, palliative care. At this point, feel this is most appropriate Subjective Date of service: 12/15/18 Interval history: Spoke with renal yesterday who states that renal function is not improving. Clinically patient is not improving either. Patient doing worse today. Now on PPV. Blood gas shows metabolic acidosis from worsening renal function. Objective Vital Signs - 12hr 12/15/18 12/15/18 12/15/18 03:40 07:54 08:00 Temperature 97.5 F L 96.3 F L Pulse Rate 116 H 119 H Pulse Rate [ 117 H Anterior Bilateral Throughout] Respiratory 20 18 Rate Respiratory 18 Rate [Anterior Bilateral Throughout] Blood Pressure 103/71 149/77 O2 Sat by Pulse 97 93 Oximetry 12/15/18 12/15/18 12/15/18 08:05 08:20 11:00 Temperature Pulse Rate 117 H Pulse Rate [ 117 H Anterior Bilateral Throughout] Respiratory 14 Rate Respiratory 20 Rate [Anterior Bilateral Throughout] Blood Pressure O2 Sat by Pulse 98 98 Oximetry Constitutional: asleep, appears uncomfortable Eyes: non-icteric ENT: oropharynx moist Neck: supple Effort: mildly labored Ascultation: Bilateral: rales Percussion: Bilateral: not dull Tactile fremitus: Bilateral: normal Cardiovascular: regular rate and rhythm Gastrointestinal: soft, non-tender CBC and BMP: 12/14/18 05:11 12/15/18 04:27 ABG, PT/INR, D-dimer: ABG POC ABG pH 7.341 (7.35-7.45) L 12/13/18 15:52 POC ABG pCO2 41.4 (35-45) 12/13/18 15:52 POC ABG pO2 95 (80-105) 12/13/18 15:52 POC ABG HCO3 22.4 (22-26 mml/L) 12/13/18 15:52 POC ABG Total CO2 24 (23-27mmol/L) 12/13/18 15:52 POC ABG O2 Sat 97 12/13/18 15:52 PT/INR, D-dimer PT 16.6 Sec. (12.2-14.9) H 12/11/18 08:06 INR 1.26 (0.87-1.13) H 12/11/18 08:06 Abnormal lab findings: Abnormal Labs 12/11/18 12/11/18 12/11/18 08:06 08:06 08:06 WBC RBC 3.44 L Hgb 8.4 L Hct 25.6 L MCV 74 L MCH 25 L RDW 17.2 H Lymph % (Auto) 5.9 L Lymph # 0.6 L Seg Neutrophils % 88.3 H Seg Neuts % (Manual) Lymphocytes % (Manual) Nucleated RBC % Seg Neutrophils # 9.5 H Seg Neutrophils # Man Lymphocytes # (Manual) PT 16.6 H INR 1.26 H POC ABG pH Sodium Potassium Chloride Carbon Dioxide BUN 28 H Creatinine 1.9 H Glucose 190 H POC Glucose Calcium Phosphorus Magnesium Iron AST 70 H ALT 61 H CK-MB (CK-2) Rel Index 7.5 H Troponin T 0.048 H NT-Pro-B Natriuret Pep > 00704 H Albumin 3.1 L HDL Cholesterol 77 H Free T4 Urine WBC (Auto) 12/11/18 12/11/18 12/12/18 08:06 12:59 06:58 WBC RBC Hgb Hct MCV MCH RDW Lymph % (Auto) Lymph # Seg Neutrophils % Seg Neuts % (Manual) Lymphocytes % (Manual) Nucleated RBC % Seg Neutrophils # Seg Neutrophils # Man Lymphocytes # (Manual) PT INR POC ABG pH Sodium Potassium Chloride Carbon Dioxide BUN Creatinine Glucose POC Glucose Calcium Phosphorus Magnesium Iron 14 L AST ALT CK-MB (CK-2) Rel Index Troponin T NT-Pro-B Natriuret Pep Albumin HDL Cholesterol Free T4 1.55 H Urine WBC (Auto) 15.0 H 12/12/18 12/12/18 12/12/18 06:58 07:39 12:34 WBC RBC Hgb Hct MCV MCH RDW Lymph % (Auto) Lymph # Seg Neutrophils % Seg Neuts % (Manual) Lymphocytes % (Manual) Nucleated RBC % Seg Neutrophils # Seg Neutrophils # Man Lymphocytes # (Manual) PT INR POC ABG pH Sodium Potassium Chloride Carbon Dioxide BUN 38 H Creatinine 2.0 H Glucose 224 H POC Glucose 231 H 298 H Calcium Phosphorus 6.10 H Magnesium 2.60 H Iron AST 72 H ALT 99 H CK-MB (CK-2) Rel Index Troponin T NT-Pro-B Natriuret Pep Albumin 3.5 L HDL Cholesterol Free T4 Urine WBC (Auto) 12/12/18 12/12/18 12/13/18 18:31 21:19 04:49 WBC 11.5 H RBC 3.42 L Hgb 8.1 L Hct 25.6 L MCV 75 L MCH 24 L RDW 17.6 H Lymph % (Auto) Lymph # Seg Neutrophils % Seg Neuts % (Manual) 95.0 H Lymphocytes % (Manual) 2.0 L Nucleated RBC % Seg Neutrophils # Seg Neutrophils # Man 10.9 H Lymphocytes # (Manual) 0.2 L PT INR POC ABG pH Sodium Potassium Chloride Carbon Dioxide BUN Creatinine Glucose POC Glucose 240 H 208 H Calcium Phosphorus Magnesium Iron AST ALT CK-MB (CK-2) Rel Index Troponin T NT-Pro-B Natriuret Pep Albumin HDL Cholesterol Free T4 Urine WBC (Auto) 12/13/18 12/13/18 12/13/18 04:49 07:53 12:42 WBC RBC Hgb Hct MCV MCH RDW Lymph % (Auto) Lymph # Seg Neutrophils % Seg Neuts % (Manual) Lymphocytes % (Manual) Nucleated RBC % Seg Neutrophils # Seg Neutrophils # Man Lymphocytes # (Manual) PT INR POC ABG pH Sodium Potassium Chloride Carbon Dioxide BUN 53 H Creatinine 2.3 H Glucose 198 H POC Glucose 213 H 337 H Calcium Phosphorus Magnesium Iron AST 48 H ALT 88 H CK-MB (CK-2) Rel Index Troponin T NT-Pro-B Natriuret Pep Albumin 3.2 L HDL Cholesterol Free T4 Urine WBC (Auto) 12/13/18 12/13/18 12/13/18 15:52 17:57 21:27 WBC RBC Hgb Hct MCV MCH RDW Lymph % (Auto) Lymph # Seg Neutrophils % Seg Neuts % (Manual) Lymphocytes % (Manual) Nucleated RBC % Seg Neutrophils # Seg Neutrophils # Man Lymphocytes # (Manual) PT INR POC ABG pH 7.341 L Sodium Potassium Chloride Carbon Dioxide BUN Creatinine Glucose POC Glucose 152 H 177 H Calcium Phosphorus Magnesium Iron AST ALT CK-MB (CK-2) Rel Index Troponin T NT-Pro-B Natriuret Pep Albumin HDL Cholesterol Free T4 Urine WBC (Auto) 12/14/18 12/14/18 12/14/18 05:11 05:11 08:45 WBC RBC 3.44 L Hgb 8.3 L Hct 25.9 L MCV 75 L MCH 24 L RDW 18.0 H Lymph % (Auto) Lymph # Seg Neutrophils % Seg Neuts % (Manual) 91.0 H Lymphocytes % (Manual) 4.0 L Nucleated RBC % 1.0 H Seg Neutrophils # Seg Neutrophils # Man 8.9 H Lymphocytes # (Manual) 0.4 L PT INR POC ABG pH Sodium 135 L Potassium 5.1 H Chloride 97.7 L Carbon Dioxide 19 L BUN 65 H Creatinine 2.5 H Glucose 177 H POC Glucose 179 H Calcium 8.2 L Phosphorus Magnesium Iron AST ALT CK-MB (CK-2) Rel Index Troponin T NT-Pro-B Natriuret Pep Albumin HDL Cholesterol Free T4 Urine WBC (Auto) 12/14/18 12/14/18 12/14/18 12:43 16:59 20:56 WBC RBC Hgb Hct MCV MCH RDW Lymph % (Auto) Lymph # Seg Neutrophils % Seg Neuts % (Manual) Lymphocytes % (Manual) Nucleated RBC % Seg Neutrophils # Seg Neutrophils # Man Lymphocytes # (Manual) PT INR POC ABG pH Sodium Potassium Chloride Carbon Dioxide BUN Creatinine Glucose POC Glucose 207 H 228 H 228 H Calcium Phosphorus Magnesium Iron AST ALT CK-MB (CK-2) Rel Index Troponin T NT-Pro-B Natriuret Pep Albumin HDL Cholesterol Free T4 Urine WBC (Auto) 12/15/18 12/15/18 04:27 07:58 WBC RBC Hgb Hct MCV MCH RDW Lymph % (Auto) Lymph # Seg Neutrophils % Seg Neuts % (Manual) Lymphocytes % (Manual) Nucleated RBC % Seg Neutrophils # Seg Neutrophils # Man Lymphocytes # (Manual) PT INR POC ABG pH Sodium 135 L Potassium Chloride 97.9 L Carbon Dioxide 17 L BUN 75 H Creatinine 2.7 H Glucose 194 H POC Glucose 216 H Calcium 8.3 L Phosphorus Magnesium Iron AST ALT CK-MB (CK-2) Rel Index Troponin T NT-Pro-B Natriuret Pep Albumin HDL Cholesterol Free T4 Urine WBC (Auto)
[2018-12-15] MEDS ORDERED: ATIVAN IV PRN (18:11)
[2018-12-15] MEDS: HumaLOG SUB-Q SCH ×3 (20:31→23:08)
[2018-12-15] MEDS: CARDURA PO SCH (21:09)
[2018-12-16] MEDS: SOLU-Medrol IV SCH ×3 (05:46→18:00)
[2018-12-16] MEDS: HumaLOG SUB-Q SCH ×3 (07:40→16:35)
[2018-12-16 08:26] LABS: Calcium 8.4 mg/dL (8.4-10.2)
[2018-12-16] MEDS: BROVANA NEBU IH SCH (08:51)
[2018-12-16] MEDS: PULMICORT IH SCH (08:52)
[2018-12-16] MEDS: DUONEB *Not for PRN Use IH SCH ×4 (08:52→14:59)
--- NOTE | 2018-12-16 10:00 | Progress Note ---
Assessment and Plan 1. Acute exacerbation of chronic obstructive pulmonary disease 2. Multifocal atrial tachycardia 3. Acute on chronic renal failure 4. Essential hypertension 5. Abdominal aortic aneurysm 4.5 cm. Plan. Continue present cardiac management. Subjective Date of service: 12/16/18 Interval history: Patient lethargic on BiPAP machine Objective Vital Signs Temp Pulse Pulse Pulse Pulse Resp Resp 12/16/18 09:13 114 H 14 12/16/18 09:08 114 H 16 12/16/18 08:50 111 H 16 12/16/18 08:01 104 H 104 H 24 12/16/18 06:08 97.3 F L 94 H 17 12/16/18 00:10 97.4 F L 102 H 16 12/15/18 22:00 117 H 12/15/18 20:42 12/15/18 20:40 12/15/18 20:32 106 H 106 H 22 12/15/18 20:22 113 H 17 12/15/18 20:08 119 H 22 12/15/18 19:37 98.0 F 117 H 18 12/15/18 17:15 117 H 15 12/15/18 16:51 117 H 12/15/18 12:46 118 H 24 12/15/18 12:20 97.0 F L 118 H 18 12/15/18 12:19 117 H 24 12/15/18 11:00 117 H 14 12/15/18 10:00 110 H 110 H 24 BP Pulse Ox 12/16/18 09:13 12/16/18 09:08 100 12/16/18 08:50 12/16/18 08:01 94 12/16/18 06:08 101/73 97 12/16/18 00:10 88/60 94 12/15/18 22:00 12/15/18 20:42 98 12/15/18 20:40 98 12/15/18 20:32 98 12/15/18 20:22 12/15/18 20:08 12/15/18 19:37 119/76 99 12/15/18 17:15 12/15/18 16:51 98 12/15/18 12:46 12/15/18 12:20 120/65 99 12/15/18 12:19 12/15/18 11:00 98 12/15/18 10:00 97 - Physical Examination General: Other (Patient on BiPAP machine) HEENT: Positive: PERRL Neck: Positive: trachea midline, JVD/HJR Cardiac: Positive: Regular Rate, S1/S2, PMI, Laterally Displaced. Negative: S3, S4 Lungs: Positive: Decreased Breath Sounds, Rhonchi. Negative: Wheezes Neuro: Positive: Weakness Abdomen: Positive: Soft, Active Bowel Sounds Extremities: Absent: edema - Labs and Meds Comprehensive Metabolic Panel 12/16/18 Range/Units 07:46 Sodium 135 L (137-145) mmol/L Potassium 5.1 H (3.6-5.0) mmol/L Chloride 97.3 L (98-107) mmol/L Carbon Dioxide 18 L (22-30) mmol/L BUN 83 H (7-17) mg/dL Creatinine 2.7 H (0.7-1.2) mg/dL Glucose 190 H (65-100) mg/dL Calcium 8.4 (8.4-10.2) mg/dL - Imaging and Cardiology EKG: report reviewed
[2018-12-16] MEDS: CLARITIN-D 24HR PO SCH (10:11)
[2018-12-16] MEDS: CARDIZEM CD PO SCH (10:11)
[2018-12-16] MEDS: FEOSOL PO SCH (10:12)
[2018-12-16] MEDS: ROCEPHIN/NS 2 GM/100 ML 2 GM/100 ML BAG IV SCH (10:12)
[2018-12-16] MEDS: LOVENOX SUB-Q SCH (10:13)
[2018-12-16] MEDS: SODIUM CHLORIDE FLUSH SYRINGE 10 ML IV SCH (10:33)
--- NOTE | 2018-12-16 11:55 | Progress Note ---
Assessment and Plan 78 y/o female with acute exacerbation of COPD, Worsening renal failure and persistent shortness of breath. 1. Patient is already on BID long acting bronchodilator therapy 2. Agree with PRN regimen as ordered 3. Continue steroids at q6 hour dosing. 4. Family is preparing for possible hospice, palliative care. At this point, feel this is most appropriate. Await their decision on inpatient vs home Subjective Date of service: 12/16/18 Interval history: No change clinically Objective Vital Signs - 12hr 12/16/18 12/16/18 12/16/18 00:10 06:08 08:01 Temperature 97.4 F L 97.3 F L Pulse Rate 102 H 94 H Pulse Rate [ Anterior Bilateral Throughout] Pulse Rate [ 104 H Apical] Pulse Rate [ 104 H Right Radial] Respiratory 16 17 24 Rate Respiratory Rate [Anterior Bilateral Throughout] Blood Pressure 88/60 101/73 O2 Sat by Pulse 94 97 94 Oximetry 12/16/18 12/16/18 12/16/18 08:50 09:08 09:13 Temperature Pulse Rate 114 H Pulse Rate [ 111 H 114 H Anterior Bilateral Throughout] Pulse Rate [ Apical] Pulse Rate [ Right Radial] Respiratory 16 Rate Respiratory 16 14 Rate [Anterior Bilateral Throughout] Blood Pressure O2 Sat by Pulse 100 Oximetry Constitutional: asleep, appears uncomfortable Eyes: non-icteric ENT: oropharynx moist Neck: supple Effort: mildly labored Ascultation: Bilateral: rales Percussion: Bilateral: not dull Tactile fremitus: Bilateral: normal Cardiovascular: regular rate and rhythm Gastrointestinal: soft, non-tender CBC and BMP: 12/14/18 05:11 12/16/18 07:46 ABG, PT/INR, D-dimer: ABG POC ABG pH 7.289 (7.35-7.45) L 12/15/18 12:00 POC ABG pCO2 41.2 (35-45) 12/15/18 12:00 POC ABG pO2 129 (80-105) H 12/15/18 12:00 POC ABG HCO3 19.8 (22-26 mml/L) 12/15/18 12:00 POC ABG Total CO2 21 (23-27mmol/L) 12/15/18 12:00 POC ABG O2 Sat 99 12/15/18 12:00 PT/INR, D-dimer PT 16.6 Sec. (12.2-14.9) H 12/11/18 08:06 INR 1.26 (0.87-1.13) H 12/11/18 08:06 Abnormal lab findings: Abnormal Labs 12/11/18 12/11/18 12/11/18 08:06 08:06 08:06 WBC RBC 3.44 L Hgb 8.4 L Hct 25.6 L MCV 74 L MCH 25 L RDW 17.2 H Lymph % (Auto) 5.9 L Lymph # 0.6 L Seg Neutrophils % 88.3 H Seg Neuts % (Manual) Lymphocytes % (Manual) Nucleated RBC % Seg Neutrophils # 9.5 H Seg Neutrophils # Man Lymphocytes # (Manual) PT 16.6 H INR 1.26 H POC ABG pH POC ABG pO2 Sodium Potassium Chloride Carbon Dioxide BUN 28 H Creatinine 1.9 H Glucose 190 H POC Glucose Calcium Phosphorus Magnesium Iron AST 70 H ALT 61 H CK-MB (CK-2) Rel Index 7.5 H Troponin T 0.048 H NT-Pro-B Natriuret Pep > 45371 H Albumin 3.1 L HDL Cholesterol 77 H Free T4 Urine WBC (Auto) 12/11/18 12/11/18 12/12/18 08:06 12:59 06:58 WBC RBC Hgb Hct MCV MCH RDW Lymph % (Auto) Lymph # Seg Neutrophils % Seg Neuts % (Manual) Lymphocytes % (Manual) Nucleated RBC % Seg Neutrophils # Seg Neutrophils # Man Lymphocytes # (Manual) PT INR POC ABG pH POC ABG pO2 Sodium Potassium Chloride Carbon Dioxide BUN Creatinine Glucose POC Glucose Calcium Phosphorus Magnesium Iron 14 L AST ALT CK-MB (CK-2) Rel Index Troponin T NT-Pro-B Natriuret Pep Albumin HDL Cholesterol Free T4 1.55 H Urine WBC (Auto) 15.0 H 12/12/18 12/12/18 12/12/18 06:58 07:39 12:34 WBC RBC Hgb Hct MCV MCH RDW Lymph % (Auto) Lymph # Seg Neutrophils % Seg Neuts % (Manual) Lymphocytes % (Manual) Nucleated RBC % Seg Neutrophils # Seg Neutrophils # Man Lymphocytes # (Manual) PT INR POC ABG pH POC ABG pO2 Sodium Potassium Chloride Carbon Dioxide BUN 38 H Creatinine 2.0 H Glucose 224 H POC Glucose 231 H 298 H Calcium Phosphorus 6.10 H Magnesium 2.60 H Iron AST 72 H ALT 99 H CK-MB (CK-2) Rel Index Troponin T NT-Pro-B Natriuret Pep Albumin 3.5 L HDL Cholesterol Free T4 Urine WBC (Auto) 12/12/18 12/12/18 12/13/18 18:31 21:19 04:49 WBC 11.5 H RBC 3.42 L Hgb 8.1 L Hct 25.6 L MCV 75 L MCH 24 L RDW 17.6 H Lymph % (Auto) Lymph # Seg Neutrophils % Seg Neuts % (Manual) 95.0 H Lymphocytes % (Manual) 2.0 L Nucleated RBC % Seg Neutrophils # Seg Neutrophils # Man 10.9 H Lymphocytes # (Manual) 0.2 L PT INR POC ABG pH POC ABG pO2 Sodium Potassium Chloride Carbon Dioxide BUN Creatinine Glucose POC Glucose 240 H 208 H Calcium Phosphorus Magnesium Iron AST ALT CK-MB (CK-2) Rel Index Troponin T NT-Pro-B Natriuret Pep Albumin HDL Cholesterol Free T4 Urine WBC (Auto) 12/13/18 12/13/18 12/13/18 04:49 07:53 12:42 WBC RBC Hgb Hct MCV MCH RDW Lymph % (Auto) Lymph # Seg Neutrophils % Seg Neuts % (Manual) Lymphocytes % (Manual) Nucleated RBC % Seg Neutrophils # Seg Neutrophils # Man Lymphocytes # (Manual) PT INR POC ABG pH POC ABG pO2 Sodium Potassium Chloride Carbon Dioxide BUN 53 H Creatinine 2.3 H Glucose 198 H POC Glucose 213 H 337 H Calcium Phosphorus Magnesium Iron AST 48 H ALT 88 H CK-MB (CK-2) Rel Index Troponin T NT-Pro-B Natriuret Pep Albumin 3.2 L HDL Cholesterol Free T4 Urine WBC (Auto) 12/13/18 12/13/18 12/13/18 15:52 17:57 21:27 WBC RBC Hgb Hct MCV MCH RDW Lymph % (Auto) Lymph # Seg Neutrophils % Seg Neuts % (Manual) Lymphocytes % (Manual) Nucleated RBC % Seg Neutrophils # Seg Neutrophils # Man Lymphocytes # (Manual) PT INR POC ABG pH 7.341 L POC ABG pO2 Sodium Potassium Chloride Carbon Dioxide BUN Creatinine Glucose POC Glucose 152 H 177 H Calcium Phosphorus Magnesium Iron AST ALT CK-MB (CK-2) Rel Index Troponin T NT-Pro-B Natriuret Pep Albumin HDL Cholesterol Free T4 Urine WBC (Auto) 12/14/18 12/14/18 12/14/18 05:11 05:11 08:45 WBC RBC 3.44 L Hgb 8.3 L Hct 25.9 L MCV 75 L MCH 24 L RDW 18.0 H Lymph % (Auto) Lymph # Seg Neutrophils % Seg Neuts % (Manual) 91.0 H Lymphocytes % (Manual) 4.0 L Nucleated RBC % 1.0 H Seg Neutrophils # Seg Neutrophils # Man 8.9 H Lymphocytes # (Manual) 0.4 L PT INR POC ABG pH POC ABG pO2 Sodium 135 L Potassium 5.1 H Chloride 97.7 L Carbon Dioxide 19 L BUN 65 H Creatinine 2.5 H Glucose 177 H POC Glucose 179 H Calcium 8.2 L Phosphorus Magnesium Iron AST ALT CK-MB (CK-2) Rel Index Troponin T NT-Pro-B Natriuret Pep Albumin HDL Cholesterol Free T4 Urine WBC (Auto) 12/14/18 12/14/18 12/14/18 12:43 16:59 20:56 WBC RBC Hgb Hct MCV MCH RDW Lymph % (Auto) Lymph # Seg Neutrophils % Seg Neuts % (Manual) Lymphocytes % (Manual) Nucleated RBC % Seg Neutrophils # Seg Neutrophils # Man Lymphocytes # (Manual) PT INR POC ABG pH POC ABG pO2 Sodium Potassium Chloride Carbon Dioxide BUN Creatinine Glucose POC Glucose 207 H 228 H 228 H Calcium Phosphorus Magnesium Iron AST ALT CK-MB (CK-2) Rel Index Troponin T NT-Pro-B Natriuret Pep Albumin HDL Cholesterol Free T4 Urine WBC (Auto) 12/15/18 12/15/18 12/15/18 04:27 07:58 11:55 WBC RBC Hgb Hct MCV MCH RDW Lymph % (Auto) Lymph # Seg Neutrophils % Seg Neuts % (Manual) Lymphocytes % (Manual) Nucleated RBC % Seg Neutrophils # Seg Neutrophils # Man Lymphocytes # (Manual) PT INR POC ABG pH POC ABG pO2 Sodium 135 L Potassium Chloride 97.9 L Carbon Dioxide 17 L BUN 75 H Creatinine 2.7 H Glucose 194 H POC Glucose 216 H 202 H Calcium 8.3 L Phosphorus Magnesium Iron AST ALT CK-MB (CK-2) Rel Index Troponin T NT-Pro-B Natriuret Pep Albumin HDL Cholesterol Free T4 Urine WBC (Auto) 12/15/18 12/15/18 12/15/18 12:00 17:24 21:41 WBC RBC Hgb Hct MCV MCH RDW Lymph % (Auto) Lymph # Seg Neutrophils % Seg Neuts % (Manual) Lymphocytes % (Manual) Nucleated RBC % Seg Neutrophils # Seg Neutrophils # Man Lymphocytes # (Manual) PT INR POC ABG pH 7.289 L POC ABG pO2 129 H Sodium Potassium Chloride Carbon Dioxide BUN Creatinine Glucose POC Glucose 219 H 190 H Calcium Phosphorus Magnesium Iron AST ALT CK-MB (CK-2) Rel Index Troponin T NT-Pro-B Natriuret Pep Albumin HDL Cholesterol Free T4 Urine WBC (Auto) 12/16/18 12/16/18 07:46 07:50 WBC RBC Hgb Hct MCV MCH RDW Lymph % (Auto) Lymph # Seg Neutrophils % Seg Neuts % (Manual) Lymphocytes % (Manual) Nucleated RBC % Seg Neutrophils # Seg Neutrophils # Man Lymphocytes # (Manual) PT INR POC ABG pH POC ABG pO2 Sodium 135 L Potassium 5.1 H Chloride 97.3 L Carbon Dioxide 18 L BUN 83 H Creatinine 2.7 H Glucose 190 H POC Glucose 212 H Calcium Phosphorus Magnesium Iron AST ALT CK-MB (CK-2) Rel Index Troponin T NT-Pro-B Natriuret Pep Albumin HDL Cholesterol Free T4 Urine WBC (Auto)
[2018-12-16 12:16] VITALS: BP 97/69
--- NOTE | 2018-12-16 13:08 | Progress Note ---
Assessment and Plan 1. Acute kidney injury: Likely vasomotor ROSITA in the setting of volume depletion. Renal US was negative for hydro. Renal function continue to decline. Renal prognosis is guarded. Monitor renal function. Avoid nephrotoxic agents. Meds dosage based on GFR. No dialysis per family. 2. FEN: Hyperkalemia. Metabolic acidosis. Monitor lytes. 3. Hypoxic respiratory failure: Likely from COPD exacerbation. 4. Suspected UTI. 5. Elevated Transaminases. 6. Anemia: POA. D/w multiple family members at the bedside. Overall prognosis is slim. Await transfer to Hospice. Subjective Date of service: 12/16/18 Interval history: Patient was seen and examined at the bedside. Continues to have sob. Objective - Vital Signs Vital signs: Vital Signs - 12hr 12/16/18 12/16/18 12/16/18 06:08 08:01 08:41 Temperature 97.3 F L 98.0 F Pulse Rate 94 H 113 H Pulse Rate [ Anterior Bilateral Throughout] Pulse Rate [ 104 H Apical] Pulse Rate [ 104 H Right Radial] Respiratory 17 24 16 Rate Respiratory Rate [Anterior Bilateral Throughout] Blood Pressure 101/73 97/69 O2 Sat by Pulse 97 94 99 Oximetry 12/16/18 12/16/18 12/16/18 08:50 09:08 09:13 Temperature Pulse Rate 114 H Pulse Rate [ 111 H 114 H Anterior Bilateral Throughout] Pulse Rate [ Apical] Pulse Rate [ Right Radial] Respiratory 16 Rate Respiratory 16 14 Rate [Anterior Bilateral Throughout] Blood Pressure O2 Sat by Pulse 100 Oximetry - General Appearance General appearance: well-developed, appears stated age, other (tachypneic) EENT: ATNC Neck: supple Respiratory: Present: Ronchi Cardiology: regular, S1S2, no murmurs Gastrointestinal: normoactive bowel sounds, no tenderness, no distended Integumentary: no rash Neurologic: other (barely arousable) Musculoskeletal: other (no edema) - Lab 12/14/18 05:11 12/16/18 07:46 Most recent lab results Calcium 8.4 mg/dL (8.4-10.2) 12/16/18 07:46 Phosphorus 6.10 mg/dL (2.5-4.5) H 12/12/18 06:58 Magnesium 2.60 mg/dL (1.7-2.3) H 12/12/18 06:58 Medications & Allergies - Medications Allergies/Adverse Reactions: Allergies Penicillins Adverse Reaction (Verified 12/11/18 09:40) Unknown Home Medications: Home Medications Medication Instructions Recorded Confirmed Last Taken Type ALBUTEROL Inhaler (OR & NICU) 1 puff IH Q4H PRN 12/11/18 12/11/18 Unknown History [Proair] Doxazosin [Cardura] 1 mg PO QHS 12/11/18 12/11/18 Unknown History Fluticasone/Salmeterol [Advair 1 puff IH BID 12/11/18 12/11/18 Unknown History Diskus 250-50 mcg] dilTIAZem CD [Cardizem Cd] 240 mg PO QDAY 12/11/18 12/11/18 Unknown History prednisoLONE [Millipred] 10 mg PO Q2D 12/11/18 12/11/18 Unknown History Active Medications: Generic Name Dose Route Start Last Admin Trade Name Freq PRN Reason Stop Dose Admin Acetaminophen 650 mg 12/11/18 09:48 12/15/18 00:02 Tylenol PO 650 mg Q4H PRN Administration Pain MILD(1-3)/Fever >100.5/JOAQUIN Albuterol 2.5 mg 12/11/18 09:51 12/13/18 03:51 Proventil IH 2.5 mg Q4HRT PRN Administration Shortness Of Breath Albuterol/Ipratropium 1 ampul 12/11/18 12:00 12/16/18 08:52 Duoneb *Not For Prn Use* IH Not Given QIDRT ABDIFATAH Alprazolam 0.5 mg 12/12/18 11:29 12/15/18 21:10 Xanax PO 0.5 mg Q8H PRN Administration Anxiety Arformoterol Tartrate 15 mcg 12/12/18 08:00 12/16/18 08:51 Brovana Nebu IH 15 mcg Q12HRT ABDIFATAH Administration Budesonide 0.5 mg 12/12/18 08:00 12/16/18 08:52 Pulmicort IH 0.5 mg Q12HRT ABDIFATAH Administration Diltiazem HCl 240 mg 12/12/18 10:00 12/15/18 10:28 Cardizem Cd PO 240 mg QDAY ABDIFATAH Administration Doxazosin Mesylate 1 mg 12/12/18 22:00 12/15/18 21:09 Cardura PO 1 mg QHS ABDIFATAH Administration Enoxaparin Sodium 30 mg 12/11/18 10:00 12/15/18 10:45 Lovenox SUB-Q 30 mg QDAY ABDIFATAH Administration Ferrous Sulfate 325 mg 12/12/18 22:00 12/15/18 21:10 Feosol PO Not Given BID ABDIFATAH Ceftriaxone Sodium 2 gm in 100 mls @ 200 mls/hr 12/11/18 10:00 12/15/18 10:28 Rocephin/Ns 2 Gm/100 Ml IV 200 mls/hr Q24HR ABDIFATAH Administration Protocol Insulin Human Lispro 0 unit 12/12/18 07:30 12/15/18 23:08 Humalog SUB-Q 2 unit ACHS ABDIFATAH Administration Protocol Loratadine/Pseudoephedrine Sulfate 1 each 12/13/18 10:00 12/15/18 10:52 Claritin-D 24hr PO Not Given Q24HR ABDIFATAH Lorazepam 2 mg 12/15/18 18:11 12/15/18 23:25 Ativan IV 2 mg Q4H PRN Administration Agitation Methylprednisolone Sodium Succinate 40 mg 12/15/18 12:00 12/16/18 05:46 Solu-Medrol IV 40 mg Q6HR ABDIFATAH Administration Ondansetron HCl 4 mg 12/11/18 09:48 Zofran IV Q8H PRN Nausea And Vomiting Sodium Chloride 10 ml 12/11/18 10:00 12/15/18 21:10 Sodium Chloride Flush Syringe 10 Ml IV 10 ml BID ABDIFATAH Administration Sodium Chloride 10 ml 12/11/18 09:48 Sodium Chloride Flush Syringe 10 Ml IV PRN PRN LINE FLUSH
--- NOTE | 2018-12-16 13:26 | Progress Note ---
Assessment and Plan Assessment and plan: --Acute hypoxic respiratory failure; secondary to end-stage COPD with exacerbation Patient is in acute distress today, son is at the bedside, poor prognosis --Acute exacerbation of end-stage COPD; Home oxygen dependent, oxygen O2 sats more than 90%, nebulizers IV steroids, IV antibiotics, pulmonary following very poor prognosis --Type 2 diabetes mellitus; Accu-Chek sliding scale coverage and ADA diet Insulin as needed, hemoglobin A1c 5.7, diabetic diet --Elevated BNP; normal echocardiogram, ejection fraction normal Cardiology evaluated the patient, no evidence of congestive heart --Acute kidney injury; worsening renal function, secondary to ATN Closely monitor renal function, avoid nephrotoxins, nephrology following --History of iron deficiency anemia; closely monitor H&H Transfuse as needed, iron supplements --History of GI bleed in the past; closely monitor --Mild malnutrition. Albumin 3.1-3.5, Supportive care --DVT prophylaxis; Lovenox renal dose Patient is critically ill, unable to complete sentences Using accessory muscles, Very poor Prognosis --DO NOT RESUSCITATE status Discharge plan. Case management/hospice evaluation Consults and recommendations noted Plan of care reviewed with the patient's son at the bedside and the nurse Hospitalist Physical - Constitutional Vitals: Temp Pulse Resp BP Pulse Ox 98.0 F 114 H 14 97/69 100 12/16/18 08:41 12/16/18 09:13 12/16/18 09:13 12/16/18 08:41 12/16/18 09:08 General appearance: Present: severe distress, cachectic, disheveled Results - Labs CBC & Chem 7: 12/14/18 05:11 12/16/18 07:46 Labs: Laboratory Last Values WBC 9.8 K/mm3 (4.5-11.0) 12/14/18 05:11 RBC 3.44 M/mm3 (3.65-5.03) L 12/14/18 05:11 Hgb 8.3 gm/dl (10.1-14.3) L 12/14/18 05:11 Hct 25.9 % (30.3-42.9) L 12/14/18 05:11 MCV 75 fl (79-97) L 12/14/18 05:11 MCH 24 pg (28-32) L 12/14/18 05:11 MCHC 32 % (30-34) 12/14/18 05:11 RDW 18.0 % (13.2-15.2) H 12/14/18 05:11 Plt Count 301 K/mm3 (140-440) 12/14/18 05:11 Lymph % (Auto) 5.9 % (13.4-35.0) L 12/11/18 08:06 [place] % (Auto) 5.4 % (0.0-7.3) 12/11/18 08:06 Eos % (Auto) 0.2 % (0.0-4.3) 12/11/18 08:06 Baso % (Auto) 0.2 % (0.0-1.8) 12/11/18 08:06 Lymph # 0.6 K/mm3 (1.2-5.4) L 12/11/18 08:06 [place] # 0.6 K/mm3 (0.0-0.8) 12/11/18 08:06 Eos # 0.0 K/mm3 (0.0-0.4) 12/11/18 08:06 Baso # 0.0 K/mm3 (0.0-0.1) 12/11/18 08:06 Add Manual Diff Complete 12/14/18 05:11 Total Counted 100 12/14/18 05:11 Seg Neutrophils % 88.3 % (40.0-70.0) H 12/11/18 08:06 Seg Neuts % (Manual) 91.0 % (40.0-70.0) H 12/14/18 05:11 1.0 % 12/14/18 05:11 4.0 % (13.4-35.0) L 12/14/18 05:11 Reactive Lymphs % (Man) 0 % 12/14/18 05:11 4.0 % (0.0-7.3) 12/14/18 05:11 0 % (0.0-4.3) 12/14/18 05:11 0 % (0.0-1.8) 12/14/18 05:11 0 % 12/14/18 05:11 0 % 12/14/18 05:11 0 % 12/14/18 05:11 0 % 12/14/18 05:11 Nucleated RBC % 1.0 % (0.0-0.9) H 12/14/18 05:11 Seg Neutrophils # 9.5 K/mm3 (1.8-7.7) H 12/11/18 08:06 Seg Neutrophils # Man 8.9 K/mm3 (1.8-7.7) H 12/14/18 05:11 Band Neutrophils # 0.1 K/mm3 12/14/18 05:11 0.4 K/mm3 (1.2-5.4) L 12/14/18 05:11 Abs React Lymphs (Man) 0.0 K/mm3 12/14/18 05:11 0.4 K/mm3 (0.0-0.8) 12/14/18 05:11 0.0 K/mm3 (0.0-0.4) 12/14/18 05:11 0.0 K/mm3 (0.0-0.1) 12/14/18 05:11 0.0 K/mm3 12/14/18 05:11 0.0 K/mm3 12/14/18 05:11 0.0 K/mm3 12/14/18 05:11 Blast Cells # 0.0 K/mm3 12/14/18 05:11 WBC Morphology Not Reportable 12/14/18 05:11 WBC Morphology TNR 12/14/18 05:11 Hypersegmented Neuts Not Reportable 12/14/18 05:11 Hyposegmented Neuts Not Reportable 12/14/18 05:11 Hypogranular Neuts Not Reportable 12/14/18 05:11 Not Reportable 12/14/18 05:11 Not Reportable 12/14/18 05:11 Not Reportable 12/14/18 05:11 Not Reportable 12/14/18 05:11 Not Reportable 12/14/18 05:11 Not Reportable 12/14/18 05:11 Consistent w auto 12/14/18 05:11 Not Reportable 12/14/18 05:11 Plt Clumps, EDTA Not Reportable 12/14/18 05:11 Not Reportable 12/14/18 05:11 Not Reportable 12/14/18 05:11 Not Reportable 12/14/18 05:11 Plt Morphology Comment Not Reportable 12/14/18 05:11 RBC Morphology Not Reportable 12/14/18 05:11 Dimorphic RBCs Not Reportable 12/14/18 05:11 Not Reportable 12/14/18 05:11 Not Reportable 12/14/18 05:11 1+ 12/14/18 05:11 1+ 12/14/18 05:11 Not Reportable 12/14/18 05:11 Not Reportable 12/14/18 05:11 Not Reportable 12/14/18 05:11 Not Reportable 12/14/18 05:11 Not Reportable 12/14/18 05:11 Not Reportable 12/14/18 05:11 Not Reportable 12/14/18 05:11 Not Reportable 12/14/18 05:11 Not Reportable 12/14/18 05:11 Not Reportable 12/14/18 05:11 Not Reportable 12/14/18 05:11 Not Reportable 12/14/18 05:11 Not Reportable 12/14/18 05:11 Not Reportable 12/14/18 05:11 1+ 12/14/18 05:11 Acanthocytes (Spur) Not Reportable 12/14/18 05:11 Rouleaux Not Reportable 12/14/18 05:11 Not Reportable 12/14/18 05:11 Not Reportable 12/14/18 05:11 Not Reportable 12/14/18 05:11 Not Reportable 12/14/18 05:11 Hem Pathologist Commnt No 12/14/18 05:11 PT 16.6 Sec. (12.2-14.9) H 12/11/18 08:06 INR 1.26 (0.87-1.13) H 12/11/18 08:06 APTT 33.1 Sec. (24.2-36.6) 12/11/18 08:06 POC ABG pH 7.289 (7.35-7.45) L 12/15/18 12:00 POC ABG pCO2 41.2 (35-45) 12/15/18 12:00 POC ABG pO2 129 (80-105) H 12/15/18 12:00 POC ABG HCO3 19.8 (22-26 mml/L) 12/15/18 12:00 POC ABG Total CO2 21 (23-27mmol/L) 12/15/18 12:00 POC ABG O2 Sat 99 12/15/18 12:00 POC ABG Base Excess -7 ((-2) - (+3)mmol/L) 12/15/18 12:00 45 % 12/15/18 12:00 Sodium 135 mmol/L (137-145) L 12/16/18 07:46 Potassium 5.1 mmol/L (3.6-5.0) H 12/16/18 07:46 Chloride 97.3 mmol/L (98-107) L 12/16/18 07:46 Carbon Dioxide 18 mmol/L (22-30) L 12/16/18 07:46 25 mmol/L 12/16/18 07:46 BUN 83 mg/dL (7-17) H 12/16/18 07:46 2.7 mg/dL (0.7-1.2) H 12/16/18 07:46 Estimated GFR 17 ml/min 12/16/18 07:46 31 % 12/16/18 07:46 Glucose 190 mg/dL (65-100) H 12/16/18 07:46 POC Glucose 196 (70-105) H 12/16/18 11:58 5.7 % (4-6) 12/11/18 08:06 Lactic Acid 1.50 mmol/L (0.7-2.0) 12/11/18 08:06 Calcium 8.4 mg/dL (8.4-10.2) 12/16/18 07:46 Phosphorus 6.10 mg/dL (2.5-4.5) H 12/12/18 06:58 Magnesium 2.60 mg/dL (1.7-2.3) H 12/12/18 06:58 Iron 14 ug/dL (37-170) L 12/12/18 06:58 TIBC 269 mcg/dL (250-450) 12/12/18 06:58 % Saturation 5.20 % 12/12/18 06:58 235 mg/dl (192-382) 12/12/18 06:58 0.20 mg/dL (0.1-1.2) 12/13/18 04:49 < 0.2 mg/dL (0-0.2) 12/11/18 08:06 0.1 mg/dL 12/11/18 08:06 AST 48 units/L (5-40) H 12/13/18 04:49 ALT 88 units/L (7-56) H 12/13/18 04:49 104 units/L (35-129) 12/13/18 04:49 41 units/L (30-135) 12/11/18 08:06 CK-MB (CK-2) 3.1 ng/mL (0.0-4.0) 12/11/18 08:06 CK-MB (CK-2) Rel Index 7.5 (0-4) H 12/11/18 08:06 0.048 ng/mL (0.00-0.029) H 12/11/18 08:06 NT-Pro-B Natriuret Pep > 05827 pg/mL (0-900) H 12/11/18 08:06 6.3 g/dL (6.3-8.2) 12/13/18 04:49 3.2 g/dL (3.9-5) L 12/13/18 04:49 1.0 % 12/13/18 04:49 Triglycerides 67 mg/dL (2-149) 12/11/18 08:06 Cholesterol 151 mg/dL (50-199) 12/11/18 08:06 67 mg/dL (50-130) 12/11/18 08:06 77 mg/dL (40-59) H 12/11/18 08:06 1.96 % 12/11/18 08:06 Vitamin B12 686.2 pg/mL (211-911) 12/12/18 06:58 13.48 ng/mL (7.3-26.0) 12/14/18 13:06 TSH 1.010 mlU/mL (0.270-4.200) 12/11/18 08:06 Free T4 1.55 ng/dL (0.76-1.46) H 12/11/18 08:06 Yellow (Yellow) 12/11/18 12:59 Slightly-cloudy (Clear) 12/11/18 12:59 5.0 (5.0-7.0) 12/11/18 12:59 Ur Specific [place] 1.015 (1.003-1.030) 12/11/18 12:59 30 mg/dl mg/dL (Negative) 12/11/18 12:59 Neg mg/dL (Negative) 12/11/18 12:59 Neg mg/dL (Negative) 12/11/18 12:59 Neg (Negative) 12/11/18 12:59 Neg (Negative) 12/11/18 12:59 Neg (Negative) 12/11/18 12:59 < 2.0 mg/dL (<2.0) 12/11/18 12:59 Ur Leukocyte Esterase Mod (Negative) 12/11/18 12:59 15.0 /HPF (0.0-6.0) H 12/11/18 12:59 1.0 /HPF (0.0-6.0) 12/11/18 12:59 U Epithel Cells (Auto) 2.0 /HPF (0-13.0) 12/11/18 12:59 Hyaline Casts 1 /LPF 12/11/18 12:59 Few /HPF 12/11/18 12:59 Active Medications - Current Medications Current Medications: Generic Name Dose Route Start Last Admin Trade Name Freq PRN Reason Stop Dose Admin Acetaminophen 650 mg 12/11/18 09:48 12/15/18 00:02 Tylenol PO 650 mg Q4H PRN Administration Pain MILD(1-3)/Fever >100.5/JOAQUIN Albuterol 2.5 mg 12/11/18 09:51 12/13/18 03:51 Proventil IH 2.5 mg Q4HRT PRN Administration Shortness Of Breath Albuterol/Ipratropium 1 ampul 12/11/18 12:00 12/16/18 08:52 Duoneb *Not For Prn Use* IH Not Given QIDRT ABDIFATAH Alprazolam 0.5 mg 12/12/18 11:29 12/15/18 21:10 Xanax PO 0.5 mg Q8H PRN Administration Anxiety Arformoterol Tartrate 15 mcg 12/12/18 08:00 12/16/18 08:51 Brovana Nebu IH 15 mcg Q12HRT ABDIFATAH Administration Budesonide 0.5 mg 12/12/18 08:00 12/16/18 08:52 Pulmicort IH 0.5 mg Q12HRT ABDIFATAH Administration Diltiazem HCl 240 mg 12/12/18 10:00 12/15/18 10:28 Cardizem Cd PO 240 mg QDAY ABDIFATAH Administration Doxazosin Mesylate 1 mg 12/12/18 22:00 12/15/18 21:09 Cardura PO 1 mg QHS ABDIFATAH Administration Enoxaparin Sodium 30 mg 12/11/18 10:00 12/15/18 10:45 Lovenox SUB-Q 30 mg QDAY ABDIFATAH Administration Ferrous Sulfate 325 mg 12/12/18 22:00 12/15/18 21:10 Feosol PO Not Given BID ABDIFATAH Ceftriaxone Sodium 2 gm in 100 mls @ 200 mls/hr 12/11/18 10:00 12/15/18 10:28 Rocephin/Ns 2 Gm/100 Ml IV 200 mls/hr Q24HR ABDIFATAH Administration Protocol Insulin Human Lispro 0 unit 12/12/18 07:30 12/15/18 23:08 Humalog SUB-Q 2 unit ACHS ABDIFATAH Administration Protocol Loratadine/Pseudoephedrine Sulfate 1 each 12/13/18 10:00 12/15/18 10:52 Claritin-D 24hr PO Not Given Q24HR ABDIFATAH Lorazepam 2 mg 12/15/18 18:11 12/15/18 23:25 Ativan IV 2 mg Q4H PRN Administration Agitation Methylprednisolone Sodium Succinate 40 mg 12/15/18 12:00 12/16/18 05:46 Solu-Medrol IV 40 mg Q6HR ABDIFATAH Administration Ondansetron HCl 4 mg 12/11/18 09:48 Zofran IV Q8H PRN Nausea And Vomiting Sodium Chloride 10 ml 12/11/18 10:00 12/15/18 21:10 Sodium Chloride Flush Syringe 10 Ml IV 10 ml BID ABDIFATAH Administration Sodium Chloride 10 ml 12/11/18 09:48 Sodium Chloride Flush Syringe 10 Ml IV PRN PRN LINE FLUSH Nutrition/Malnutrition Assess - Dietary Evaluation Nutrition/Malnutrition Findings: Nutrition Notes Start: 12/12/18 16:00 Freq: Status: Active Protocol: Document 12/12/18 16:00 RM (Rec: 12/12/18 16:08 RM [id number]) Nutrition Notes Need for Assessment generated from: MD Order Initial or Follow up Assessment Current Diagnosis Acute Kidney Injury,COPD, Diabetes,Hypertension Other Pertinent Diagnosis UTI, Sacral PU Current Diet Cardiac Labs/Tests Reviewed Pertinent Medications Solu-Medrol Height 5 ft 6 in Weight 61.7 kg Usual Body Weight 62.73 kg [place] Body Weight (kg) 59.09 BMI 21.9 Subjective/Other Information Consulted for nutrition recommendation. Screened for malnutrition risk and skin risk. Pt and pt son in room at time of visit. Pt son answered most of questions on behalf of pt. 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 Stated that pt ate half of her breakfast today. Admitted to pt tiring when chewing food. Stated UBW was 136-140 lbs 3 months ago. Noted temporal wasting. Percent of energy/protein needs met: 74%/56% Burn Absent Trauma Absent #1 Nutrition Diagnosis Malnutrition Etiology decreased appetite, COPD As Evidenced by Signs and Symptoms pt son statement that [employer]ELOPER pt ate 3 small meals daily, temporal wasting Is patient on ventilator? No Is Patient Ambulatory and/or Out of Bed Yes REE-([facility]-ambulatory/OOB) [ 1434.875 [id number]] Calculation Used for Recommendations [facility] Additional Notes Protein Needs: 74-93g (1.2-1. 5g/kg) Fluid needs: 1 ml/kcal Nutrition Intervention Change Diet Order: Cardiac,Consistent CHO, Mech soft w/ground meat Add Supplement/Snack (indicate name/kcal Glucerna 1 daily /protein ) Provides kCal: 220 Provides Protein (gm) 10 Goal #1 Meet at least 75% of calorie and protein needs via PO and ONS intakes Anticipated Discharge Needs: Cardiac/Consistent CHO diet Follow-Up By: 12/19/18 Additional Comments Follow for PO and ONS intakes
[2018-12-16] MEDS ORDERED: MORPHINE IV PRN (14:46)
--- NOTE | 2018-12-16 15:34 | Discharge Summary ---
Providers - Providers Date of Admission: 12/11/18 09:48 Date of discharge: 12/16/18 Attending physician: PAWEL PARIKH 12/11/18 12:51 Consult to Wound/ET Nurse [CONS] Routine Reason For Exam: wound eval 12/12/18 06:15 Consult to Dietitian/Nutrition [CONS] Routine Physician Instructions: Reason For Exam: oral suppplements/Malnutrition Reason for Consult: Nutrition Recommendations Reason for Consult: Malnutrition 12/12/18 06:18 Consult to Physician [CONS] Routine Comment: Consulting Provider: YARA LAIRD Physician Instructions: Reason For Exam: CHF exacerbation 12/12/18 06:22 Consult to Physician [CONS] Routine Comment: Consulting Provider: SHELBI ÁLVAREZ Physician Instructions: Reason For Exam: ROSITA 12/12/18 13:45 Physical Therapy Evaluation and Treat [CONS] Routine Comment: Reason For Exam: weakness 12/13/18 11:43 Occupational Therapy Evaluate and Treat [CONS] Routine Comment: Reason For Exam: weakness 12/13/18 11:59 Consult to Physician [CONS] Routine Comment: Consulting Provider: SAMANTA GOMEZ Physician Instructions: Reason For Exam: Acute resp failure/acute exacerbation COPD Primary care physician: QUALITY ASSURANCE ADVISOR Hospitalization Reason for admission: Worsening shortness of breath and Acute respiratory failure Condition: Stable Pertinent studies: Chest x-ray Renal ultrasound Hospital course: 78 year old female with history of severe COPD , oxygen dependent was admitted through emergency room with the complaints of worsening shortness of breath without any relief with nebulizers and oxygen.Patient was noted to be in acute respiratory distress placed on oxygen nebulizers and IV steroids and IV antibiotics and BiPAP as needed And also had acute kidney injury secondary to ATN, evaluated by editor map and medications optimized, however renal function Continue to deteriorate. Patient's symptoms did not improve and went into acute respiratory failure.Informed the patient and the family members that patient may need to be intubated and placed on ventilator and transferred to ICU. Patient and her 2 sons have indicated to me that patient is a DO NOT RESUSCITATE status and she does not want any intubation or ventilator support CPR, life support ,the son signed the necessary papers and patient was placed on DNR status. Patient's clinical condition continued to deteriorate, continued TREATMENT, family requested hospice, hospice has evaluated And patient is being admitted to inpatient hospice facility, under the care of hospice medical intern Today patient is in acute respiratory distress, minimally communicative, unable to complete sentences Vital signs reviewed, patient is being transferred to inpatient hospice facility Condition at the time of discharge and transfer critical, poor prognosis, patient and family aware. Discharge diagnosis; --End-stage COPD oxygen dependent --Acute hypoxic respiratory failure; secondary to end-stage COPD with exacerbation Patient is in acute distress today, son is at the bedside, poor prognosis --Acute exacerbation of end-stage COPD; Home oxygen dependent, oxygen O2 sats more than 90%, nebulizers IV steroids, IV antibiotics, pulmonary following, very poor prognosis --Type 2 diabetes mellitus; Accu-Chek sliding scale coverage and ADA diet Insulin as needed, hemoglobin A1c 5.7, diabetic diet --Elevated BNP; normal echocardiogram, ejection fraction normal Cardiology evaluated the patient, no evidence of congestive heart --Acute kidney injury; worsening renal function, secondary to ATN Closely monitor renal function, avoid nephrotoxins, nephrology following --History of iron deficiency anemia; closely monitor H&H Transfuse as needed, iron supplements --History of GI bleed in the past; closely monitor --Mild malnutrition. Albumin 3.1-3.5, Supportive care --DO NOT RESUSCITATE status Patient is critically ill with poor prognosis at the time of discharge and transfer Disposition: [facility]) Time spent for discharge: 32 min Core Measure Documentation - Palliative Care Palliative Care/ Comfort Measures: Hospice Care - Core Measures Any of the following diagnoses?: none Exam - Constitutional Vitals: Temp Pulse Resp BP Pulse Ox 98.0 F 125 H 14 97/69 100 12/16/18 08:41 12/16/18 13:55 12/16/18 14:05 12/16/18 08:41 12/16/18 15:02 General appearance: Present: mild distress, well-nourished - EENT Eyes: Present: PERRL, EOM intact - Neck Neck: Present: supple, normal ROM - Respiratory Respiratory effort: normal Respiratory: bilateral: diminished, negative: rales, rhonchi, wheezing - Cardiovascular Rhythm: regular Heart Sounds: Present: S1 & S2 - Extremities Extremities: no ischemia, No edema Peripheral Pulses: within normal limits - Abdominal General gastrointestinal: Present: soft, non-tender, non-distended, normal bowel sounds - Integumentary Integumentary: Present: clear, warm - Musculoskeletal Musculoskeletal: strength equal bilaterally, generalized weakness - Psychiatric Psychiatric: agitated, other (confused) - Neurologic Neurologic: moves all extremities Plan Activity: advance as tolerated, fall precautions Diet: other (diet as tolerated) Additional Instructions: Discharge and transfer to inpatient hospice, under the care of hospice medical intern Follow up with: PRIMARY CARE, [Primary Care Provider] - 3-5 Days
--- NOTE | 2018-12-16 18:18 | Event Note ---
Date: 12/16/18 Nurse called and reported that the patient . I came and evaluated the patient, patient is unresponsive Pupils dilated, no cardiopulmonary activity noted Patient pronounced . Time of ; 6:00 p.m.[18:00hrs] 12/16/2018 Multiple family members including , sons and daughter At the bedside
--- NOTE | 2018-12-16 18:18 | Death Summary ---
Summary - Providers Date of service: 12/16/18 Consults: 12/11/18 12:51 Consult to Wound/ET Nurse [CONS] Routine Reason For Exam: wound eval 12/12/18 06:15 Consult to Dietitian/Nutrition [CONS] Routine Physician Instructions: Reason For Exam: oral suppplements/Malnutrition Reason for Consult: Nutrition Recommendations Reason for Consult: Malnutrition 12/12/18 06:18 Consult to Physician [CONS] Routine Comment: Consulting Provider: YARA LAIRD Physician Instructions: Reason For Exam: CHF exacerbation 12/12/18 06:22 Consult to Physician [CONS] Routine Comment: Consulting Provider: SHELBI ÁLVAREZ Physician Instructions: Reason For Exam: ROSITA 12/12/18 13:45 Physical Therapy Evaluation and Treat [CONS] Routine Comment: Reason For Exam: weakness 12/13/18 11:43 Occupational Therapy Evaluate and Treat [CONS] Routine Comment: Reason For Exam: weakness 12/13/18 11:59 Consult to Physician [CONS] Routine Comment: Consulting Provider: SAMANTA GOMEZ Physician Instructions: Reason For Exam: Acute resp failure/acute exacerbation COPD Attending: PAWEL PARIKH - summary Date of admission: 12/11/18 09:48 Date of : 12/16/18 (at 18:00 hrs[ 06:00 Pm]) Reason for admission: Worsening shortness of breath and Acute respiratory failure Significant findings: 78 year old female with history of severe COPD , oxygen [facility] with the complaints of worsening shortness of breath without any relief with nebulizers and oxygen.Patient was noted to be in acute respiratory distress placed on oxygen nebulizers and IV steroids and IV antibiotics and BiPAP as needed And also had acute kidney injury secondary to ATN, evaluated by safe technician and medications optimized, however renal function .Continue to deteriorate. Patient's symptoms did not improve and went into acute respiratory failure.Informed the patient and the family members that patient may need to be intubated and placed on ventilator and transferred to ICU. Patient and her 2 sons have indicated to me that patient is a DO NOT RESUSCITATE status and she does not want any intubation or ventilator support CPR, life support ,the son signed the necessary papers and patient was placed on DNR status. Patient's clinical condition continued to deteriorate, continued TREATMENT, fam errol requested hospice, hospice has evaluated,And patient is being admitted to inpatient hospice facility, under the care of hospice medical unit secretary Today patient is in acute respiratory distress, minimally communicative, And patient went into respiratory arrest with no cardiopulmonary activity. I came and evaluated the patient, patient was unresponsive pupils dilated, no cardiopulmonary activity noted. Patient pronounced on 12/17/2018 at 6 PM [18:00 Hrs] Multiple family members at the bedside Final Diagnosis: --Cardiopulmonary arrest --Acute hypoxic respiratory failure; secondary to end-stage COPD with exacerbation Patient is in acute distress today, son is at the bedside, poor prognosis --End-stage COPD --Acute exacerbation of end-stage COPD; Home oxygen dependent, oxygen O2 sats more than 90%, nebulizers IV steroids, IV antibiotics, pulmonary following, very poor prognosis --Type 2 diabetes mellitus; Accu-Chek sliding scale coverage and ADA diet Insulin as needed, hemoglobin A1c 5.7, diabetic diet --Elevated BNP; normal echocardiogram, ejection fraction normal Cardiology evaluated the patient, no evidence of congestive heart --Acute kidney injury; worsening renal function, secondary to ATN Closely monitor renal function, avoid nephrotoxins, nephrology following --History of iron deficiency anemia; closely monitor H&H Transfuse as needed, iron supplements --History of GI bleed in the past; closely monitor --Mild malnutrition. Albumin 3.1-3.5, Supportive care --DO NOT RESUSCITATE status Critical care time 45 minutes Pertinent studies: Chest x-ray Renal ultrasound - Final diagnosis (1) Acute and chronic respiratory failure with hypoxia Note: Final diagnosis: (2) Cardiopulmonary arrest Note: Final diagnosis: (3) Do not resuscitate status Note: Final diagnosis: (4) End stage chronic obstructive pulmonary disease Note: Final diagnosis: (5) Acute renal failure Note: Final diagnosis: (6) Acidosis, metabolic, with respiratory acidosis Note: Final diagnosis: (7) Malnutrition of moderate degree Note: Final diagnosis:
== END 2018-12-16 18:15 | DRG 189 ==
LOC: ED 06:56 → 4A 09:48
PROVIDERS: ADMIT Internal Medicine; ATTEND Internal Medicine
PROC: 4A033R1 Measurement of Arterial Saturation, Peripheral, Percutaneous Approach (ICD-10-PCS; principal; 2018-12-13)
PROC: 5A09357 Assistance with Respiratory Ventilation, Less than 24 Consecutive Hours, Continuous Positive Airway Pressure (ICD-10-PCS; 2018-12-15)
PROC: 5A09357 Assistance with Respiratory Ventilation, Less than 24 Consecutive Hours, Continuous Positive Airway Pressure (ICD-10-PCS; 2018-12-16)
DX: J96.21 Acute and chronic respiratory failure with hypoxia (principal); N17.0 Acute kidney failure with tubular necrosis; J44.1 Chronic obstructive pulmonary disease with (acute) exacerbation; N30.00 Acute cystitis without hematuria; E44.0 Moderate protein-calorie malnutrition; E87.2 Acidosis; R00.0 Tachycardia, unspecified; I48.91 Unspecified atrial fibrillation; D64.9 Anemia, unspecified; I46.9 Cardiac arrest, cause unspecified; E86.0 Dehydration; E87.5 Hyperkalemia; N18.9 Chronic kidney disease, unspecified; E11.22 Type 2 diabetes mellitus with diabetic chronic kidney disease; I12.9 Hypertensive chronic kidney disease with stage 1 through stage 4 chronic kidney disease, or unspecified chronic kidney disease; I71.4 Abdominal aortic aneurysm, without rupture; Z66 Do not resuscitate; Z88.0 Allergy status to penicillin; Z87.891 Personal history of nicotine dependence; Z99.81 Dependence on supplemental oxygen; Z68.23 Body mass index [BMI] 23.0-23.9, adult; Z90.49 Acquired absence of other specified parts of digestive tract
CPT/HCPCS: 36415; 36600; 71045; 76770; 80048; 80053; 80061; 80076; 81001; 82140; 82550; 82553; 82607; 82747; 82803; 82962; 83036; 83550; 83735; 83880; 84100; 84439; 84443; 84484; 85007; 85025; 85610; 85730; 93005; 93010; 94640; 94660; 94667; 94668; 94669; 94760; 96360; G0378; J0456; J0696; J1650; J1815; J2060; J2930; J7030; J7050